=== PATIENT | female | born 1935 | race Caucasian/White ===

== ENCOUNTER → 2016-08-23 16:03 | Outpatient (CLI) | payer MEDICARE, OTHER ==
[2016-05-01 13:09] VITALS: BMI 19.5
[~2016-08-23 16:03] MED LIST: ADVAIR 250/501 DISK INH; COUMADIN3 MG PO; COUMADIN5 MG PO; DOXYCYCLINE HY100 M2 PO; GARLIC1 CAP PO; LEVAQUIN750 MG PO; LIPITOR40 MG PO; LOTENSIN20 MG; MEDROL DOSE PACK4 MG PO; MULTIPLE VITAMI1 TA1 PO; NORVASC5 MG PO; NYSTATIN ORAL SU5 ML PO; PRILOSEC20 MG PO; PROVENTIL HFA6.7 GM INH; SPIRIVA18 MCG INH; VITAMIN E400 UNI2 PO
== END | disposition home or self-care (01) ==
LOC: D.RAD 14:00
DX: J18.9 Pneumonia, unspecified organism (principal)

== ENCOUNTER → 2016-09-06 12:52 | Outpatient (CLI) | payer MEDICARE, OTHER ==
[2016-05-01 13:09] VITALS: BMI 19.5
== END | disposition home or self-care (01) ==
LOC: D.CT 12:52
DX: J18.9 Pneumonia, unspecified organism (principal)

== ENCOUNTER → 2016-09-27 13:22 | Outpatient (CLI) | payer MEDICARE, OTHER ==
[2016-05-01 13:09] VITALS: BMI 19.5
== END | disposition home or self-care (01) ==
LOC: D.CT 13:22
DX: I73.9 Peripheral vascular disease, unspecified (principal)

== ENCOUNTER → 2017-05-24 11:41 | Outpatient (CLI) | payer MEDICARE, OTHER ==
[2016-05-01 13:09] VITALS: BMI 19.5
== END | disposition home or self-care (01) ==
LOC: D.RAD 11:41
DX: J44.9 Chronic obstructive pulmonary disease, unspecified (principal)

== ENCOUNTER → 2017-09-30 12:56 | Outpatient (CLI) | payer MEDICARE, OTHER ==
[2016-05-01 13:09] VITALS: BMI 19.5
== END | disposition home or self-care (01) ==
LOC: D.RAD 12:56
DX: J18.9 Pneumonia, unspecified organism (principal)

== ENCOUNTER 2018-03-25 13:17 | Emergency (ER) | payer MEDICARE, OTHER ==
[~2018-03-25] VITALS: Ht 167.6 cm; Wt 44.1 kg
[2018-03-25 13:31] VITALS: Ht 167.6 cm; Wt 44.1 kg
[2018-03-25 13:58] LABS: BASOPHILS 0.9 % (0-2); EOSINOPHILS 3.6 % (0-7); HEMATOCRIT 28.8 % (36.0-48.0); HEMOGLOBIN 9.3 g/dL (12-16); IMMATURE GRANULOCYTES 0.2 % (0-5); LYMPHOCYTES 21.4 % (15-50); MCH 25.7 pg (26.0-34.0); MCHC 32.3 g/dL (31.0-37.0); MCV 79.6 fL (80.0-100.0); MEAN PLATELET VOLUME 10.6 fL (7.4-10.4); MONOCYTES 6.9 % (2-11); PLATELET COUNT 291 10x3/uL (130-400); RBC 3.62 10x6/uL (4.00-5.40); WBC 9.5 10x3/uL (4.8-10.8)
[2018-03-25 14:13] LABS: APTT 34.8 SECONDS (22.8-39.4); INR 2.17 (0.85-1.17); PROTIME 23.6 SECONDS (11.6-15.0)
[2018-03-25 14:16] LABS: ALBUMIN 3.4 g/dL (3.4-5.0); ALKALINE PHOSPHATASE 104 U/L (46-116); ALT (SGPT) 18 U/L (10-68); BILIRUBIN - TOTAL 0.33 mg/dL (0.2-1.3); CALC OSMOLALITY 272 mosm/kg (275-300); CALCIUM 8.6 mg/dL (8.5-10.1); CARBON DIOXIDE 33.2 mmol/L (21.0-32.0); CHLORIDE - SERUM 98 mmol/L (98-107); GLUCOSE 93 mg/dL (74-106); POTASSIUM - SERUM 4.6 mmol/L (3.5-5.1); PROTEIN - SERUM 6.9 g/dL (6.4-8.2); SODIUM 136 mmol/L (136-145); UREA NITROGEN 16 mg/dL (7-18); eGFR NON AFRICAN AMERICAN 56 mL/min (90-120)
[2018-03-25 14:27] LABS: CKMB 2.6 U/L (0.0-3.6); CREATINE KINASE 139 UL (21-215)
[2018-03-25 14:28] LABS: TROPONIN-I < 0.017 ng/mL (0.000-0.060)
[2018-03-25] MEDS ORDERED: VIBRAMYCIN50 MG/5 ML PO (15:44)
[2018-03-25 16:35] VITALS: BP 177/74
== END 2018-03-25 16:37 | disposition home or self-care (01) ==
LOC: D.ER 13:17
PROVIDERS: Emergency Medicine
DX: R06.00 Dyspnea, unspecified (principal); J44.9 Chronic obstructive pulmonary disease, unspecified; I10 Essential (primary) hypertension; I73.9 Peripheral vascular disease, unspecified; Z99.81 Dependence on supplemental oxygen; F17.200 Nicotine dependence, unspecified, uncomplicated

== ENCOUNTER 2019-02-01 17:36 | Inpatient (IN) | payer MEDICARE, OTHER ==
[~2019-02-01] VITALS: Ht 167.6 cm; Wt 40.8 kg
--- NOTE | ~2019-02-01 | EC ---
PATIENT:RL SIU DATE OF SERVICE: 02/01/19 SEX: F MEDICAL RECORD: [id number] DATE OF : 35 LOCATION:D.MS Paul221 AGE OF PATIENT: 83 ADMISSION DATE: 02/01/19 REFERRING PHYSICIAN: INTERPRETING PHYSICIAN: GABRIELE HERMAN MD ECHOCARDIOGRAM REPORT ECHO CHARGES 4 ECHO COMPLETE Date: 02/02/19 CLINICAL DIAGNOSIS: CHF/DYSPNEA/OK ECHOCARDIOGRAPHIC MEASUREMENTS (adult normal given) AC root (d.<3.7cm) 2.5 cm LV Septum d (<1.2 cm> 1.2 cm Valve Excursion 0.5 cm LV Septum (systole) 1.7 cm Left Atria (s.<4.0cm> 2.5 cm LVPW d(<1.2cm) 1.1 cm RV (d.<2.3cm) 2.0 cm LVPW (sytole) 1.7 cm LV diastole(<5.6CM) 5.4 cm MV E-F(>70mm/sec) cm LV systole 3.3 cm LVOT Diameter 1.5 cm MV exc.(>10mm) cm Est.ejection fraction (50-75%) % DOPPLER: LVIT cm/sec A 200 cm/sec E 163 cm/sec LA cm/sec RVSP 54.0 mmHg LVOT 116 cm/sec AOP1/2T m/s Asc. Ao 391 cm/sec RVOT 97.0 cm/sec RA cm/sec PA 253 cm/sec AV Gradient Peak 61.3 mmHg AV Mean 39.0 mmHg AV Area 0.5 cm MV Gradient Peak 15.4 mmHg MV Mean 4.7 mmHg MV Area cm COMMENTS: Coronary Care Unit Nurse: Kailyn WILSONOE Trust Vault Custodian: 1 Dr. Herman TAPE# PACS Pericardial Effusion N DATE OF SERVICE: 02/02/2019 PROCEDURE: Echocardiogram. FINDINGS: 1. Left ventricular chamber size is within normal limits. Left ventricular systolic function is normal. Overall ejection fraction estimated at 55%. 2. Left atrium, right atrium, right chamber size is within normal limits. 3. Valvular structures: Aortic valve demonstrates severe calcific aortic stenosis, valve area calculates to 0.5 cm-squared with gradient of 61 mm across ECHOCARDIOGRAM REPORT [id number] RL SIU the valve. The remaining valvular structures have normal structure and motion. 4. Doppler interrogation elsewise reveals moderate mitral regurgitation, moderate tricuspid regurgitation, no other valvular insufficiency or stenosis. Pulmonary systolic pressure is elevated at 54 mmHg. 5. No evidence of pericardial effusion or left ventricular thrombus. TRANSINT:[id number] Voice Confirmation ID: [id number] DOCUMENT ID: [id number] GABRIELE HERMAN MD CC: [id number] DICTATION DATE: 02/02/19 1108 ALUMINA PLANT SUPERVISOR: 02/02/19 1155 ADM IN [place] [address] [place] [address]
--- NOTE | ~2019-02-01 | OP ---
PATIENT NAME: RL ISU MEDICAL RECORD: [id number] :35 LOCATION:D.M2 D.2119 ADMISSION DATE:02/01/19 SURGEON: GABRIELE SILVER MD DATE OF OPERATION: 02/04/2019 PROCEDURE: Selective coronary angiography. INDICATION: Non-Q-wave myocardial infarction. DESCRIPTION OF PROCEDURE: After informed consent was obtained and after a detailed description of the risks, benefits as well as alternative therapies, the patient elected to proceed with angiogram and heart catheterization. The right radial area was prepped and draped in normal sterile fashion. Right radial artery was cannulated via modified Seldinger technique with placement of 5-Indonesian sheath. All catheters exchanged through this sheath. FINDINGS: Left ventriculogram was not performed due to inability to cross the aortic valve secondary to the aortic stenosis. SELECTIVE CORONARY ANGIOGRAPHY: Left main, left anterior descending, left circumflex, right coronary all have gzac-sz-kuptiygz irregularities, but no discrete flow-limiting stenosis. OVERALL IMPRESSION: Diffuse korf-rz-ornvtyvf coronary artery disease is present, but no flow-limiting stenosis. Her myocardial infarction was secondary to demand ischemia from the aortic stenosis. Center medical management on treatment of the aortic stenosis. TRANSINT:[id number] Voice Confirmation ID: [id number] DOCUMENT ID: [id number] GABRIELE SILVER MD CC: [id number] DICTATION DATE: 02/04/19 1252 AUTOMATION CONTROLS ENGINEER: 02/04/19 1336 ADM IN [facility] [address] [place] [address]
--- NOTE | ~2019-02-01 | HEMODYNAMI ---
PATIENT:RL SIU MEDICAL RECORD: [id number] : 35 [id number] ADMISSION DATE: 02/01/19 Generatedon:02/04/201912:57 Patient name: RL SIU Patient #: [id number] SSN: : 1935 Date of study: 02/04/2019 Page: Of Hemodynamic Procedure Report Patient Data Patient Demographics Procedure consent was obtained First Name: RL Gender: Female Last Name: SALBAODR : 1935 Middle Initial: LUCIO Age: 83 year(s) Patient #: [id number] Race: Unknown Additional ID: [id number] Contact details [address]: [address] [place] [address] State: [place] City: [place] Zip code: [address] Past Medical History Allergies Allergen Reaction Date Comments Reported Other allergy 02/04/2019 Contrast, PCN, ASA, Adhesives. Admission Admission Data Admission Date: 02/01/2019 Admission Time: 18:39 Admit Source: Other Room #: D.2119 Lab Results Lab Result Date: 02/04/2019 Lab Result Time: 4:37 Biochemistry Name Units Result Min Max BUN mg/dl 26 --(----)-* 7 18 Creatinine mg/dl 1 --(--*-)-- 0.6 1.3 CBC Name Units Result Min Max Hematocrit % 71.9 --(----)-* 42 54 Hemoglobin g/dl 10.8 *-(----)-- 13.5 17.5 Procedure Procedure Types Cath Procedure Diagnostic Procedure LHC LHC w/Coronaries Procedure Description Procedure Date Procedure Date: 02/04/2019 Procedure Start Time: 12:43 Procedure End Time: 12:52 Procedure Staff Name Function Shorty Cardenas RT Scrub Sharmaine Juarez RN Nurse Ronald Herman MD Performing Physician Madhu Dash RT Monitor Procedure Data Cath Procedure Fluoroscopy Diagnostic fluoroscopy Total fluoroscopy Time: 2 time: 2 min min Diagnostic fluoroscopy Total fluoroscopy dose: 487 dose: 487 mGy mGy Contrast Material Contrast Material Type Amount (ml) Isovue 300 55 Entry Location Entry Primary Successful Side Size Upsize Upsize Entry Closure Levy ccessful Closure Location (Fr) 1 (Fr) 2 (Fr) Remarks Device Remarks Radial Right 6 Fr Mechanical artery Short Compression Estimated blood loss: 5 ml Diagnostic catheters Device Type Used For End Catheter Placement DIAGNOSTIC Halstad 110cm 5 Procedure Fr catheter ([id number]) Procedure Complications No complications Procedure Medications Medication Administration Route Dosage Oxygen 8 l/min Lidocaine 2% added to field 20 Heparin Flush Bag added to field 2 bags (1000units/500ml NS) 0.9% NaCl I.V. Radial Cocktail I.A. 1 syringe (Verapamil 2mg/Nitro 400mcg/Heparin 1500units) Hemodynamics Rest HGB: 10.8 (g/dl) Heart Rate: 81 (bpm) Snapshots Pre Cath Intra NCS Post Cath Vital Signs Time Heart Resp SPO2 etCO2 NIBP (mmHg) Rhythm Pain Sedation Rate (ipm) (%) (mmHg) Status Level (bpm) 12:27:34 77 12 95 0 155/76(113) NSR 0 (11) 10(A) , No pain 12:31:29 80 15 96 0 181/76(116) NSR 0 (11) 10(A) , No pain 12:35:25 78 22 93 0 164/77(109) NSR 0 (11) 10(A) , No pain 12:39:20 78 20 94 0 162/96(127) NSR 0 (11) 10(A) , No pain 12:43:20 90 39 100 0 154/58(114) NSR 0 (11) 10(A) , No pain 12:47:03 81 31 93 0 128/57(90) NSR 0 (11) 10(A) , No pain 12:50:44 87 16 94 0 117/53(92) NSR 0 (11) 10(A) , No pain Medications Time Medication Route Dose Verified Delivered Reason Notes Effectiveness by by 12:18:06 Oxygen NC- 8 l/min Ronald Schmid used for Cont fr om high Virgil Juarez steel welder respiratory. flow Instructed to monitor closely due to COPD and resp. distress. 12:37:07 Lidocaine 2% added 20ml Ronald Cardenas for local to vial Virgil Herman MD anesthetic field 12:37:18 Heparin Flush added 2 bags Ronald Cardenas used for Bag to Virgil Herman MD procedure (1000units/500ml field NS) 12:37:24 0.9% NaCl I.V. KVO Ronald Schmid Per rate Virgil Juarez RN physician ml/hr 12:44:51 Radial Cocktail I.A. 1 Ronald Cardenas for (Verapamil syringe Virgil Herman MD vasodilation 2mg/Nitro 400mcg/Hepari Procedure Log Time Note 12:00:56 Shorty Cardenas RT(R) (CV) sent for patient. Start room use. 12:18:06 Oxygen 8 l/min NC- high flow was administered by Sharmaine Juarez RN; used for procedure; Cont from respiratory. Instructed to monitor closely due to COPD and resp. distress. 12:18:26 Informed consent obtained and on chart 12:18:31 Admit Source: Other 12:18:54 Diagnostic Cath status Urgent 12:19:05 Time tracking: Regular hours (M-F 7:00 - 5:00) 12:19:08 Plan of Care:Hemodynamics will remain stable., Cardiac rhythm will remain stable., Comfort level will be maintained., Respiratory function will remain adequate., Patient/ family verbilizes understanding of procedure., Procedure tolerated without complication., Recovers from procedure without complications.. 12:19:16 Patient received from Med/Surg to CCL 2 Alert and oriented. Tansferred to table in Supine position. 12:19:17 Warm blankets applied, and hollis hugger turned on for patient comfort. 12:19:18 ECG and BP/O2 sat monitors applied to patient. 12:19:18 Correct patient and procedure confirmed by team. 12:19:50 H&P Date Dictated: 02/02/2019 Within 30 days and on chart.. 12:19:53 Pre-op teaching completed and patient verbalized understanding. 12:19:53 Pre-procedure instructions explained to patient. 12:19:54 Family in patients room. 12:19:56 Patient NPO since Midnight. 12:25:09 Patient allergic to Other allergyContrast, PCN, ASA, Adhesives. 12:25:10 Is the patient allergic to Iodine/contrast media? Yes. 12:25:11 Was the patient premedicated? Yes 12:26:51 Is patient on blood thinner?Yes 12:26:53 ACC The patient was administered the following blood thiners within the last 24 hours: ACCPlavix 12:27:04 Vital chart was started 12:27:07 Baseline sample Acquired. 12:27:11 Rhythm: sinus rhythm 12:27:13 Full Disclosure recording started 12:35:38 Patient diabetic? No. 12:35:41 Previous problem with sedation/anesthesia? No ? 12:35:43 Snore? No 12:35:44 Sleep apnea? No 12:35:45 Deviated septum? No 12:35:46 Sticks out tongue? Yes 12:35:46 Opens mouth fully? Yes 12:35:54 Airway obstruction? Yes COPD 12:35:56 Dentures? Yes OUT 12:35:59 Pre procedure: right dorsailis pedis pulse 2+ Normal; easily identifiable; not easily obliterated 12:36:01 Modified Jero's test Ulnar < 7 seconds 12:36:03 Patient pain scale 0/10 ?. 12:36:13 IV patent on arrival in left hand with 0.9% NaCl at [facility]. 12:36:49 Lab Result : Hemoglobin 10.8 g/dl 12:36:49 Lab Result : Hematocrit 71.9 % 12:36:49 Lab Result : BUN 26 mg/dl 12:36:49 Lab Result : Creatinine 1 mg/dl 12:36:51 Lab results completed and on chart. 12:36:55 Right Radial & Right Groin area was prepped with chlora-prep and draped in sterile fashion 12:36:57 Sharps counted by scrub and verified by R.N. 12:36:57 Alarms reviewed by R. N. 12:37:00 Use device set Radial Dx or PCI 12:37:01 Medline Cath Pack ([id number]) opened to sterile field. 12:37:01 ACIST Syringe (19814) opened to sterile field. 12:37:02 ACIST Manifold (96289) opened to sterile field. 12:37:02 ACIST Hand Control (09992) opened to sterile field. 12:37:02 Bag Decanter (2002S) opened to sterile field. 12:37:03 MBrace Wrist Support ([id number]) opened to sterile field. 12:37:03 Tegaderm 4 x 4 (1626W) opened to sterile field. 12:37:05 SHEATH 6FR Slender (15-0568) opened to sterile field. 12:37:05 EMERALD Guide Wire (100-485) opened to sterile field. 12:37:07 Lidocaine 2% 20ml vial added to field was administered by Ronald Herman MD; for local anesthetic; 12:37:12 Physician paged 12:37:18 Heparin Flush Bag (1000units/500ml NS) 2 bags added to field was administered by Ronald Herman MD; used for procedure; 12:37:24 0.9% NaCl KVO rate ml/hr I.V. was administered by Sharmaine Juarez RN; Per physician; 12:40:41 Zero performed for pressure channel P1 12:40:45 Zero performed for pressure channel P1 12:40:51 Final Timeout: patient, procedure, and site verified with staff and physician. All members of the team are in agreement. 12:40:51 --------ALL STOP TIME OUT------ 12:40:51 Physician arrived 12:40:53 Right Radial & Right Groin site verified by team. 12:40:56 Fire Safety Assessment: A--An alcohol-based skin anteseptic being used preoperatively., C--Open oxygen or nitrous oxide is being used., D--An ESU, laser, or fiber-optic light is being used. 12:41:01 Physical assessment completed. ASA score P 3 - A patient with severe systemic disease as per Ronald Herman MD. 12:41:18 3a) 45-59 Moderately reduced kidney function. 12:41:21 Maximum allowable contrast does (3.7 X eGFR X 0.75)155 ml. 12:41:31 Sedation plan: None Medication:Lidocaine 12:41:39 Procedure started. 12:43:37 Local anesthetic to right radial artery with Lidocaine 2% by Ronald Herman MD.INITIAL ACCESS ONLY 12:43:44 A 6 Fr Short sheath was inserted into the Right Radial artery 12:43:57 A DIAGNOSTIC Halstad 110cm 5 Fr catheter (062596) was advanced over the wire and used for Procedure. 12:44:51 Radial Cocktail (Verapamil 2mg/Nitro 400mcg/Heparin 1500units) 1 syringe I.A. was administered by Ronald Herman MD; for vasodilation; 12:45:09 GLIDE WIRE ANGLE 260cm (TN0119) opened to sterile field. 12:45:19 GLIDE wire advanced. 12:45:57 Wire removed. 12:46:17 LCA angiography performed. 12:48:07 RCA angiography performed. 12:48:20 Catheter removed. 12:48:26 TR BAND Standard ([id number]) opened to sterile field. 12:48:34 Sheath removed intact; hemostasis achieved with Mechanical Compression to the Right Radial artery. 12:50:10 Procedure ended.(Physican Out) 12:50:54 Fluoroscopy time 02.00 minutes. 12:50:59 Fluoroscopy dose: 487 mGy 12:50:59 Flurop Dose total: 487 12:51:19 Contrast amount:Isovue 300 55ml. 12:51:21 Sharps counted by scrub and verified by R.N. 12:51:25 TR band inflated with 13cc of air. 12:51:27 Insertion/operative site no bleeding no hematoma. 12:51:34 Post right radial artery:stable, soft, clean and dry 12:51:35 Post Procedure Pulses reassessed and unchanged 12:51:38 Post-procedure physical assessment completed. ASA score P 3 - A patient with severe systemic disease as per Ronald Herman MD. 12:51:40 Post procedure rhythm: unchanged. 12:51:41 Estimated blood loss: 5 ml 12:51:42 Post procedure instruction explained to patient.Patient verbalizes understanding. 12:51:43 Patient needs reinforcement of post procedure teaching. 12:52:12 Procedure and supply charges have been captured, reviewed, submitted and are correct. 12:52:14 Procedure Complication : No complications 12:52:16 Vital chart was stopped 12:52:17 See physician's report for complete and final results. 12:52:18 Report given to PCU. 12:52:20 Patient transfered to PCU with Stretcher. 12:52:22 Full Disclosure recording stopped 12:52:22 Procedure ended. 12:52:26 End room use (Document Last) Device Usage Item Name Manufacture Quantity Catalog Hospital Part Current Minimal Lot# / Number Charge Number Stock Stock Serial# Code ACIST Acist 1 68683 387441 987683 [id number] 20 [id number] Engineering Medline Medline 1 [id number] 636474 14971 657358 5 Cath Pack ([id number]) Bag Microtek 1 2001S 935696 88051 729477 5 Decanter Medical Inc. () ACIST Hand Acist 1 78491 224642 811665 250916 5 Control Medical (67397) Systems Inc ACIST Acist 1 76438 936250 607771 614076 5 Manifold Medical (85103) Systems Inc Tegaderm 4 3M 1 1626W 363940 047419 230637 5 x 4 (1626W) MBrace Advanced 1 140-0250-00 378404 98794 638664 5 Wrist Vascular Support Dynamics ([id number]) EMERALD [place] 1 199-704 608739 035236 216566 5 Guide Wire [facility] (986-508) SHEATH 6FR Terumo 1 [id number] 830241 062071 347981 5 Slender (80-1060) DIAGNOSTIC Terumo 1 40-4843 659089 430135 678906 5 Halstad 110cm 5 Fr catheter (961404) GLIDE WIRE Terumo 1 [id number] 413985 558664 651443 5 ANGLE 260cm (VE6847) TR BAND Terumo 1 [id number] 356830 228561 102575 40 Standard (DUD17LYM) Signature Audit [place] Stage Time Signature Unsigned Intra-Procedure 02/04/2019 Madhu Dash RT(R) 12:53:16 PM RT(R) 02/04/2019 12:56:55 PM Intra-Procedure 02/04/2019 Madhu Dash 12:57:32 PM RT(R) Signatures Monitor : Madhu Dash RT Signature : Date : Time : [facility] [address] [place] [address]
[~2019-02-01 17:36] MED LIST changes: +LOTENSIN 10 MG10 MG PO; -LOTENSIN20 MG; +VIBRAMYCIN50 MG/5 ML PO
[2019-02-01 17:51] VITALS: BP 163/76
[2019-02-01 18:19] LABS: BASOPHILS 0.5 % (0-2); EOSINOPHILS 1.2 % (0-7); HEMOGLOBIN 8.5 g/dL (12-16); IMMATURE GRANULOCYTES 0.2 % (0-5); LYMPHOCYTES 10.5 % (15-50); MCH 20.6 pg (26.0-34.0); MCHC 30.4 g/dL (31.0-37.0); MEAN PLATELET VOLUME 11.5 fL (7.4-10.4); MONOCYTES 4.7 % (2-11); NEUTROPHILS 82.9 % (40-80); PLATELET COUNT 267 10x3/uL (130-400); RBC 4.12 10x6/uL (4.00-5.40); RDW 17.4 % (11.5-14.5)
[2019-02-01 18:24] LABS: APTT 42.1 SECONDS (22.8-39.4); INR 2.74 (0.85-1.17); PROTIME 28.3 SECONDS (11.6-15.0)
[2019-02-01 18:25] LABS: ALKALINE PHOSPHATASE 94 U/L (46-116); ALT (SGPT) 22 U/L (10-68); BILIRUBIN - TOTAL 0.39 mg/dL (0.2-1.3); CALC OSMOLALITY 282 mosm/kg (275-300); CALCIUM 8.3 mg/dL (8.5-10.1); CARBON DIOXIDE 28.1 mmol/L (21.0-32.0); CHLORIDE - SERUM 104 mmol/L (98-107); CKMB 2.7 U/L (0.0-3.6); CREATINE KINASE 78 UL (21-215); CREATININE - SERUM 0.2 mg/dL (0.6-1.3); POTASSIUM - SERUM 4.3 mmol/L (3.5-5.1); PRO BNP 15555 pg/mL (0-450); PROTEIN - SERUM 6.5 g/dL (6.4-8.2); SODIUM 139 mmol/L (136-145); UREA NITROGEN 15 mg/dL (7-18); eGFR NON AFRICAN AMERICAN > 90 mL/min (90-120)
[2019-02-01 18:28] LABS: GLUCOSE 171 mg/dL (74-106)
[2019-02-01 18:51] LABS: TROPONIN-I 0.554 ng/mL (0.000-0.060)
--- NOTE | 2019-02-01 19:07 | NUR ---
PT LAYING IN BED. RESIPRATIONS ARE EVEN AND UNLABORED. NO DISTRESS NTOED VSS. PT IS BEING ADMINISTERED O2 VIA BIPAP. WILL CONTINUE TO MONITOR.
--- NOTE | 2019-02-01 19:46 | NUR ---
DR TORRES AT PATIENT BEDSIDE AT THIS TIME
[2019-02-01 20:04] LABS: % SATURATION 3 % (15-55); IRON 12 ug/dl (35-150); TOTAL IRON BIND CAPACITY 394 ug/dl (260-445); UNSAT IRON BIND CAPACITY 382 ug/dl (150-375)
--- NOTE | 2019-02-01 20:37 | NUR ---
RECEIVED PT TO FLOOR FROM ER VIA STRETCHER. PT TAKEN OFF OF BIPAP AND PUT ON 7L HI-SERGEI NC TO EAT. REVIEWED HOME MEDS AND HISTORY. ASSESSMENT COMPLETE PER FLOW-SHEET. WILL CONTINUE TO MONITOR.
[2019-02-01] MEDS ORDERED: POT CHLORIDE TAB 10M PO (21:11)
[2019-02-01] MEDS ORDERED: FUROSEMIDE20 MG PO (21:12)
[2019-02-01 21:22] VITALS: BP 131/45
[2019-02-02] VITALS (12 sets, daily range): BP systolic 102–132; BP diastolic 40–65; Ht 167.6 cm; Wt 40.8 kg
[2019-02-02 00:15] LABS: CKMB 6.8 U/L (0.0-3.6); CREATINE KINASE 265 UL (21-215)
[2019-02-02 00:16] LABS: TROPONIN-I 0.598 ng/mL (0.000-0.060)
[2019-02-02 05:10] LABS: BASOPHILS 0.1 % (0-2); EOSINOPHILS 0 % (0-7); HEMATOCRIT 25.5 % (36.0-48.0); HEMOGLOBIN 7.7 g/dL (12-16); LYMPHOCYTES 8.1 % (15-50); MCH 20.2 pg (26.0-34.0); MCHC 30.2 g/dL (31.0-37.0); MCV 66.9 fL (80.0-100.0); MEAN PLATELET VOLUME 10.7 fL (7.4-10.4); MONOCYTES 0.4 % (2-11); NEUTROPHILS 91.4 % (40-80); PLATELET COUNT 295 10x3/uL (130-400); RBC 3.81 10x6/uL (4.00-5.40); RDW 17.5 % (11.5-14.5)
[2019-02-02 05:20] LABS: INR 2.65 (0.85-1.17); PROTIME 27.5 SECONDS (11.6-15.0)
[2019-02-02 05:38] LABS: WBC 7.6 10x3/uL (4.8-10.8)
[2019-02-02 05:56] LABS: ALBUMIN 2.7 g/dL (3.4-5.0); ALKALINE PHOSPHATASE 79 U/L (46-116); ALT (SGPT) 21 U/L (10-68); BILIRUBIN - TOTAL 0.29 mg/dL (0.2-1.3); CALC OSMOLALITY 285 mosm/kg (275-300); CALCIUM 8.5 mg/dL (8.5-10.1); CHLORIDE - SERUM 102 mmol/L (98-107); CKMB 2.1 U/L (0.0-3.6); CREATINE KINASE 51 UL (21-215); GLUCOSE 201 mg/dL (74-106); POTASSIUM - SERUM 4.2 mmol/L (3.5-5.1); PROTEIN - SERUM 6.4 g/dL (6.4-8.2); SODIUM 139 mmol/L (136-145); UREA NITROGEN 17 mg/dL (7-18)
[2019-02-02 06:10] LABS: CREATININE - SERUM 1.1 mg/dL (0.6-1.3); TROPONIN-I 0.602 ng/mL (0.000-0.060); eGFR NON AFRICAN AMERICAN 50 mL/min (90-120)
[2019-02-02 09:34] LABS: APPEARANCE CLEAR (CLEAR); BACTERIA FEW /hpf (NONE SEEN); BILIRUBIN NEGATIVE (NEGATIVE); COLOR STRAW (YELLOW); EPITHELIAL CELLS RARE /hpf (0-5); GLUCOSE NEGATIVE (NEGATIVE); KETONE NEGATIVE (NEGATIVE); NITRITE NEGATIVE (NEGATIVE); PROTEIN NEGATIVE (NEGATIVE); RED CELLS - URINE RARE /hpf (0-5); SPECIFIC GRAVITY 1.005 (1.005-1.020); UROBILINOGEN NORMAL (NORMAL); WHITE CELLS - URINE OCC /hpf (0-5)
--- NOTE | 2019-02-02 09:50 | CN ---
PATIENT NAME:RL SIU MEDICAL RECORD: [id number] : 35 LOCATION:D.MS Paul2218 ADMIT DATE: 02/01/19 ACCOUNT: [id number] CONSULTING PHYSICIAN: GABRIELE SILVER MD REFERRING PHYSICIAN: VIVIANE TORRES DO DATE OF CONSULTATION: 02/02/2019 DIAGNOSES: 1. Non-Q-wave myocardial infarction. 2. Coronary artery disease. 3. Chronic obstructive pulmonary disease. 4. Smoking history. 5. Hyperlipidemia. 6. Hypertension. 7. Coumadin anticoagulation. 8. Gastroesophageal reflux disease. HISTORY OF PRESENT ILLNESS: Mrs. Siu presents with increasing shortness of breath and chest pain, has a positive troponin for a non-Q-wave myocardial infarction. She does not have a history of coronary artery disease. She has a history of aortic stenosis. She also has a history of congestive heart failure. Her chest x-ray was compatible with pulmonary edema. She has received IV Lasix. She has received diuresis. Her breathing is better. She continues to be treated aggressively for her COPD. PHYSICAL EXAMINATION: GENERAL APPEARANCE: Well-nourished, well-developed, appears stated age. Level of distress, comfortable. PSYCHIATRIC: Mental status, alert, normal affect. Orientation, oriented to time, place and person. EYES: Lids and conjunctiva, noninjected. No discharge, no pallor. ENT: Lips, teeth, gums, normal dentition. Oropharynx, no cyanosis, no pallor. NECK: Carotid arteries, bilateral normal upstroke, no bruits, no thrills. JUGULAR VEINS: No jugular venous pressure or distention. CERVICAL LYMPH NODES: Nontender, nonenlarged. THYROID: Not enlarged. Nontender. No nodules. LUNGS: Respiratory effort, unlabored. CHEST: Normal curvature. No thoracic deformity. No chest wall tenderness. Percussion, resonant. Auscultation, clear. No wheezes, no rales, no rhonchi. CARDIOVASCULAR: Precordial exam, nondisplaced. No heaves or pericardial thrills. Rate and rhythm, regular. Heart sounds, normal S1, normal S2. No S3, no gallop, no rub. Systolic murmur, not heard. Diastolic murmur, not heard. EXTREMITIES: No cyanosis, no edema. Peripheral pulses, full and equal in all extremities, except as noted. No bruits appreciated. ABDOMEN: Soft, nondistended. Normal aorta. No bruit. Nontender. No masses. Liver, nontender, no hepatomegaly. Spleen, nontender, no splenomegaly. MUSCULOSKELETAL: No joint tenderness. No joint swelling. No erythema. NEUROLOGICAL: Normal gait, normal strength, normal tone. SKIN: Warm and dry. OVERALL IMPRESSION: Non-Q-wave myocardial infarction. At this time, we will get an echocardiogram today, start her on Plavix. She has already been started on Lopressor and her heart rate is better. At this time, we would hold her Lotensin and center treatment of the hypertension on beta blockade to lower the heart rate as well. We will continue her statin. With continued shortness of CONSULT REPORT [id number] RL SIU breath and chest pain, would consider coronary angiography depending upon how she does clinically with medical management and the results of the echocardiogram. TRANSINT:[id number] Voice Confirmation ID: [id number] DOCUMENT ID: [id number] GABRIELE SILVER MD at 0950 CC: [id number] DICTATION DATE: 02/02/19813 EPIC INTERFACE ANALYST: 02/02/19 08 ADM IN [facility] [address] [place] [id number]
[2019-02-02 12:47] LABS: CKMB 1.8 U/L (0.0-3.6); CREATINE KINASE 66 UL (21-215)
[2019-02-02 12:50] LABS: TROPONIN-I 0.445 ng/mL (0.000-0.060)
[2019-02-02 14:04] LABS: % SATURATION 2 % (15-55); IRON 9 ug/dl (35-150); TOTAL IRON BIND CAPACITY 359 ug/dl (260-445); UNSAT IRON BIND CAPACITY 350 ug/dl (150-375)
[2019-02-02 14:18] LABS: FERRITIN 14 ng/mL (3-244); LDH 362 U/L (81-234)
--- NOTE | 2019-02-02 18:55 | NUR ---
I have reviewed this patient and I concur with the Shift Assessment completed by the Licensed Practical Nurse today this shift.
--- NOTE | 2019-02-02 20:00 | NUR ---
ASSESSMENT PER FLOWSHEET. O2 ON 6 LITERS HIGH FLOW. HOB UP 80 DEGREES. SON AT BEDSIDE. TELM. SHOWS SR WITH HR 90. SCD'S ON KEVIN MAT TO BED SR UP X2 CALL LIGHT WITHIN REACH. CHURCH TO BEDSIDE DRAINAGE.
--- NOTE | 2019-02-02 20:48 | NUR ---
I have reviewed this patient and I concur with the Shift Assessment completed by the Licensed Practical Nurse today this shift.
--- NOTE | 2019-02-02 21:30 | NUR ---
MEDS GIVEN PER MAR.
--- NOTE | 2019-02-02 22:00 | NUR ---
REQUEST BIPAP MACHINE BE ON. RT HERE TO PUT BIPAP ON.
--- NOTE | 2019-02-02 22:45 | NUR ---
PATIENT TAKES OFF BIPAP. TURNS SELF IN BED.
--- NOTE | 2019-02-03 | NUR ---
EYES CLOSED RESIRATIONS WITH EASE AND UNLABORED.
[2019-02-03 01:17] VITALS: BP 116/40
[2019-02-03 05:20] VITALS: BP 123/42
[2019-02-03 06:26] LABS: BASOPHILS 0 % (0-2); EOSINOPHILS 0 % (0-7); HEMATOCRIT 30.3 % (36.0-48.0); IMMATURE GRANULOCYTES 0.2 % (0-5); LYMPHOCYTES 6.1 % (15-50); MCH 22.7 pg (26.0-34.0); MCHC 32.3 g/dL (31.0-37.0); MEAN PLATELET VOLUME 10.8 fL (7.4-10.4); MONOCYTES 2.6 % (2-11); NEUTROPHILS 91.1 % (40-80); PLATELET COUNT 267 10x3/uL (130-400); RBC 4.31 10x6/uL (4.00-5.40); RDW 19.9 % (11.5-14.5)
[2019-02-03 06:29] LABS: HEMOGLOBIN 9.8 g/dL (12-16); MCV 70.3 fL (80.0-100.0); WBC 12.1 10x3/uL (4.8-10.8)
[2019-02-03 06:48] LABS: ANION GAP 9.3 mmol/L (8-16); CALCIUM 8.5 mg/dL (8.5-10.1); CARBON DIOXIDE 30.6 mmol/L (21.0-32.0); CREATININE - SERUM 1.2 mg/dL (0.6-1.3); POTASSIUM - SERUM 3.9 mmol/L (3.5-5.1)
[2019-02-03 07:02] LABS: INR 2.31 (0.85-1.17); PROTIME 24.7 SECONDS (11.6-15.0)
[2019-02-03 08:44] VITALS: BP 133/59
[2019-02-03 12:11] LABS: FOLATE (FOLIC ACID) - SERUM >20.0 ng/mL (>3.0)
[2019-02-03 12:50] VITALS: BP 134/63
[2019-02-03 16:41] VITALS: BP 158/67
--- NOTE | 2019-02-03 20:00 | NUR ---
ASSESSMENT PER FLOWSHEET. IV PATENT RT FOREARM SALINE LOCKED. PT C/O BEING SOB AND TOO HOT. FAN PLACED IN ROOM AIR CONDITIONER LOWERED TO 55 DEGREES. PT REQUESTING HER BIPAP MACHINE NOTIFIED RT TECH.
--- NOTE | 2019-02-03 20:15 | NUR ---
RT TECH HERE PLACED BIPAP ON PATIENT.
[2019-02-03 20:24] VITALS: BP 127/79
--- NOTE | 2019-02-03 21:30 | NUR ---
MEDS GIVEN PER MAR.
--- NOTE | 2019-02-03 23:00 | NUR ---
PATIENT REMOVED BIPAP MACHINE. FEELING BETTER NOW.
[2019-02-04 00:36] VITALS: BP 161/60
[2019-02-04 04:45] VITALS: BP 140/60
[2019-02-04 05:19] LABS: ANION GAP 9.2 mmol/L (8-16); CALCIUM 8.7 mg/dL (8.5-10.1); CARBON DIOXIDE 31.3 mmol/L (21.0-32.0)
[2019-02-04 05:27] VITALS: BP 133/62
[2019-02-04 05:32] LABS: POTASSIUM - SERUM 4.5 mmol/L (3.5-5.1)
[2019-02-04 05:48] LABS: HEMOGLOBIN 10.5 g/dL (12-16); MCH 22.9 pg (26.0-34.0); MCHC 31.8 g/dL (31.0-37.0); MCV 71.9 fL (80.0-100.0); MEAN PLATELET VOLUME 11.4 fL (7.4-10.4); PLATELET COUNT 258 10x3/uL (130-400); RBC 4.59 10x6/uL (4.00-5.40); RDW 21.1 % (11.5-14.5); WBC 10.8 10x3/uL (4.8-10.8)
[2019-02-04 05:58] LABS: INR 1.4 (0.85-1.17); PROTIME 16.6 SECONDS (11.6-15.0)
[2019-02-04 07:45] LABS: LYMPHOCYTES 17 % (15-50); MONOCYTES 4 % (2-11); NEUTROPHILS 78 % (40-80); PLATELET ESTIMATE NORMAL
[2019-02-04 07:46] LABS: ANISOCYTOSIS OCC; HYPOCHROMASIA OCC
[2019-02-04 08:50] VITALS: BP 140/58
--- NOTE | 2019-02-04 09:57 | MORECARE ---
CASE MANAGEMENT DISCHARGE SUMMARY PATIENT: RL ISU UNIT: [id number] ADM DATE: 02/01/19 AGE: 83 : 35 SEX: F ROOM/BED: D.2218 AUTHOR: ELIZADOC PHYSICIAN: REFERRING PHYSICIAN: VIVIANE TORRES DO DATE OF SERVICE: 02/04/19 Discharge Plan Patient Name: RL SIU Facility: [facility]:[place] : 1935 Planned Disposition: Anticipated Discharge Date: Discharge Date: Expected LOS: Initial Reviewer: [email or web address] Initial Review Date: 02/04/2019 Generated: 02/04/19 10:57 am Comments DCP- Discharge Planning Updated by [email or web address]: Merna Maribel on 02/04/19 8:[address] Patient Name: RL SIU Admission Status: ER Accout number: [id number] Admission Date: 02-01-2019 : 1935 Admission Diagnosis:HEART FAILURE, UNSPECIFIED Attending: VIVIANE TORRES Current LOS: 3 Anticipated DC Date: Planned Disposition: Primary Insurance: MEDICARE A & B Discharge Planning Comments: CM MET WITH PATIENT ABOUT DC PLANNING/NEEDS. STATES LIVES WITH HER SON AND IS INDEPENDANT AT HOME. PT AT BEDSIDE NOW. I DISCUSSED HH, SNF, AND [facility] WITH HER. SHE IS NOT INTERESTED RIGHT NOW BUT SHE LOOKS LIKE SHE COULD BENEFIT FROM IT. I NOTICED SHE WAS VERY WEAK AND SOB. CM TO FOLLOW AND ASSIST NEEDED. Fish Processor: Merna López DCPIA - Discharge Planning Initial Assessment Updated by [email or web address]: Merna López on 02/04/19 9:52 am * Is the patient Alert and Oriented? Yes * PCP IN [place] * Pharmacy [facility] * Preadmission Environment Home with Family * ADLs Independent * Equipment Cane Nebulizer Oxygen * Other Equipment NOT SURE IT MAY BE A TRILOGY. * List name and contact numbers for known caregivers / representatives who currently or will assist patient after discharge: EKATERINA ANDRES, * Community resources currently utilized None * Additional services required to return to the preadmission environment? Yes * Can the patient safely return to the preadmission environment? Yes * Has this patient been hospitalized within the prior 30 days at any hospital? No Patient Name: RL SIU Page 11762 at 0957 All edits/amendments must be made on the electronic document DICTATION DATE: 02/04/19955 TIMBER SIZER: DIANELYS 02/04/19955 RPT#: [id number] DC DATE: STATUS: ADM IN [facility] [address] [place] [address] END OF REPORT
--- NOTE | 2019-02-04 11:30 | NUR ---
CONSENTS TO [facility]
--- NOTE | 2019-02-04 11:40 | NUR ---
IV SITED TO LEFT FOREARM X2 STICKS USING ASEPTIC TECH,20G. IV DCD FRON RIGHT AC WITH CATH TIP INTACT.PT STATES IT WAS TO TENDER.PREMEDS ORDERED
--- NOTE | 2019-02-04 12:14 | NUR ---
TO BARREL CHARRER HELPER VIA BED
[2019-02-04 13:18] VITALS: BP 128/65
--- NOTE | 2019-02-04 13:21 | NUR ---
RECIEVED FROM ELECTRICAL ELECTRONICS ENGINEERS. VS WNL. RIGHT WRIST STABLE WITH TR BAND INTACT. WILL MONITOR.
--- NOTE | 2019-02-04 15:34 | NUR ---
TR BAND DCD WITHOUT BLEEDING OR HEMATOMA NOTED. WILL MONITOR.
[2019-02-05 00:30] VITALS: BP 132/62
--- NOTE | 2019-02-05 00:44 | NUR ---
I have reviewed this patient and I concur with the Shift Assessment completed by the Licensed Practical Nurse today this shift.
[2019-02-05 04:00] VITALS: BP 134/60
--- NOTE | 2019-02-05 07:06 | NUR ---
REPORT RECEIVED. WILL CONTINUE WITH POC. PT CURRENTLY LYING SEMI FOWLERS. CALL LIGHT W/I REACH. PT IS AAO AND UP WITH ASSIST. RR EVEN AND UNLABORED ON 8L HIGH FLOW NC. NS INFUSING @KVO VIA L.WRIST PIV. PT HAS FREQUENT PRODUCTIVE COUGH WITH WHITE/YELLOW SPUTUM. PT DENIES ANY NEEDS AT THIS TIME. FALL PRECAUTIONS IN PLACE. NO S/S OF DISTRESS NOTED. WILL CTM.
[2019-02-05 07:21] LABS: BASOPHILS 0 % (0-2); EOSINOPHILS 0.3 % (0-7); HEMATOCRIT 33.5 % (36.0-48.0); HEMOGLOBIN 10.4 g/dL (12-16); IMMATURE GRANULOCYTES 0.2 % (0-5); LYMPHOCYTES 23.2 % (15-50); MCH 22.5 pg (26.0-34.0); MCV 72.4 fL (80.0-100.0); MEAN PLATELET VOLUME 11.2 fL (7.4-10.4); MONOCYTES 7.1 % (2-11); NEUTROPHILS 69.2 % (40-80); PLATELET COUNT 259 10x3/uL (130-400); RBC 4.63 10x6/uL (4.00-5.40); RDW 21.8 % (11.5-14.5); WBC 12.1 10x3/uL (4.8-10.8)
[2019-02-05 07:25] LABS: INR 1.22 (0.85-1.17); PROTIME 14.8 SECONDS (11.6-15.0)
[2019-02-05 07:35] LABS: CALCIUM 8.4 mg/dL (8.5-10.1); CARBON DIOXIDE 28.7 mmol/L (21.0-32.0); CREATININE - SERUM 1.1 mg/dL (0.6-1.3)
[2019-02-05 07:36] LABS: POTASSIUM - SERUM 3.7 mmol/L (3.5-5.1)
[2019-02-05 08:27] VITALS: BP 116/82
[2019-02-05 11:51] VITALS: BP 121/83
--- NOTE | 2019-02-05 14:49 | MORECARE ---
CASE MANAGEMENT DISCHARGE SUMMARY PATIENT: RL SIU UNIT: [id number] ADM DATE: 02/01/19 AGE: 83 : 35 SEX: F ROOM/BED: D.2778 AUTHOR: MARIA ISABEL KAY PHYSICIAN: REFERRING PHYSICIAN: VIVIANE TORRES DO DATE OF SERVICE: 02/05/19 Discharge Plan Patient Name: RL SIU Facility: [facility]:[place] : 1935 Planned Disposition: Inpatient Rehab Anticipated Discharge Date: Discharge Date: Expected LOS: Initial Reviewer: [id number] Initial Review Date: 02/04/2019 Generated: 02/05/19 3:49 pm Comments DCP- Discharge Planning Updated by [email or web address]: Merna López on 02/04/19 8:[address] Patient Name: RL SIU Admission Status: ER Accout number: [id number] Admission Date: 02-01-2019 : 1935 Admission Diagnosis:HEART FAILURE, UNSPECIFIED Attending: VIVIANE TORRES Current LOS: 3 Anticipated DC Date: Planned Disposition: Primary Insurance: MEDICARE A & B Discharge Planning Comments: CM MET WITH PATIENT ABOUT DC PLANNING/NEEDS. STATES LIVES WITH HER SON AND IS INDEPENDANT AT HOME. PT AT BEDSIDE NOW. I DISCUSSED HH, SNF, AND IPRH WITH HER. SHE IS NOT INTERESTED RIGHT NOW BUT SHE LOOKS LIKE SHE COULD BENEFIT FROM IT. I NOTICED SHE WAS VERY WEAK AND SOB. CM TO FOLLOW AND ASSIST NEEDED. [employer] Supervisor: Merna López DCPIA - Discharge Planning Initial Assessment Updated by [email or web address]: Merna López on 02/04/19 9:52 am * Is the patient Alert and Oriented? Yes * PCP IN [place] * Pharmacy [facility] * Preadmission Environment Home with Family * ADLs Independent * Equipment Cane Nebulizer Oxygen * Other Equipment NOT SURE IT MAY BE A TRILOGY. * List name and contact numbers for known caregivers / representatives who currently or will assist patient after discharge: EKATERINA ANDRES, * Community resources currently utilized None * Additional services required to return to the preadmission environment? Yes * Can the patient safely return to the preadmission environment? Yes * Has this patient been hospitalized within the prior 30 days at any hospital? No Last DP export: 02/04/19 8:57 am Patient Name: RL SIU Page 56588 at 1449 All edits/amendments must be made on the electronic document DICTATION DATE: 02/05/191448 ENGINEERING DRAWINGS CHECKER: DIANELYS 02/05/191448 RPT#: [id number] DC DATE: STATUS: ADM IN [facility] [address] [place] [address] END OF REPORT
--- NOTE | 2019-02-05 14:51 | NUR ---
PT STATES,"IF MY SON TRIES TO SEND ME TO A ASSISTED I WILL TAKE OFF MY OXYGEN AND SUFFOCATE MYSELF. THEY DONT FEED ME AND NEGLECT ME. I WONT DO IT." INFORMED LORA WITH CASE MANAGEMENT WHO HAD LONG DISCUSSION WITH THE GRANDAUGHTERS ABOUT GETTING APS INVOLVED. WILL CTM.
--- NOTE | 2019-02-05 15:11 | MORECARE ---
CASE MANAGEMENT DISCHARGE SUMMARY PATIENT: RL SIU UNIT: [id number] ADM DATE: 02/01/19 AGE: 83 : 35 SEX: F ROOM/BED: D.2944 AUTHOR: ELIZA,DOC PHYSICIAN: REFERRING PHYSICIAN: VIVIANE TORRES DO DATE OF SERVICE: 02/05/19 Discharge Plan Patient Name: RL SIU Facility: [facility]:[place] : 1935 Planned Disposition: Inpatient Rehab Anticipated Discharge Date: Discharge Date: Expected LOS: Initial Reviewer: [id number] Initial Review Date: 02/04/2019 Generated: 02/05/19 4:11 pm Comments DCP- Discharge Planning Updated by [id number]: Clint Curry on 02/05/19 2:[address] Patient Name: RL SIU Encounter No: [id number] : 1935 Primary Insurance: MEDICARE A & B Anticipated DC Date: Planned Disposition: Inpatient Rehab External Planned Provider: [facility] DCP follow-up note: CM RECEIVED REQUEST FROM FAMILY MEMBER TO SPEAK TO THEM. CM SPOKE TO PT'S GRANDDAUGHTER, CRISTO SIU, , OUTSIDE PT'S ROOM SHE DID NOT WANT TO TALK IN FRONT OF PT. CRISTO REPORTS SHE DOES NOT THINK PT SHOULD RETURN TO HER LIVING SITUATION WITH SABINE FATHER, PT'S SON. PT LIVES WITH DMITRY SIU, PT'S SON. PT HAS TOLD CRISTO THAT PT IS AFRAID OF HER SON, HAS TO HIDE FOOD IN THE ROOM TO HAVE FOOD TO EAT AND IS AFRAID OF HER SON. CRISTO REPORTS CALLING ADULT PROTECTIVE SERVICES MULTIPLE TIMES AND NOTHING IS DONE ABOUT IT. CRISTO REPORTS THAT DMITRY CAME UP TO THE HOSPITAL AND TOOK ALL OF PT'S PERSONAL BELONGINGS OUT OF PT'S ROOM. CM REVIEWED CHART AND CALLED ADULT PROTECTIVE SERVICES [phone], PROVIDED INFORMATION GIVEN TO CM BY PT'S GRANDDAUGHTER. REPORT TAKEN, CASE #[id number]. CM PROVIDED REFERENCE NUMBER TO GRANDDAUGHTER. PT'S GRANDDAUGHTER REPORTS PLAN CONTINUES TO BE FOR INPATIENT REHAB. CM SPOKE TO DR. YING WHO INFORMED CM THAT PT WILL NEED REHAB SERVICES. CM SPOKE TO PT AND FAMILY IN ROOM; PT REPORTS SHE WILL CONSIDER REHAB. PT'S GRANDDAUGHTER STATES THEY DO WANT REHAB AT [place]. PT REPORTS THAT SHE DOES NOT WANT TO GO TO A PENITENTIARY FACILITY. CM RECEIVED INPATIENT REHAB PRESCREENING ORDER. CM WAITING INPATIENT REHAB PRESCREENING BY [facility] INPATIENT REHAB. Clint Curry, CASE MANAGEMENT DCP- Discharge Planning Updated by [id number]: Merna López on 02/04/19 8:[address] Patient Name: RL SIU Admission Status: ER Accout number: [id number] Admission Date: 02-01-2019 : 1935 Admission Diagnosis:HEART FAILURE, UNSPECIFIED Attending: VIVIANE TORRES Current LOS: 3 Anticipated DC Date: Planned Disposition: Primary Insurance: MEDICARE A & B Discharge Planning Comments: CM MET WITH PATIENT ABOUT DC PLANNING/NEEDS. STATES LIVES WITH HER SON AND IS INDEPENDANT AT HOME. PT AT BEDSIDE NOW. I DISCUSSED HH, SNF, AND IPRH WITH HER. SHE IS NOT INTERESTED RIGHT NOW BUT SHE LOOKS LIKE SHE COULD BENEFIT FROM IT. I NOTICED SHE WAS VERY WEAK AND SOB. CM TO FOLLOW AND ASSIST NEEDED. Continuing Education Dean: Merna Maribel DCPIA - Discharge Planning Initial Assessment Updated by [email or web address]: Merna López on 02/04/19 9:52 am * Is the patient Alert and Oriented? Yes * PCP DR HARESH RAMIREZ * Pharmacy [facility] * Preadmission Environment Home with Family * ADLs Independent * Equipment Cane Nebulizer Oxygen * Other Equipment NOT SURE IT MAY BE A TRILOGY. * List name and contact numbers for known caregivers / representatives who currently or will assist patient after discharge: DMITRY, SON, * Community resources currently utilized None * Additional services required to return to the preadmission environment? Yes * Can the patient safely return to the preadmission environment? Yes * Has this patient been hospitalized within the prior 30 days at any hospital? No Last DP export: 02/05/19 1:49 pm Patient Name: RL SIU Page 32092 at 1511 All edits/amendments must be made on the electronic document DICTATION DATE: 02/05/19 1510 DIE MAKER STAMPING: DIANELYS 02/05/190 RPT#: [id number] DC DATE: STATUS: ADM IN [facility] [address] [place] [address] END OF REPORT
[2019-02-05 15:55] VITALS: BP 151/61
--- NOTE | 2019-02-05 19:05 | NUR ---
AROUSES EASILY AT THIS TIME BED IA LOW AND LOCKED KEVIN ALARM IS IN PLACE CALL LIGHT IS IN REACH. O2 IN PLACE AT 8 L HF RESP APPEAR UNLABORED AT THIS TIME SKIN IS WARM AND DRY LUNGS WITH A FEW FINE CRACKLES BOWEL SOUNDS TIMES 4
[2019-02-05 20:00] VITALS: BP 121/64
[2019-02-06] VITALS: BP 144/77
--- NOTE | 2019-02-06 01:43 | NUR ---
I have reviewed this patient and I concur with the Shift Assessment completed by the Licensed Practical Nurse today this shift.
[2019-02-06 04:00] VITALS: BP 140/59
[2019-02-06 07:06] LABS: ANION GAP 8.1 mmol/L (8-16); CALCIUM 7.9 mg/dL (8.5-10.1); CARBON DIOXIDE 31.3 mmol/L (21.0-32.0); CREATININE - SERUM 0.9 mg/dL (0.6-1.3); POTASSIUM - SERUM 3.4 mmol/L (3.5-5.1)
[2019-02-06 07:16] LABS: INR 1.21 (0.85-1.17); PROTIME 14.8 SECONDS (11.6-15.0)
[2019-02-06 07:24] LABS: BASOPHILS 0.1 % (0-2); EOSINOPHILS 3.4 % (0-7); HEMATOCRIT 34.2 % (36.0-48.0); HEMOGLOBIN 10.5 g/dL (12-16); IMMATURE GRANULOCYTES 0.2 % (0-5); LYMPHOCYTES 24.2 % (15-50); MCH 22.3 pg (26.0-34.0); MCHC 30.7 g/dL (31.0-37.0); MCV 72.8 fL (80.0-100.0); MONOCYTES 6.8 % (2-11); NEUTROPHILS 65.3 % (40-80); PLATELET COUNT 260 10x3/uL (130-400); RDW 22.6 % (11.5-14.5); WBC 10.9 10x3/uL (4.8-10.8)
--- NOTE | 2019-02-06 07:53 | NUR ---
REPORT RECEIVED. WILL CONTINUE WITH POC. PT CURRENTLY LYING SEMI FOWLERS. CALL LIGHT W/I REACH. PT IS AAO AND UP WITH ASSIST. RR EVEN AND UNLABORED ON 8L HIGH FLOW NC. L.WRIST PIV IS SALINE LOCKED. PT DENIES ANY NEEDS AT THIS TIME. WILL CTM.
[2019-02-06 08:38] VITALS: BP 128/64
--- NOTE | 2019-02-06 09:52 | NUR ---
Nutrition follow-up: Diert: low sodium PO intake ~50% of meals Labs reviewed Wt: 89# Ensure TID Will encourage increased po intake RDN following
[2019-02-06 11:30] VITALS: BP 124/75
--- NOTE | 2019-02-06 11:48 | NUR ---
Rehab Note- Acute Inpatient REhab prescreen order received. The patient medical chart reviewed- appears to be an approiate acute inpatient rehab candidate when medically stable- curretnly on 11L/High Flow NC, will need to be weaned down prior to an acute inpatient rehab stay. Will follow at this time. Thank you for this referral! Shannon Cole RN CLinical Liaison, [facility] Rehab
[2019-02-06 14:48] VITALS: BP 131/68
--- NOTE | 2019-02-06 15:24 | NUR ---
PT CURRENTLY RESTING ON LEFT SIDE. CALL LIGHT W/I REACH. RR EVEN AND UNLABORED ON 8L HIGH FLOW NC. L.WRIST PIV IS SALINE LOCKED. NO S/S OF DISTRESS NOTED. WILL CTM.
--- NOTE | 2019-02-06 19:41 | NUR ---
RESUMING PATIENT CARE. PATIENT IS ALERT AND ORIENTED, RESTING COMFORTABLY IN BED. RESPIRATIONS ARE EVEN AND UNLABORED. NO S/S OF DISTRESS. NO C/O PAIN. CALL LIGHT WITHIN REACH. WILL CPOC.
[2019-02-06 20:00] VITALS: BP 124/63
--- NOTE | 2019-02-06 23:46 | NUR ---
PATIENT RESTING COMFORTABLY IN BED. RESPIRATIONS ARE EVEN AND UNLABORED. NO S/S OF DISTRESS. NO C/O PAIN. CALL LIGHT WITHIN REACH. WILL CPOC.
[2019-02-07] VITALS: BP 152/68
[2019-02-07 04:00] VITALS: BP 143/62
[2019-02-07 06:06] LABS: BASOPHILS 0.1 % (0-2); EOSINOPHILS 4.2 % (0-7); HEMATOCRIT 36.6 % (36.0-48.0); HEMOGLOBIN 11.4 g/dL (12-16); IMMATURE GRANULOCYTES 0.3 % (0-5); LYMPHOCYTES 20.3 % (15-50); MCH 22.5 pg (26.0-34.0); MCHC 31.1 g/dL (31.0-37.0); MCV 72.3 fL (80.0-100.0); MONOCYTES 5.6 % (2-11); NEUTROPHILS 69.5 % (40-80); PLATELET COUNT 261 10x3/uL (130-400); RBC 5.06 10x6/uL (4.00-5.40); RDW 23.3 % (11.5-14.5); WBC 13.2 10x3/uL (4.8-10.8)
[2019-02-07 06:36] LABS: ANION GAP 9.7 mmol/L (8-16); CALCIUM 8.2 mg/dL (8.5-10.1); CREATININE - SERUM 0.9 mg/dL (0.6-1.3); MAGNESIUM - SERUM 1.9 mg/dL (1.8-2.4); PHOSPHOROUS 3.9 mg/dL (2.5-4.9); POTASSIUM - SERUM 3.7 mmol/L (3.5-5.1)
[2019-02-07 09:32] VITALS: BP 135/54
[2019-02-07 11:00] VITALS: BP 99/54
--- NOTE | 2019-02-07 12:18 | NUR ---
RESP UL ON 02 6L HIGHFLOW. TELEMETRY SB 58. CALL LIGHT IN REACH. WILL CONT. PLAN OF CARE.
[2019-02-07 15:00] VITALS: BP 112/86
--- NOTE | 2019-02-07 20:21 | NUR ---
INITIAL ROUNDS COMPLETED AT 1910 HRS. PT DENIED ANY DISCOMFORT. RT TX IN PROGRESS. ASSESSMENT COMPLETED AT 1930 HRS. SR PER CM HR 78. O2 6L HIGH FLOW. SOB WITH EXERTION. LUNGS DIMINISHED IN BASES BILAT. IBRAHIM. R WRIST CLEAN, DRY AND INTACT. ACTIVE BOWEL SOUNDS NOTED. BUTTOCKS SLIGHTLY RED. PT REFUSES SCD'S AT THIS TIME. IV TO L WRIST SL. ASSISTED PT TO BR. PT SLIGHTLY UNSTEADY ON FEET. PT HAD MODERATE AMOUNT OF FORMED BROWN STOOL. ASSISTED BACK TO BED. PT SOB WITH EXERTIN. CHURCH DRAINING YELOW URINE. SR UP X2, CALL LIGHT WITHIN REACH.
[2019-02-07 20:30] VITALS: BP 140/53
--- NOTE | 2019-02-07 21:36 | NUR ---
PM MEDS GIVEN. PT DENIES ANY DISCOMFORT. CALL LIGHT WITHIN REACH.
--- NOTE | 2019-02-07 23:46 | NUR ---
PT RESTING WITH EYES CLOSED. RESP EVEN AND REGULAR. SR UP X2, CALL LIGHT WITHIN REACH.
--- NOTE | 2019-02-08 01:48 | NUR ---
PT RESTING WITH EYES CLOSED. RESP EVEN AND REGULAR. SR UP X2, CALL LIGHT WITHIN REACH.
--- NOTE | 2019-02-08 04:06 | NUR ---
PT RESTING WITH EYES CLOSED. RESP EVEN AND REGULAR. SR UP X2, CALL LIGHT WITHIN REACH.
[2019-02-08 04:30] VITALS: BP 138/49
[2019-02-08 05:15] LABS: BASOPHILS 0.2 % (0-2); EOSINOPHILS 3.9 % (0-7); HEMATOCRIT 33.9 % (36.0-48.0); HEMOGLOBIN 10.8 g/dL (12-16); IMMATURE GRANULOCYTES 0.3 % (0-5); LYMPHOCYTES 19.4 % (15-50); MCH 23.1 pg (26.0-34.0); MCHC 31.9 g/dL (31.0-37.0); MCV 72.6 fL (80.0-100.0); MONOCYTES 5.3 % (2-11); NEUTROPHILS 70.9 % (40-80); PLATELET COUNT 226 10x3/uL (130-400); RBC 4.67 10x6/uL (4.00-5.40); RDW 23.8 % (11.5-14.5); WBC 11.5 10x3/uL (4.8-10.8)
[2019-02-08 05:19] LABS: ANION GAP 7.8 mmol/L (8-16); CALCIUM 8.1 mg/dL (8.5-10.1); CARBON DIOXIDE 31.8 mmol/L (21.0-32.0); CREATININE - SERUM 0.8 mg/dL (0.6-1.3); POTASSIUM - SERUM 3.6 mmol/L (3.5-5.1)
--- NOTE | 2019-02-08 06:59 | NUR ---
VSS THROUGHOUT NIGHT. SR PER CM. PT RESTED WELL DURING SHIFT. NEEDS MET; WILL CONTINUE TO MONITOR.
--- NOTE | 2019-02-08 07:00 | NUR ---
RECEIVED REPORT. SHE IS ALERT AND ORIENT. ABLE TO VOICE NEEDS, DENIES ANY CURRENT ONES. HIGHLOW O2 ON AT 6/L. RESP EVEN WITHOUT LABOR WHILE LAYING IN BED. SL IN LEFT WRIST. CL IN REACH
[2019-02-08 07:41] VITALS: BP 132/35
--- NOTE | 2019-02-08 10:10 | NUR ---
UP AMBULATING WITH ROLLING WALKER, PORTABLE O2 AND THERAPY EVELINA WELL
--- NOTE | 2019-02-08 10:45 | NUR ---
DR JOSEPH ROUNDING HIGH FLOW O2 DOWN TO 4L TO SEE IF CAN SAT AT LEAST 90% OR ABOVE, SHE HAS OXYGEN AT HOME. SHE AGREES WITH THIS ALSO.
[2019-02-08 11:38] VITALS: BP 146/47
--- NOTE | 2019-02-08 14:07 | NUR ---
REVIEW OF CAREPLAN COMPLETED AND SAFETY PRECAUTIONS IN PLACE. NO C/O AT THIS TIEM. O2 SAT IS 91% ON 4L HIGHFLOW
[2019-02-08 16:12] VITALS: BP 136/49
[2019-02-08 20:00] VITALS: BP 135/52
--- NOTE | 2019-02-08 23:00 | NUR ---
INITAIL ROUNDS COMPLETED AT 1915 HRS. RT TX IN PROGRESS. ASSESSMENT COMPLETED AT 1999 HRS. VSS. SR PER CM HR 71. O2 4L HIGH FLOW. ALERT AND ORIENTED TO PERSON, PLACE AND TIME. IBRAHIM. LUNGS DIMINISHED IN BASES BILAT. IV TO LDFA WITH IV AB INFUSING. BRUISES NOTED TO BILAT ARMS. DRESSING TO R WRIST CLEAN, DRY AND INTACT. COCCYX SLIGHTLY RED. CHURCH DRAINING YELLOW URINE. PT VERY SOB WITH EXERTION. PM MEDS GIVEN. PT CURRENTLY RESTING WITH EYES CLOSED. RESP EVEN AND REGULAR. SR UP X2, CALL LIGHT WITHIN REACH.
[2019-02-09] VITALS: BP 119/62
--- NOTE | 2019-02-09 00:36 | NUR ---
PT RESTING WITH EYES CLOSED. RESP EVEN AND REGULAR. SR UP X2,CALL LIGHT WITHIN REACH.
--- NOTE | 2019-02-09 02:06 | NUR ---
PT RESTING WITH EYES CLOSED. RESP EVEN AND REGULAR. SR UP X2, CALL LIGHT WITHIN REACH.
[2019-02-09 04:30] VITALS: BP 140/50
--- NOTE | 2019-02-09 04:36 | NUR ---
PT AWAKE; DENIES ANY DISCOMFORT. CALL LIGHT WITHIN REACH.
[2019-02-09 05:27] LABS: BASOPHILS 0.2 % (0-2); HEMATOCRIT 33.1 % (36.0-48.0); HEMOGLOBIN 10.1 g/dL (12-16); IMMATURE GRANULOCYTES 0.2 % (0-5); LYMPHOCYTES 19.7 % (15-50); MCH 22.6 pg (26.0-34.0); MCHC 30.5 g/dL (31.0-37.0); MCV 74.2 fL (80.0-100.0); MONOCYTES 4.2 % (2-11); NEUTROPHILS 72.7 % (40-80); PLATELET COUNT 236 10x3/uL (130-400); RBC 4.46 10x6/uL (4.00-5.40); RDW 24.6 % (11.5-14.5); WBC 11.3 10x3/uL (4.8-10.8)
[2019-02-09 05:32] LABS: ANION GAP 6.9 mmol/L (8-16); CALCIUM 8.1 mg/dL (8.5-10.1); CARBON DIOXIDE 31.8 mmol/L (21.0-32.0); CREATININE - SERUM 0.9 mg/dL (0.6-1.3); POTASSIUM - SERUM 3.7 mmol/L (3.5-5.1)
--- NOTE | 2019-02-09 06:28 | NUR ---
VSS THROUGHOUT NIGHT. SR PER CM. PT DENIED ANY DISCOMFORT. AM BATH DONE, BED LINENS CHANGED. CHURCH CARE DONE. NEEDS MET; WILL CONTINUE TO MONITOR.
--- NOTE | 2019-02-09 07:05 | NUR ---
REPORT RECEIVED. SITTING IN BED WITH O2 ON. RESP EVEN WITHOUT LABOR AT THIS TIME. SHE GETS SHORT OF BREATH WITH ANY EXERTION. ALERT ABLE TO VOICE NEEDS. DENIES ANY AT THIS TIME. SALINE LOCK INTACT.
--- NOTE | 2019-02-09 08:42 | MORECARE ---
CASE MANAGEMENT DISCHARGE SUMMARY PATIENT: RL SIU UNIT: [id number] ADM DATE: 02/01/19 AGE: 83 : 35 SEX: F ROOM/BED: D.6065 AUTHOR: ELIZADOC PHYSICIAN: REFERRING PHYSICIAN: VIVIANE TORRES DO DATE OF SERVICE: 02/09/19 Discharge Plan Patient Name: RL SUI Facility: [facility]:[place] : 1935 Planned Disposition: Inpatient Rehab Anticipated Discharge Date: Discharge Date: Expected LOS: Initial Reviewer: [id number] Initial Review Date: 02/04/2019 Generated: 02/09/19 9:42 am DCP- Discharge Planning Updated by [email or web address]: Clint Curry on 02/05/19 2:[address] Patient Name: RL SIU Encounter No: [id number] : 1935 Primary Insurance: MEDICARE A & B Anticipated DC Date: Planned Disposition: Inpatient Rehab External Planned Provider: [facility] DCP follow-up note: CM RECEIVED REQUEST FROM FAMILY MEMBER TO SPEAK TO THEM. CM SPOKE TO PT'S GRANDDAUGHTER, CRISTO SIU, , OUTSIDE PT'S ROOM SHE DID NOT WANT TO TALK IN FRONT OF PT. CRISTO REPORTS SHE DOES NOT THINK PT SHOULD RETURN TO HER LIVING SITUATION WITH SABINE FATHER, PT'S SON. PT LIVES WITH DMITRY SIU, PT'S SON. PT HAS TOLD CRISTO THAT PT IS AFRAID OF HER SON, HAS TO HIDE FOOD IN THE ROOM TO HAVE FOOD TO EAT AND IS AFRAID OF HER SON. CRISTO REPORTS CALLING ADULT PROTECTIVE SERVICES MULTIPLE TIMES AND NOTHING IS DONE ABOUT IT. CRISTO REPORTS THAT DMITRY CAME UP TO THE HOSPITAL AND TOOK ALL OF PT'S PERSONAL BELONGINGS OUT OF PT'S ROOM. CM REVIEWED CHART AND CALLED ADULT PROTECTIVE SERVICES [phone], PROVIDED INFORMATION GIVEN TO CM BY PT'S GRANDDAUGHTER. REPORT TAKEN, CASE #[id number]. CM PROVIDED REFERENCE NUMBER TO GRANDDAUGHTER. PT'S GRANDDAUGHTER REPORTS PLAN CONTINUES TO BE FOR INPATIENT REHAB. CM SPOKE TO DR. YING WHO INFORMED CM THAT PT WILL NEED REHAB SERVICES. CM SPOKE TO PT AND FAMILY IN ROOM; PT REPORTS SHE WILL CONSIDER REHAB. PT'S GRANDDAUGHTER STATES THEY DO WANT REHAB AT [place]. PT REPORTS THAT SHE DOES NOT WANT TO GO TO A [facility] FACILITY. CM RECEIVED INPATIENT REHAB PRESCREENING ORDER. CM WAITING INPATIENT REHAB PRESCREENING BY [facility] INPATIENT REH[facility]. Clint Curry, CASE MANAGEMENT DCP- Discharge Planning Updated by [id number]: Merna López on 02/04/19 8:[address] Patient Name: RL SIU Admission Status: ER Accout number: [id number] Admission Date: 02-01-2019 : 1935 Admission Diagnosis:HEART FAILURE, UNSPECIFIED Attending: VIVIANE TORRES Current LOS: 3 Anticipated DC Date: Planned Disposition: Primary Insurance: MEDICARE A & B Discharge Planning Comments: CM MET WITH PATIENT ABOUT DC PLANNING/NEEDS. STATES LIVES WITH HER SON AND IS INDEPENDANT AT HOME. PT AT BEDSIDE NOW. I DISCUSSED HH, SNF, AND IPRH WITH HER. SHE IS NOT INTERESTED RIGHT NOW BUT SHE LOOKS LIKE SHE COULD BENEFIT FROM IT. I NOTICED SHE WAS VERY WEAK AND SOB. CM TO FOLLOW AND ASSIST NEEDED. Soil Sampler: Merna López DCPIA - Discharge Planning Initial Assessment Updated by [email or web address]: Merna López on 02/04/19 9:52 am * Is the patient Alert and Oriented? Yes * PCP DR HARESH RAMIREZ * Pharmacy [facility] * Preadmission Environment Home with Family * ADLs Independent * Equipment Cane Nebulizer Oxygen * Other Equipment NOT SURE IT MAY BE A TRILOGY. * List name and contact numbers for known caregivers / representatives who currently or will assist patient after discharge: DMITRY, SON, * Community resources currently utilized None * Additional services required to return to the preadmission environment? Yes * Can the patient safely return to the preadmission environment? Yes * Has this patient been hospitalized within the prior 30 days at any hospital? No Last DP export: 02/05/19 2:11 pm Patient Name: RL SIU Page 71298 at 0842 All edits/amendments must be made on the electronic document DICTATION DATE: 07/08/19 0842 MOUNTER AUTOMATIC: DIANELYS 02/09/1942 RPT#: [id number] DC DATE: STATUS: ADM IN [facility] [address] [place] [address] END OF REPORT
[2019-02-09 09:44] VITALS: BP 109/55
--- NOTE | 2019-02-09 10:45 | NUR ---
SHE HAS BEEN WALKED BY PT. HOYT WELL SHE IS NOW SITTING UP IN CHAIR IN HER ROOM. O2 ON DENIES ANY NEEDS. SHORTNESS OF BREATH WITH EXER.
[2019-02-09 12:37] VITALS: BP 142/40
--- NOTE | 2019-02-09 12:47 | NUR ---
OT NOTE: PERFORMED WELL TODAY. AMB TO BATHROOM WITH MIN ASSIST X 2; TOILET TRANSFER WITH MIN ASSIST; HYGIENE WITH SET UP; AMBULATION WITH WALKER, GAIT BELT, 02,CATHETER, AND MIN ASSIST. TRANSFERRED TO CHAIR WITH MIN ASSIST; UE STRENGTHENING EXS WHILE UP IN CHAIR. DELORES MA, OTR/L
--- NOTE | 2019-02-09 14:57 | NUR ---
SITTING IN BED WATCHING TV ALERT DENIES ANY NEEDS NO CHANGES NOTED
--- NOTE | 2019-02-09 15:43 | MORECARE ---
CASE MANAGEMENT DISCHARGE SUMMARY PATIENT: RL SIU UNIT: [id number] ADM DATE: 02/01/19 AGE: 83 : 35 SEX: F ROOM/BED: D.7518 AUTHOR: ELIZADOC PHYSICIAN: REFERRING PHYSICIAN: VIVIANE TORRES DO DATE OF SERVICE: 02/09/19 Discharge Plan Patient Name: RL SIU Facility: [facility]:[place] : 1935 Planned Disposition: Inpatient Rehab Anticipated Discharge Date: 02/09/19 Discharge Date: Expected LOS: 8 Initial Reviewer: [email or web address] Initial Review Date: 02/04/2019 Generated: 02/09/19 4:43 pm DCP- Discharge Planning Updated by [email or web address]: Clint Curry on 02/05/19 2:[address] Patient Name: RL SIU Encounter No: [id number] : 1935 Primary Insurance: MEDICARE A & B Anticipated DC Date: Planned Disposition: Inpatient Rehab External Planned Provider: [facility] DCP follow-up note: CM RECEIVED REQUEST FROM FAMILY MEMBER TO SPEAK TO THEM. CM SPOKE TO PT'S GRANDDAUGHTER, CRISTO SIU, , OUTSIDE PT'S ROOM SHE DID NOT WANT TO TALK IN FRONT OF PT. CRISTO REPORTS SHE DOES NOT THINK PT SHOULD RETURN TO HER LIVING SITUATION WITH SABINE FATHER, PT'S SON. PT LIVES WITH DMITRY SIU, PT'S SON. PT HAS TOLD CRISTO THAT PT IS AFRAID OF HER SON, HAS TO HIDE FOOD IN THE ROOM TO HAVE FOOD TO EAT AND IS AFRAID OF HER SON. CRISTO REPORTS CALLING ADULT PROTECTIVE SERVICES MULTIPLE TIMES AND NOTHING IS DONE ABOUT IT. CRITSO REPORTS THAT DMITRY CAME UP TO THE HOSPITAL AND TOOK ALL OF PT'S PERSONAL BELONGINGS OUT OF PT'S ROOM. CM REVIEWED CHART AND CALLED ADULT PROTECTIVE SERVICES [phone], PROVIDED INFORMATION GIVEN TO CM BY PT'S GRANDDAUGHTER. REPORT TAKEN, CASE #[id number]. CM PROVIDED REFERENCE NUMBER TO GRANDDAUGHTER. PT'S GRANDDAUGHTER REPORTS PLAN CONTINUES TO BE FOR INPATIENT REHAB. CM SPOKE TO DR. YING WHO INFORMED CM THAT PT WILL NEED REHAB SERVICES. CM SPOKE TO PT AND FAMILY IN ROOM; PT REPORTS SHE WILL CONSIDER REHAB. PT'S GRANDDAUGHTER STATES THEY DO WANT REHAB AT [place]. PT REPORTS THAT SHE DOES NOT WANT TO GO TO A ASSISTED FACILITY. CM RECEIVED INPATIENT REHAB PRESCREENING ORDER. CM WAITING INPATIENT REHAB PRESCREENING BY [facility] INPATIENT REH[facility]. Clint Curry, CASE MANAGEMENT DCP- Discharge Planning Updated by [id number]: Merna López on 02/04/19 8:[address] Patient Name: RL SIU Admission Status: ER Accout number: [id number] Admission Date: 02-01-2019 : 1935 Admission Diagnosis:HEART FAILURE, UNSPECIFIED Attending: VIVIANE TORRES Current LOS: 3 Anticipated DC Date: Planned Disposition: Primary Insurance: MEDICARE A & B Discharge Planning Comments: CM MET WITH PATIENT ABOUT DC PLANNING/NEEDS. STATES LIVES WITH HER SON AND IS INDEPENDANT AT HOME. PT AT BEDSIDE NOW. I DISCUSSED HH, SNF, AND IPRH WITH HER. SHE IS NOT INTERESTED RIGHT NOW BUT SHE LOOKS LIKE SHE COULD BENEFIT FROM IT. I NOTICED SHE WAS VERY WEAK AND SOB. CM TO FOLLOW AND ASSIST NEEDED. Cold Type Artist: Merna Maribel DCPIA - Discharge Planning Initial Assessment Updated by [email or web address]: Merna óLpez on 02/04/19 9:52 am * Is the patient Alert and Oriented? Yes * PCP DR HARESH RAMRIEZ * Pharmacy [facility] * Preadmission Environment Home with Family * ADLs Independent * Equipment Cane Nebulizer Oxygen * Other Equipment NOT SURE IT MAY BE A TRILOGY. * List name and contact numbers for known caregivers / representatives who currently or will assist patient after discharge: EKATERINA ANDRES, * Community resources currently utilized None * Additional services required to return to the preadmission environment? Yes * Can the patient safely return to the preadmission environment? Yes * Has this patient been hospitalized within the prior 30 days at any hospital? No Coverage Notice Reviewer: [id number] - Clint Curry Notice Issued Date-Time: 02/09/2019 15:40 Notice Type: IM Discharge Notice Notice Delivered To: Patient Relationship to Patient: [employer] Operator Name: Delivery Method: HAND - Hand Delivered Samra Days: Prior Verbal Notification: Recipient Understood Notice: Yes Recipient Signature: Yes Med Rec Note Co-signed by Attending: Coverage Notice Comment: Last DP export: 02/09/19 7:42 am Patient Name: RL SIU Page 14558 at 1543 All edits/amendments must be made on the electronic document DICTATION DATE: 02/09/191542 INSECT CONTROL AIDE: DIANELYS 02/09/19 154 RPT#: [id number] DC DATE: STATUS: ADM IN [facility] [address] [place] [address] END OF REPORT
--- NOTE | 2019-02-09 15:54 | MORECARE ---
CASE MANAGEMENT DISCHARGE SUMMARY PATIENT: RL SIU UNIT: [id number] ADM DATE: 02/01/19 AGE: 83 : 35 SEX: F ROOM/BED: D.6167 AUTHOR: ELIZA,DOC PHYSICIAN: REFERRING PHYSICIAN: VIVIANE TORRES DO DATE OF SERVICE: 02/09/19 Discharge Plan Patient Name: RL SIU [facility] [facility] 1935 Planned Disposition: Inpatient Rehab Anticipated Discharge Date: 02/09/19 Discharge Date: Expected LOS: 8 Initial Reviewer: [id number] Initial Review Date: 02/04/2019 Generated: 02/09/19 4:54 pm Comments DCP- Discharge Planning Updated by [email or web address]: Clint Curry on 02/09/19 2:[address] Patient Name: RL SIU Encounter No: [id number] : 1935 Primary Insurance: MEDICARE A & B Anticipated DC Date: 02-09-2019 Planned Disposition: Inpatient Rehab External Planned Provider: [facility] INPATIENT REHAB DCP follow-up note: CM SPOKE TO AMEENA OF ADULT PROTECTIVE SERVICES OUT OF [facility], SHE WILL MEET WITH PT TODAY. THERE IS NO HOLD AT THIS TIME BY ADULT PROTECTIVE SERVICES. CM SPOKE TO MEL OF INPATIENT REHAB, THEY PLAN TO ACCEPT PT TODAY FOR REHAB IF STABLE FOR DISCHARGE. CM SPOKE TO DR. DELACRUZ AND PATO CARRASQUILLO, THEY PLAN TO DISCHARGE PT TO REHAB TODAY. PT NOTIFIED, IN AGREEMENT WITH DISCHARGE TO INPATIENT REHAB TODAY. IMPORTANT MESSAGE FROM MEDICARE PROVIDED AND EXPLAINED. PT ASKED WHO CALLED ADULT PROTECTIVE SERVICES, CM ADVISED THAT CM CALLED DUE TO BEING TOLD PT IS AFRAID OF HER SON. PT STATES SHE IS NOT AFRAID OF HER SON AND HE DOES NOT KEEP FOOD FROM HER AT HOME. PT REPORTS SHE GETS PLENTY TO EAT. PT REPORTS PLAN TO RETURN HOME WITH "DMITRY" UPON DISCHARGE FROM REHAB. [facility] INPATIENT REHAB TO CONTACT MED 2 NURSE WITH ROOM NUMBER WHEN READY TO ACCEPT PT AND NURSE REPORT. Clint Curry, CASE MANAGEMENT DCP- Discharge Planning Updated by [id number]: Clint Curry on 02/05/19 2:[address] Patient Name: RL SIU Encounter No: [id number] : 1935 Primary Insurance: MEDICARE A & B Anticipated DC Date: Planned Disposition: Inpatient Rehab External Planned Provider: [facility] NIPATIENT REHAB DCP follow-up note: CM RECEIVED REQUEST FROM FAMILY MEMBER TO SPEAK TO THEM. CM SPOKE TO PT'S GRANDDAUGHTER, CRISTO SIU, , OUTSIDE PT'S ROOM SHE DID NOT WANT TO TALK IN FRONT OF PT. CRISTO REPORTS SHE DOES NOT THINK PT SHOULD RETURN TO HER LIVING SITUATION WITH SABINE FATHER, PT'S SON. PT LIVES WITH DMITRY SIU, PT'S SON. PT HAS TOLD CRISTO THAT PT IS AFRAID OF HER SON, HAS TO HIDE FOOD IN THE ROOM TO HAVE FOOD TO EAT AND IS AFRAID OF HER SON. CRISTO REPORTS CALLING ADULT PROTECTIVE SERVICES MULTIPLE TIMES AND NOTHING IS DONE ABOUT IT. CRISTO REPORTS THAT DMITRY CAME UP TO THE HOSPITAL AND TOOK ALL OF PT'S PERSONAL BELONGINGS OUT OF PT'S ROOM. CM REVIEWED CHART AND CALLED ADULT PROTECTIVE SERVICES [phone], PROVIDED INFORMATION GIVEN TO CM BY PT'S GRANDDAUGHTER. REPORT TAKEN, CASE #[id number]. CM PROVIDED REFERENCE NUMBER TO GRANDDAUGHTER. PT'S GRANDDAUGHTER REPORTS PLAN CONTINUES TO BE FOR INPATIENT REHAB. CM SPOKE TO DR. YING WHO INFORMED CM THAT PT WILL NEED REHAB SERVICES. CM SPOKE TO PT AND FAMILY IN ROOM; PT REPORTS SHE WILL CONSIDER REHAB. PT'S GRANDDAUGHTER STATES THEY DO WANT REHAB AT [place]. PT REPORTS THAT SHE DOES NOT WANT TO GO TO A [facility] FACILITY. CM RECEIVED INPATIENT REHAB PRESCREENING ORDER. CM WAITING INPATIENT REHAB PRESCREENING BY [facility] INPATIENT REH[facility]. Clint Curry, CASE MANAGEMENT DCP- Discharge Planning Updated by [id number]: Merna López on 02/04/19 8:[address] Patient Name: RL SIU Admission Status: ER Accout number: [id number] Admission Date: 02-01-2019 : 1935 Admission Diagnosis:HEART FAILURE, UNSPECIFIED Attending: VIVIANE TORRES Current LOS: 3 Anticipated DC Date: Planned Disposition: Primary Insurance: MEDICARE A & B Discharge Planning Comments: CM MET WITH PATIENT ABOUT DC PLANNING/NEEDS. STATES LIVES WITH HER SON AND IS INDEPENDANT AT HOME. PT AT BEDSIDE NOW. I DISCUSSED HH, SNF, AND IPR[facility] WITH HER. SHE IS NOT INTERESTED RIGHT NOW BUT SHE LOOKS LIKE SHE COULD BENEFIT FROM IT. I NOTICED SHE WAS VERY WEAK AND SOB. CM TO FOLLOW AND ASSIST NEEDED. Surgical Resident: Merna López DCPIA - Discharge Planning Initial Assessment Updated by [id number]: Merna López on 02/04/19 9:52 am * Is the patient Alert and Oriented? Yes * PCP IN [place] * [facility] * Preadmission Environment Home with Family * ADLs Independent * Equipment Cane Nebulizer Oxygen * Other Equipment NOT SURE IT MAY BE A TRILOGY. * List name and contact numbers for known caregivers / representatives who currently or will assist patient after discharge: EKATERINA ANDRES, * Community resources currently utilized None * Additional services required to return to the preadmission environment? Yes * Can the patient safely return to the preadmission environment? Yes * Has this patient been hospitalized within the prior 30 days at any hospital? No Coverage Notice Reviewer: [id number] Italo Curry Notice Issued Date-Time: 02/09/2019 15:40 Notice Type: IM Discharge Notice Notice Delivered To: Patient Relationship to Patient: Woodworking Craftsman Name: Delivery Method: HAND - Hand Delivered Samra Days: Prior Verbal Notification: Recipient Understood Notice: Yes Recipient Signature: Yes Med Rec Note Co-signed by Attending: Coverage Notice Comment: Last DP export: 02/09/19 2:43 pm Patient Name: RL SIU Page [phone] at 1554 All edits/amendments must be made on the electronic document DICTATION DATE: 02/09/19 1553 EDI PROGRAMMER: DIANELYS 02/09/19 1553 RPT#: [id number] DC DATE: STATUS: ADM IN [facility] [address] [place] [address] END OF REPORT
--- NOTE | 2019-02-09 17:21 | NUR ---
OT NOTE: PT COMPLETED BED MOBILITY TASKS WITH MIN A. PT COMPLETED UE AROM EXS. THANK YOU, MARYAN AYALA
[2019-02-09] MEDS ORDERED: PLAVIX75 MG PO (17:24)
[2019-02-09] MEDS ORDERED: METOPROLOL TART50 MG PO (17:25)
--- NOTE | 2019-02-09 18:12 | NUR ---
IV IS INFILTRATED AT THIS TIME. ICE PACK PROVIDED. SALINE LOCK D/C WITH CATH INTACT MINIMAL BLEEDING DRESSING APPLIED. SHE REFUSES TO HAVE IV RESITED. PAGEYadi CHAMBERS ANP AT THIS TIME TO NOTIFY HER.
[2019-02-09 18:52] VITALS: BP 115/68
--- NOTE | 2019-02-09 19:15 | NUR ---
REPORT RECIEVED AND ROUNDING COMPLETE. PATIENT ON HIGH FLOW 02 VIA NASAL CANNULA WITH O2 AT 4L. PATIENT SITTING UP IN BED WONDERING ABOUT WHEN SHE IS GOING TO REHAB. PATIENT STATES NO NEEDS AT THIS TIME. CALL LIGHT WITHIN REACH BED IN LOWEST POSITION.
--- NOTE | 2019-02-09 20:18 | NUR ---
TALKED WITH DR. JOSEPH. HE OK'D ME TO DISCHARGE PATIENT TO REHAB.
--- NOTE | 2019-02-09 21:14 | NUR ---
TIFFANYIEWED DISCHARGE PAPERWORK WITH PATIENT. PATIENT STATED SHE UNDERSTOOD AND SIGNED PAPERWORK. PATIENT BEING TAKEN DOWN TO REHAB VIA WHEELCHAIR PUSHED BY MANAGER ER. NO OTHER NEEDS AT THIS TIME.
--- NOTE | 2019-02-10 08:15 | MORECARE ---
CASE MANAGEMENT DISCHARGE SUMMARY PATIENT: RL SIU UNIT: [id number] ADM DATE: 02/01/19 AGE: 83 : 35 SEX: F ROOM/BED: D.3804 AUTHOR: MARIA ISABEL KAY PHYSICIAN: REFERRING PHYSICIAN: VIVIANE TORRES DO DATE OF SERVICE: 02/10/19 Discharge Plan Patient Name: RL SIU [facility] [facility] 1935 Planned Disposition: Inpatient Rehab Anticipated Discharge Date: 02/09/19 Discharge Date: 02/09/2019 Expected LOS: 8 Initial Reviewer: [id number] Initial Review Date: 02/04/2019 Generated: 02/10/19 9:15 am Comments DCP- Discharge Planning Updated by [id number]: Clint Curry on 02/09/19 2:[address] Patient Name: RL SIU Encounter No: [id number] : 1935 Primary Insurance: MEDICARE A & B Anticipated DC Date: 02-09-2019 Planned Disposition: Inpatient Rehab External Planned Provider: [facility] INPATIENT REHAB DCP follow-up note: CM SPOKE TO AMEENA OF ADULT PROTECTIVE SERVICES OUT OF [facility], SHE WILL MEET WITH PT TODAY. THERE IS NO HOLD AT THIS TIME BY ADULT PROTECTIVE SERVICES. CM SPOKE TO MEL OF INPATIENT REHAB, THEY PLAN TO ACCEPT PT TODAY FOR REHAB IF STABLE FOR DISCHARGE. CM SPOKE TO DR. DELACRUZ AND PATO CARRASQUILLO, THEY PLAN TO DISCHARGE PT TO REHAB TODAY. PT NOTIFIED, IN AGREEMENT WITH DISCHARGE TO INPATIENT REHAB TODAY. IMPORTANT MESSAGE FROM MEDICARE PROVIDED AND EXPLAINED. PT ASKED WHO CALLED ADULT PROTECTIVE SERVICES, CM ADVISED THAT CM CALLED DUE TO BEING TOLD PT IS AFRAID OF HER SON. PT STATES SHE IS NOT AFRAID OF HER SON AND HE DOES NOT KEEP FOOD FROM HER AT HOME. PT REPORTS SHE GETS PLENTY TO EAT. PT REPORTS PLAN TO RETURN HOME WITH "DMITRY" UPON DISCHARGE FROM REHAB. [facility] INPATIENT REHAB TO CONTACT MED 2 NURSE WITH ROOM NUMBER WHEN READY TO ACCEPT PT AND NURSE REPORT. Clint Curry, CASE MANAGEMENT DCP- Discharge Planning Updated by [id number]: Clint Curry on 02/05/19 2:[address] Patient Name: RL SIU Encounter No: [id number] : 1935 Primary Insurance: MEDICARE A & B Anticipated DC Date: Planned Disposition: Inpatient Rehab External [facility] DCP follow-up note: CM RECEIVED REQUEST FROM FAMILY MEMBER TO SPEAK TO THEM. CM SPOKE TO PT'S GRANDDAUGHTER, CRISTO SIU, , OUTSIDE PT'S ROOM SHE DID NOT WANT TO TALK IN FRONT OF PT. CRISOT REPORTS SHE DOES NOT THINK PT SHOULD RETURN TO HER LIVING SITUATION WITH SABINE FATHER, PT'S SON. PT LIVES WITH DMITRY SIU, PT'S SON. PT HAS TOLD CRISTO THAT PT IS AFRAID OF HER SON, HAS TO HIDE FOOD IN THE ROOM TO HAVE FOOD TO EAT AND IS AFRAID OF HER SON. CRISTO REPORTS CALLING ADULT PROTECTIVE SERVICES MULTIPLE TIMES AND NOTHING IS DONE ABOUT IT. CRISTO REPORTS THAT DMITRY CAME UP TO THE HOSPITAL AND TOOK ALL OF PT'S PERSONAL BELONGINGS OUT OF PT'S ROOM. CM REVIEWED CHART AND CALLED ADULT PROTECTIVE SERVICES [phone], PROVIDED INFORMATION GIVEN TO CM BY PT'S GRANDDAUGHTER. REPORT TAKEN, CASE #[id number]. CM PROVIDED REFERENCE NUMBER TO GRANDDAUGHTER. PT'S GRANDDAUGHTER REPORTS PLAN CONTINUES TO BE FOR INPATIENT REHAB. CM SPOKE TO DR. YING WHO INFORMED CM THAT PT WILL NEED REHAB SERVICES. CM SPOKE TO PT AND FAMILY IN ROOM; PT REPORTS SHE WILL CONSIDER REHAB. PT'S GRANDDAUGHTER STATES THEY DO WANT REHAB AT [facility]. PT REPORTS THAT SHE DOES NOT WANT TO GO TO A PRISON FACILITY. CM RECEIVED INPATIENT REHAB PRESCREENING ORDER. CM WAITING INPATIENT REHAB PRESCREENING BY [facility] INPATIENT REHAB. Clint Curry, CASE MANAGEMENT DCP- Discharge Planning Updated by [id number]: eMrna López on 02/04/19 8:[address] Patient Name: RL SIU Admission Status: ER Accout number: [id number] Admission Date: 02-01-2019 : 1935 Admission Diagnosis:HEART FAILURE, UNSPECIFIED Attending: VIVIANE TORRES Current LOS: 3 Anticipated DC Date: Planned Disposition: Primary Insurance: MEDICARE A & B Discharge Planning Comments: CM MET WITH PATIENT ABOUT DC PLANNING/NEEDS. STATES LIVES WITH HER SON AND IS INDEPENDANT AT HOME. PT AT BEDSIDE NOW. I DISCUSSED HH, SNF, AND IPRH WITH HER. SHE IS NOT INTERESTED RIGHT NOW BUT SHE LOOKS LIKE SHE COULD BENEFIT FROM IT. I NOTICED SHE WAS VERY WEAK AND SOB. CM TO FOLLOW AND ASSIST NEEDED. Manufacturing Baker: Merna López DCPIA - Discharge Planning Initial Assessment Updated by [id number]: Merna López on 02/04/19 9:52 am * Is the patient Alert and Oriented? Yes * PCP IN [place] * Pharmacy [facility] * Preadmission Environment Home with Family * ADLs Independent * Equipment Cane Nebulizer Oxygen * Other Equipment NOT SURE IT MAY BE A TRILOGY. * List name and contact numbers for known caregivers / representatives who currently or will assist patient after discharge: EKATERINA ANDRES, * Community resources currently utilized None * Additional services required to return to the preadmission environment? Yes * Can the patient safely return to the preadmission environment? Yes * Has this patient been hospitalized within the prior 30 days at any hospital? 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
== END 2019-02-09 21:19 | DRG 280 ==
LOC: D.ER 17:36 → D.MS 18:39 → D.M2 02-04 12:34
PROVIDERS: Family Medicine; Internal Medicine Interventional Cardiology; Internal Medicine Nephrology; ADMIT Family Medicine; ATTEND Family Medicine
PROC: 5A09357 Assistance with Respiratory Ventilation, Less than 24 Consecutive Hours, Continuous Positive Airway Pressure (ICD-10-PCS; 2019-02-03)
PROC: 4A023N7 Measurement of Cardiac Sampling and Pressure, Left Heart, Percutaneous Approach (ICD-10-PCS; 2019-02-04)
PROC: B2111ZZ Fluoroscopy of Multiple Coronary Arteries using Low Osmolar Contrast (ICD-10-PCS; principal; 2019-02-04 12:00)
DX: I08.3 Combined rheumatic disorders of mitral, aortic and tricuspid valves (principal); J96.21 Acute and chronic respiratory failure with hypoxia; I21.A1 Myocardial infarction type 2; I50.31 Acute diastolic (congestive) heart failure; D68.9 Coagulation defect, unspecified; F17.213 Nicotine dependence, cigarettes, with withdrawal; J98.11 Atelectasis; I25.10 Atherosclerotic heart disease of native coronary artery without angina pectoris; E78.5 Hyperlipidemia, unspecified; I11.0 Hypertensive heart disease with heart failure; K21.9 Gastro-esophageal reflux disease without esophagitis; I70.203 Unspecified atherosclerosis of native arteries of extremities, bilateral legs; D64.9 Anemia, unspecified; J43.9 Emphysema, unspecified

== ENCOUNTER 2019-02-09 21:56 | Inpatient (IN) | payer MEDICARE, OTHER ==
[~2019-02-09] VITALS: Ht 167.6 cm; Wt 40.8 kg
[~2019-02-09 21:56] MED LIST changes: +FUROSEMIDE20 MG PO; +METOPROLOL TART50 MG PO; +PLAVIX75 MG PO; +POT CHLORIDE TAB 10M PO
[2019-02-09 22:20] VITALS: BMI 14.5
--- NOTE | 2019-02-09 22:40 | NUR ---
ADMITTED TO [facility] FOR PHYSICAL REHAB AND SERVICES OF DR MCGARRY. AWAKE AND ALERT. ON O2/4.5L PER NASAL CANNULA. NOTED SHORTNESS OF BREATH WITH MINIMAL EXERTION. DENIES PAIN. NO ACUTE DISTRESS NOTED. CALL LIGHT IN REACH
[2019-02-10 02:16] LABS: APPEARANCE CLEAR (CLEAR); BILIRUBIN NEGATIVE (NEGATIVE); COLOR YELLOW (YELLOW); GLUCOSE NEGATIVE (NEGATIVE); KETONE NEGATIVE (NEGATIVE); NITRITE NEGATIVE (NEGATIVE); PROTEIN TRACE mg/dL (NEGATIVE); UROBILINOGEN NORMAL (NORMAL)
--- NOTE | 2019-02-10 02:19 | NUR ---
RESTING IN BED WITH NO DISTRESS NOTED. URINE SPECIMEN COLLECTED AND SENT TO LAB FOR ANALYSIS. CALL APOLONIA NESBITT.
[2019-02-10 02:23] LABS: BACTERIA FEW /hpf (NONE SEEN); EPITHELIAL CELLS 0-5 /hpf (0-5); WHITE CELLS - URINE 0-5 /hpf (0-5)
--- NOTE | 2019-02-10 05:00 | NUR ---
QUIET HOURS. RESTING IN BED WITH NO ACUTE DISTRESS NOTED. O2/4.5L ON PER NASAL CANNULA. NO ACUTE CHANGES THIS SHIFT.
--- NOTE | 2019-02-10 07:35 | NUR ---
RESTING WITH EYES CLOSED. NO DISTRESS NOTED. RESP EVEN AND UNLABORED. CL IN REACH.
[2019-02-10 07:41] LABS: HEMATOCRIT 31.5 % (36.0-48.0); HEMOGLOBIN 9.7 g/dL (12-16); MCH 23.1 pg (26.0-34.0); MCHC 30.8 g/dL (31.0-37.0); PLATELET COUNT 194 10x3/uL (130-400); RDW 25.2 % (11.5-14.5); WBC 9.1 10x3/uL (4.8-10.8)
[2019-02-10 07:45] LABS: ANION GAP 9.5 mmol/L (8-16); CALCIUM 8.2 mg/dL (8.5-10.1); CARBON DIOXIDE 30.6 mmol/L (21.0-32.0); CREATININE - SERUM 0.9 mg/dL (0.6-1.3); POTASSIUM - SERUM 4.1 mmol/L (3.5-5.1)
[2019-02-10 08:00] VITALS: BP 126/41
[2019-02-10 08:21] LABS: EOSINOPHILS 6 % (0-7); LYMPHOCYTES 17 % (15-50); MONOCYTES 4 % (2-11); NEUTROPHILS 73 % (40-80); PLATELET ESTIMATE NORMAL; POIKILOCYTOSIS 1+
[2019-02-10 09:07] VITALS: Ht 167.6 cm; Wt 40.8 kg
--- NOTE | 2019-02-10 13:04 | NUR ---
NO CHANGE IN ASSESSMENT. NO C/O PAIN. SITTING IN CHAIR. CL IN REACH.
--- NOTE | 2019-02-10 16:24 | NUR ---
NO CHANGE IN ASSESSMENT. RESTING WITH EYES CLOSED. NO DISTRESS NOTED.
--- NOTE | 2019-02-10 19:27 | NUR ---
AWAKE AND ALERT. RESTING IN BED. O2/4.5L ON PER NASAL CANNULA. NOTED SHORTNESS OF BREATH WITH EXERTION. NO C/O PAIN OR DISCOMFORTS. NO ACUTE DISTRESS NOTED. CALL LIGHT IN REACH.
[2019-02-10 20:02] VITALS: BP 137/40
--- NOTE | 2019-02-11 03:40 | NUR ---
RESTING QUIETLTY IN BED WITH OXYGEN AT 4.5ML . NO ACUTE DISTRESS NOTED.
--- NOTE | 2019-02-11 04:53 | NUR ---
QUIET HOURS. RESTING IN BED. NO ACUTE CHANGES IN CONDITION THIS SHIFT. NO DISTRESS NOTED.
--- NOTE | 2019-02-11 06:09 | NUR ---
CHURCH CATHETER DC'D AND INSTRUCTIONS GIVEN TO PATIENT TO NOTIFY NURSE OF FIRST VOID OR IF SHE DOES NOT VOID IN 4 HOURS. VOICES UNDERSTANDING.
[2019-02-11 08:02] VITALS: BP 145/53
--- NOTE | 2019-02-11 08:02 | NUR ---
ALERT AND ORIENTED. NO C/O PAIN. CL IN REACH. RESP EVEN AND UNLABORED. CL IN REACH.
[2019-02-11 09:46] LABS: BASOPHILS 0.2 % (0-2); EOSINOPHILS 3.2 % (0-7); HEMATOCRIT 32.7 % (36.0-48.0); HEMOGLOBIN 9.9 g/dL (12-16); IMMATURE GRANULOCYTES 0.3 % (0-5); LYMPHOCYTES 22.7 % (15-50); MCH 22.9 pg (26.0-34.0); MCHC 30.3 g/dL (31.0-37.0); MCV 75.7 fL (80.0-100.0); MONOCYTES 5.3 % (2-11); NEUTROPHILS 68.3 % (40-80); PLATELET COUNT 229 10x3/uL (130-400); RBC 4.32 10x6/uL (4.00-5.40); RDW 25.9 % (11.5-14.5); WBC 9.2 10x3/uL (4.8-10.8)
[2019-02-11 09:59] LABS: ANION GAP 11.8 mmol/L (8-16); CALCIUM 8.1 mg/dL (8.5-10.1); CARBON DIOXIDE 27.7 mmol/L (21.0-32.0); CREATININE - SERUM 0.9 mg/dL (0.6-1.3); POTASSIUM - SERUM 3.5 mmol/L (3.5-5.1)
--- NOTE | 2019-02-11 12:09 | RHP ---
PATIENT: RL SIU MEDICAL RECORD: [id number] ACCOUNT: [id number] LOCATION:[id number] : [birth year] ADMISSION DATE: 02/09/19 REHABILITATION HISTORY AND PHYSICAL EXAMINATION POST ADMISSION PHYSICIAN EXAMINATION DATE OF ADMISSION: 02/09/2019 ADMITTING DIAGNOSES: Pulmonary with acute exacerbation of chronic obstructive pulmonary disease. 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 She was placed on BiPAP upon admission. She was admitted with acute exacerbation of chronic obstructive pulmonary disease. During her acute stay, she was seen by Dr. Rucker who recommended a heart catheterization after stabilization. Cardiology was consulted. The heart cath was done on 02/04/2019 with an overall impression of diffuse trkj-xk-mvndvpjx coronary artery disease, but no flow limiting stenosis. Her myocardial infarction that she suffered was secondary to demand ischemia. It was decided to do medical management of her aortic stenosis. CT of her chest showed a qvqax-wv-bjknfnew right and small left pleural effusions. Pulmonary was consulted. She has been placed on BiPAP, DuoNeb, steroids, Pulmicort, continued antibiotics. Discussed smoking cessation with this patient. She has been requested use BiPAP at night continuously while in the hospital, will need outpatient referral for a TAVR evaluation per CTS. She is currently on 4 liters of high-flow nasal cannula and BiPAP at night. She is very weak. She fatigues easily. She is ambulating with mod-to-max assist using a rolling walker and requiring rest break. These are all barriers to her discharge home at this time. She continues to need respiratory management, continue to need for 24-hour nursing dietitian. Adult protective services have been consulted at her granddaughter's request stating that she is apparently afraid of her caregiver. Prior to this admission, she was living with her son, was independent with ADLs, moderately independent with ambulation using a cane. She will require intensive therapy with PT, OT in order to regain her prior level of functioning. COMORBIDITIES: In this patient include non-Q-wave myocardial infarction, chronic hypoxic respiratory failure, CHF, emphysema, aulgm-iw-cykxlzta right and small left pleural effusions, coronary artery disease, COPD, hyperlipidemia, chronic anticoagulation, moderate aortic stenosis, peripheral arterial disease, chronic Coumadin need, anemia, hyperlipidemia, dyspnea and bronchitic cough. PAST MEDICAL HISTORY: Significant for hyperlipidemia, peripheral arterial disease, ulcers, arthritis, COPD. PAST SURGICAL HISTORY: Includes tonsillectomy and adenoidectomy. She has had a left hip. She has had stent placement. She has had A&P repair in the past, bypass and arterial intervention. ALLERGIES: IODINATED CONTRAST, ADHESIVES, ASPIRIN AND PENICILLIN. CURRENT MEDICATIONS: Include potassium 10 mEq daily, Plavix 75 mg daily, Lipitor 40 mg daily, Advair one inhalation b.i.d., Protonix 40 mg daily, HISTORY AND PHYSICAL [id number] RL SIU metoprolol 25 mg b.i.d., furosemide 10 mg every 48 hours and Ventolin updrafts. HABITS: Does have a history of continued tobacco use. FAMILY HISTORY: Noncontributory. SOCIAL HISTORY: The patient hopes to return back home and get back to her prior level of functioning. REVIEW OF SYSTEMS: GENERAL: Does complain of weakness and fatigue. HEENT: Denies cold, cough, or congestion. CARDIOVASCULAR: Does complain of chest pain at times. LUNGS: Does complain of shortness of breath with any activity. PHYSICAL EXAMINATION: VITAL SIGNS: Stable. She is noted to be quite cachectic. Her pulse is 60, respirations are 19, blood pressure is 126/41. GENERAL: A very thin female in no acute distress upon exam. HEENT: Normocephalic and atraumatic. Mucosa moist. NECK: Supple. No lymphadenopathy. LUNGS: Decreased breath sounds bilaterally. CARDIOVASCULAR: Noted to be a regular rate and rhythm with a holosystolic murmur. ABDOMEN: Soft, benign, nontender, nondistended. Positive bowel sounds times 4. EXTREMITIES: No clubbing, cyanosis or edema. NEUROLOGIC: She does have noted weakness. LABORATORY DATA: White count is 9.1, H&H of 9.7 and 31.5. Her MCV is 75. Her platelet count is 194. Her sodium is 142, potassium 4.1, BUN and creatinine of 13 and 0.9, blood sugar is noted to be 84. Admit UA did show trace leukocyte esterase and a few bacteria. ASSESSMENT: This is an 83-year-old female patient admitted to rehab with a working diagnosis of debility secondary to chronic obstructive pulmonary disease and non-Q-wave myocardial infarction. The patient has potential to make improvement. We instituted the following multidisciplinary therapies including, but not limited to physical, occupational, respiratory, speech, nutritional services, prosthetics and orthotics. Given her complex medical condition and risks for more complications, rehabilitation services cannot be provided at a low level of care such as [facility] facility. PLAN: 1. Admit to [facility] for inpatient therapy to include the following disciplines; A. Physical therapy to improve gait, all transfer skills and bed mobility to a modified independent level. B. Occupational therapy to a modified independent level C. Case management to assist with discharge planning and placement options. D. Nutrition to assist with nutritional needs. E. Rehabilitation nursing to assist in monitoring the patient's underlying medical conditions and to assist with any type of bowel and bladder management. 2. The patient's current medical care and medication will be continued. 3. The patient will be placed on standard fall precautions. 4. The patient's estimated length of stay is approximately 7-10 days. HISTORY AND PHYSICAL [id number] RL SIU 5. We will see her again in the a.m. TRANSINT:[id number] Voice Confirmation ID: [id number] DOCUMENT ID: [id number] TIGIST notes whether there has been none or any medical/functional change since admission: - No change since prescreen. TIGIST attests patient continues to be appropriate for IRF: - Continues to be appropriate. LAYTON MCGARRY MD at 1209 CC: [id number] DICTATION DATE: 02/10/19 1027 DIRECTOR OF SPECIAL EDUCATION: 02/10/19 1103 ADM IN [facility] [address] [place] [address]
--- NOTE | 2019-02-11 12:50 | NUR ---
RESTING WO DISTRESS. HAS NOT VOIDED SINCE RANJIT ALANIS'Yadi. STATES SHE USUALLY VOIDS THREE TIMES A DAY AT HOME. DOES NOT VOID OFTEN SHE STATED. WILL BLADDER SCAN LATER TODAY IF SHE DOES NOT VOID.
--- NOTE | 2019-02-11 15:28 | NUR ---
UNABLE TO VOID AFTER CHURCH WAS REMOVED THIS AM. BLADDER SCANNED AND HAS 906CC URINE IN BLADDER AND DOES NOT FEEL URGE TO VOID. PLACED CHURCH USING STERILE PROCEDURE. FAST URINE RETURN WITH 900CC RETURNED.
--- NOTE | 2019-02-11 17:16 | NUR ---
NO CHANGE IN ASSESSMENT. RESTING WO DISTRESS. CL IN REACH.
--- NOTE | 2019-02-11 19:20 | NUR ---
PT RESTING QUIETLY. CL IN REACH. NO DISTRESS NOTED. WCTM
--- NOTE | 2019-02-11 21:45 | NUR ---
ASSISTED PT WITH DENTURE CARE. CHURCH INTACT. ASSESSMENT COMPLETED. LUNGS DIMINISHED. O2 ON 4.5L. BED IN LOW SIDE RAILS X2. RESP EVEN AND UNLABORED. PT DOES HAVE OCCASIONAL COUGH. CL IN REACH. URINE WNL. WCTM. DENIES NEEDS OR PAIN.
[2019-02-11 21:59] VITALS: BP 128/43
--- NOTE | 2019-02-12 04:29 | NUR ---
I have reviewed this patient and I concur with the Shift Assessment completed by the Licensed Practical Nurse today this shift.
--- NOTE | 2019-02-12 05:05 | NUR ---
RESTING QUIETLY. CL IN REACH. NO DISTRESS NOTED. WCTM
[2019-02-12 08:00] VITALS: BP 123/44
--- NOTE | 2019-02-12 08:36 | NUR ---
PT RESTING IN BED WITH EYES OPEN CALL LIGHT IN REACH WILL MONITER
--- NOTE | 2019-02-12 14:22 | NUR ---
Nutrition Follow Up: Chart reviewed Diet: Regular; Ensure TID PO Intake: 86% meal avg No BM since admit Wt loss 1# noted Labs reviewed Meds noted including Lasix Rec continue current diet, supplement regimen. RD following.
--- NOTE | 2019-02-12 18:12 | NUR ---
PT RESTING IN BED WITH EYES OPEN CALL LIGHT IN REACH WILL MONITER
--- NOTE | 2019-02-12 19:43 | NUR ---
AWAKE AND ALERT AND SITTING ON SIDE OF BED TALKING WITH ROOMMATE. O2/4.5L ON PER NASAL CANNULA. NO C/O DISCOMFORTS. NO DISTRESS NOTED.
[2019-02-12 19:44] VITALS: BP 139/45
--- NOTE | 2019-02-13 03:22 | NUR ---
RESTING IN BED WITH EYES CLOSED AND RESPIRATIONS UNLABORED. O2/4.5L ON PER NASAL CANNULA.
--- NOTE | 2019-02-13 04:58 | NUR ---
QUIET HOURS. RESTING IN BED WITH NO DISTRESS NOTED. NO ACUTE CHANGES IN CONDITION THIS SHIFT. CALL APOLONIA NESBITT.
[2019-02-13 06:41] LABS: ANION GAP 8.2 mmol/L (8-16); CALCIUM 8.5 mg/dL (8.5-10.1); CARBON DIOXIDE 31.8 mmol/L (21.0-32.0); CREATININE - SERUM 0.9 mg/dL (0.6-1.3)
--- NOTE | 2019-02-13 07:00 | NUR ---
RECEIVED REPORT. LYING IN BED ON RIGHT SIDE EYES CLOSED RESTING. CONTINUES ON 4L VIA NC. RR EVEN AND UNLABORED. CALL LIGHT WITHIN REACH, FALL PRECAUTIONS IN PLACE. WILL CONTINUE TO MONITOR
[2019-02-13 07:48] LABS: BASOPHILS 0.1 % (0-2); EOSINOPHILS 3.3 % (0-7); HEMATOCRIT 32.2 % (36.0-48.0); IMMATURE GRANULOCYTES 0.1 % (0-5); LYMPHOCYTES 22.8 % (15-50); MCH 23.6 pg (26.0-34.0); MCHC 31.1 g/dL (31.0-37.0); MCV 75.9 fL (80.0-100.0); MONOCYTES 6.4 % (2-11); NEUTROPHILS 67.3 % (40-80); PLATELET COUNT 202 10x3/uL (130-400); RBC 4.24 10x6/uL (4.00-5.40); RDW 27.2 % (11.5-14.5); WBC 8.2 10x3/uL (4.8-10.8)
[2019-02-13 08:00] VITALS: BP 131/34
[2019-02-13 10:54] VITALS: BP 131/34
--- NOTE | 2019-02-13 11:45 | NUR ---
LYING IN BED ON RIGHT SIDE EYES CLOSED RESTING. NO SIGNS OF DISTRESS NOTED.
--- NOTE | 2019-02-13 13:48 | NUR ---
SITTING UP IN BED LOOKING AT TV. DENIES ANY NEEDS OR PAIN. NO SIGNS OF DISTRESS NOTED. WILL CONTINUE TO MONITOR
--- NOTE | 2019-02-13 17:03 | NUR ---
SITTING UP ON SIDE OF BED EATING DINNER.
[2019-02-13 19:40] VITALS: BP 137/45
--- NOTE | 2019-02-13 19:51 | NUR ---
AWAKE AND ALERT. RESTING IN BED. O2/4L ON PER NASAL CANNULA. SHORTNESS OF BREATH NOTED WITH MINIMAL EXERTION. NO C/O PAIN. CALL LIGHT IN REACH.
--- NOTE | 2019-02-14 05:03 | NUR ---
QUIET HOURS. RESTING IN BED WITH NO DISTRESS NOTED. NO ACUTE CHANGES IN CONDITION THIS SHIFT. CALL LIGHT IN REACH.
--- NOTE | 2019-02-14 07:00 | NUR ---
RECEIVED REPORT. LYING ON RIGHT SIDE EYES CLOSED RESTING. NO SIGNS OF DISTRESS NOTED. CONTINUES ON 4L HIGH FLOW. CALL LIGHT WITHIN REACH, FALL PRECAUTIONS IN PLACE. WILL CONTINUE TO MONITOR
[2019-02-14 08:00] VITALS: BP 126/44
--- NOTE | 2019-02-14 09:30 | NUR ---
SPOKE WITH MARVA IN PHARMACY TO INQUIRE ABOUT RECEIVING LACTAID FOR PT. MARVA STATED THAT THEY HAVE RECEIVED MEDICATION AND WILL HAVE IT BROUGHT DOWN.
--- NOTE | 2019-02-14 12:32 | NUR ---
SITTING UP IN W/C EATING LUNCH. NO FAMILY AT BEDSIDE NOTED. NO SIGNS OF DISTRESS, CONTINUES ON 4L VIA HIGH FLOW. WILL CONTINUE TO MONITOR
--- NOTE | 2019-02-14 12:53 | NUR ---
LACTAID HAS NOT BEEN BROUGHT DOWN FROM PHARMACY. NOTED UNAVAILABLE FROM PHARMACY
--- NOTE | 2019-02-14 15:37 | NUR ---
LYING IN BED SUPINE EYES CLOSED RESTING. NO SIGNS OF DISTRESS NOTED. BED ALARM ON.
--- NOTE | 2019-02-14 17:35 | NUR ---
SITTING UP IN BED EATING DINNER. FAMILY AT BEDSIDE. NO SIGNS OF DISTRESS NOTED. CHURCH 600ML EMPTIED.
--- NOTE | 2019-02-14 19:22 | NUR ---
GREETED PATIENT AND INTRODUCED MYSELF. PATIENT IS LAYING IN BED WATCHING TV. O2 AT 4L IN USE WITH HIGH FLOW. RESPIRATIONS EVEN. NO S/S OF DISTRESS. SR UP X 2. BED IN LOWEST POSITION. CALL LIGHT IN REACH.
[2019-02-14 20:13] VITALS: BP 142/43
[2019-02-14 20:24] VITALS: BP 142/43
--- NOTE | 2019-02-15 03:32 | NUR ---
PATIENT RESTING QUIETLY WITH EYES CLOSED. O2 AT 4L IN USE. RESPIRATIONS EVEN. NO S/S OF DISTRESS. CALL LIGHT IN REACH.
[2019-02-15 07:00] VITALS: BP 125/35
--- NOTE | 2019-02-15 07:00 | NUR ---
RECEIVED REPORT. LYING IN BED ON LEFT SIDE EYES CLOSED RESTING. EASILY AROUSED WITH VERBAL STIMULI. VS STABLE. DENIES ANY NEEDS OR PAIN. SHIFT ASSESSMENT COMPLETED. CONTINUES ON 4L VIA HIGH FLOW NC. CALL LIGHT WITHIN REACH, FALL PRECAUTIONS IN PLACE. WILL CONTINUE TO MONITOR
--- NOTE | 2019-02-15 12:48 | NUR ---
SITTING UP IN BED EATING LUNCH. NO SIGNS OF DISTRESS NOTED. FAMILY AT BEDSIDE
--- NOTE | 2019-02-15 17:39 | NUR ---
SITTING UP ON SIDE OF BED EATING DINNER. FAMILY AT BEDSIDE NOTED. DENIES ANY NEEDS OR PAIN. CONTINUES ON 4L VIA HIGH FLOW NC. CALL LIGHT WITHIN REACH, FALL PRECAUTIONS IN PLACE. WILL CONTINUE TO MONITOR
--- NOTE | 2019-02-15 19:30 | NUR ---
PATIENT SITTING UP IN BED WATCHING TV. ALERT AND ORIENTED X3. O2 ON PER NASAL CANNULA AT 4L. NO COMPLAINTS OF PAIN OR DISCOMFORT AT THIS TIME. WILL CONTINUE TO MONITOR. CALL LIGHT WITHIN REACH.
[2019-02-15 22:50] VITALS: BP 137/43
--- NOTE | 2019-02-16 01:57 | NUR ---
PATIENT SLEEPING AT THIS TIME. WILL CONTINUE TO MONITOR.
[2019-02-16 06:30] LABS: BASOPHILS 0.7 % (0-2); EOSINOPHILS 3.2 % (0-7); HEMATOCRIT 34.1 % (36.0-48.0); HEMOGLOBIN 10.6 g/dL (12-16); LYMPHOCYTES 22.9 % (15-50); MCH 23.6 pg (26.0-34.0); MCHC 31.1 g/dL (31.0-37.0); MCV 75.8 fL (80.0-100.0); MONOCYTES 5.6 % (2-11); NEUTROPHILS 67.6 % (40-80); PLATELET COUNT 198 10x3/uL (130-400); RDW 27.9 % (11.5-14.5); WBC 7.5 10x3/uL (4.8-10.8)
[2019-02-16 06:46] LABS: ANION GAP 10.1 mmol/L (8-16); CALCIUM 8.4 mg/dL (8.5-10.1); CREATININE - SERUM 0.9 mg/dL (0.6-1.3); POTASSIUM - SERUM 4.1 mmol/L (3.5-5.1)
[2019-02-16 08:00] VITALS: BP 140/45
--- NOTE | 2019-02-16 08:00 | NUR ---
PT RESTING IN BED WITH EYES OPEN CALL LIGHT IN REACH WILL MONITER
--- NOTE | 2019-02-16 13:43 | NUR ---
PT RESTING IN BED WITH EYES OPEN CALL LIGHT IN REACH NO PROBLEMS WILL MONITER
--- NOTE | 2019-02-16 13:58 | NUR ---
PATIENT ADMITTED TO REHAB FROM ACUTE FLOOR. DISCHARGE PLANS ARE FOR PATIENT TO RETURN HOME WITH HER SON. DME AT HOME IS A CANE. O2 AND A NEBULIZER. HER PCP IS DR. JIMENEZ. WILL CONTINUE TO FOLLOW WITH PATIENT
--- NOTE | 2019-02-16 18:07 | NUR ---
PT RESTING IN BED WITH EYES OPEN CALL LIGHT IN REACH NO PROBLEMS WILL MONITER
--- NOTE | 2019-02-16 19:36 | NUR ---
AWAKE AND ALERT. SITTING IN BED WATCHIGN TV. O2/4L ON PER NASAL CANNULA. NO RESPIRATORY DISTRESS NOTED. CALL LIGHT IN REACH.
--- NOTE | 2019-02-17 04:58 | NUR ---
QUIET HOURS. NO ACUTE CHANGES IN CONDITION THIS SHIFT. RESTING IN BED WITH O2/4L ON PER NASAL CANNULA. NO DISTRESS NOTED. CALL LIGHT IN REACH.
[2019-02-17 07:05] VITALS: BP 138/43
--- NOTE | 2019-02-17 07:05 | NUR ---
RECEIVED REPORT. LYING IN BED ON RIGHT SIDE EYES CLOSED RESTING. EASILY AROUSED WITH VERBAL STIMULI. DENIES ANY NEEDS OR PAIN. CONTINUES ON 4L VIA HIGH FLOW NC. VS STABLE SHIFT ASSESSMENT COMPLETE. CALL LIGHT WITHIN REACH, FALL PRCAUTIONS IN PLACE. WILL CONTINUE TO MONITOR
--- NOTE | 2019-02-17 11:52 | NUR ---
WALKING IN [place] WITH PHYSICAL THERAPY. NO SIGNS OF DISTRESS NOTED.
--- NOTE | 2019-02-17 12:45 | NUR ---
NUTRITION F//U CHART REVIEWED. PT IN THERAPY. TOLERATING LOW NA+ DIET WITH 100% INTAKE RECENT MEALS. WILL CONTINUE TO PROVIDE DIET, MONITOR PO INTAKE. RD FOLLOWING
--- NOTE | 2019-02-17 14:25 | NUR ---
SITTING UP IN W/C READING BOOK. DENIES ANY NEEDS OR PAIN. CONTINUES ON 4L VIA HIGH FLOW NC. NO SIGNS OF DISTRESS NOTED. WILL CONTINUE TO MONITOR
--- NOTE | 2019-02-17 17:34 | NUR ---
SITTING UP IN BED EATING DINNER. NO SIGNS OF DISTRESS NOTED. WILL CONTINUE TO MONITOR
[2019-02-17 19:39] VITALS: BP 162/44
--- NOTE | 2019-02-17 20:11 | NUR ---
AWAKE AND ALERT. RESTING IN BED WITH O2/4L ON PER NASAL CANNULA. NO ACUTE DISTRESS NOTED. CALL LIGHT IN REACH.
--- NOTE | 2019-02-18 02:22 | NUR ---
RESTING IN BED WITH NO DISTRESS NOTED. O2/4L ON PER NASAL CANNULA. CHURCH CATHETER PATENT AND DRAINING RBENDAN URINE. CALL LIGHT IN REACH.
--- NOTE | 2019-02-18 04:56 | NUR ---
QUIET HOURS. NO ACUTE CHANGES IN CONDITION THIS SHIFT. RESTING IN BED WITH NO DISTRESS NOTED. CALL LIGHT IN REACH.
[2019-02-18 07:20] LABS: BASOPHILS 0.7 % (0-2); EOSINOPHILS 3.2 % (0-7); HEMATOCRIT 32.4 % (36.0-48.0); HEMOGLOBIN 9.9 g/dL (12-16); LYMPHOCYTES 22.6 % (15-50); MCH 23.5 pg (26.0-34.0); MCHC 30.6 g/dL (31.0-37.0); MCV 76.8 fL (80.0-100.0); NEUTROPHILS 67.5 % (40-80); PLATELET COUNT 186 10x3/uL (130-400); RBC 4.22 10x6/uL (4.00-5.40); RDW 28.1 % (11.5-14.5); WBC 7.2 10x3/uL (4.8-10.8)
[2019-02-18 07:36] LABS: ANION GAP 11.2 mmol/L (8-16); CALCIUM 8.6 mg/dL (8.5-10.1); CARBON DIOXIDE 28.8 mmol/L (21.0-32.0); CREATININE - SERUM 0.8 mg/dL (0.6-1.3)
--- NOTE | 2019-02-18 07:59 | NUR ---
ALERT AND ORIENTED. EATING BREAKFAST. NO C/O PAIN. CL IN REACH. RESP EVEN AND UNLABORED.
[2019-02-18 08:00] VITALS: BP 136/64
--- NOTE | 2019-02-18 13:37 | NUR ---
SHOWER PER OT TODAY.
--- NOTE | 2019-02-18 13:52 | NUR ---
PARTICIPATING IN THERAPY. NO C/O PAIN.
--- NOTE | 2019-02-18 14:31 | NUR ---
CARE TEAM MEETING: PATIENT PROGRESSING WELL IN THERAPY AND HER TENATIVE DISCHARGE DATE IS 02/20/19. SHE WILL RETURN HOME WITH HER SON . AMEENA WITH APS WAS INFORMED OF DISCHARGE DATE AND SHE WILL DO A HOME VISIT WHEN DISCHARGED. WILL CONTINUE TO FOLLOW WITH PATIENT
--- NOTE | 2019-02-18 18:12 | NUR ---
NO CHANGE IN ASSESSMENT. ALERT AND ORIENTED. NO DISTRESS NOTED.
--- NOTE | 2019-02-18 19:36 | NUR ---
AWAKE AND ALERT. RESTING IN BED WITH NO DISTRESS NOTED. SOME SHORTNESS OF BREATH WITH EXERTION. O2/4L ONPER NASAL CANNULA. CALL LIGHT IN REACH.
[2019-02-18 20:40] VITALS: BP 135/40
--- NOTE | 2019-02-19 05:20 | NUR ---
QUIET HOURS. RESTING IN BED WITH NO ACUTE DISTRESS NOTED. O2/4L ON PER NASAL CANNULA. CHURCH PATENT WITH 300ML OUTPUT WITH HEMATURIA NOTED. MESSAGE LEFT ON ROUNDING SHEET FOR DR MCGARRY.
[2019-02-19 08:00] VITALS: BP 135/45
--- NOTE | 2019-02-19 08:15 | NUR ---
PT RESTING IN BED WITH EYES OPEN CALL LIGHT IN REACH WILL MONITER
--- NOTE | 2019-02-19 18:31 | NUR ---
PT RESTING IN BED WITH EYES OPEN CALL LIGHT IN REACH NO PROBLEMS WILL MONITER
--- NOTE | 2019-02-19 19:41 | NUR ---
PATIENT RECEIVED SITTING UP IN WHEELCHAIR. VITAL SIGNS & ASSESSMENT DONE. NO C/O PAIN OR DISTRESS. CALL LIGHT WITHIN REACH. WILL CONTINUE TO MONITOR.
[2019-02-19 19:57] VITALS: BP 157/48
--- NOTE | 2019-02-20 02:21 | NUR ---
PATIENT EYES CLOSED. RESPIRATIONS 18 & EVEN. BED LOW. ALARM ON. CALL LIGHT WITHIN REACH. WILL CONTINUE TO MONITOR.
--- NOTE | 2019-02-20 06:15 | NUR ---
I have reviewed this patient and I concur with the Shift Assessment completed by the Licensed Practical Nurse today this shift.
[2019-02-20 07:05] LABS: BASOPHILS 0.9 % (0-2); EOSINOPHILS 3.8 % (0-7); HEMATOCRIT 33.5 % (36.0-48.0); HEMOGLOBIN 10.3 g/dL (12-16); IMMATURE GRANULOCYTES 0.2 % (0-5); LYMPHOCYTES 30.5 % (15-50); MCH 23.7 pg (26.0-34.0); MCHC 30.7 g/dL (31.0-37.0); MCV 77.2 fL (80.0-100.0); MONOCYTES 6.5 % (2-11); NEUTROPHILS 58.1 % (40-80); RBC 4.34 10x6/uL (4.00-5.40); RDW 28.1 % (11.5-14.5); WBC 5.6 10x3/uL (4.8-10.8)
[2019-02-20 07:09] LABS: ANION GAP 9.1 mmol/L (8-16); CALCIUM 8.4 mg/dL (8.5-10.1); CARBON DIOXIDE 31.1 mmol/L (21.0-32.0); POTASSIUM - SERUM 4.2 mmol/L (3.5-5.1)
[2019-02-20 07:20] LABS: PLATELET COUNT 146 10x3/uL (130-400)
--- NOTE | 2019-02-20 08:15 | NUR ---
PT RESTING IN BED EATING BREAKFAST TOLERATING WELL CALL LIGHT IN REACH WILL MONITER
[2019-02-20 08:31] VITALS: BP 157/54
--- NOTE | 2019-02-20 13:00 | NUR ---
PT DISCHARGED TO HOME VIA WHEELCHAIR DISCHARGE SUMMARY AND MEDS REVIEWED WITH PT NO QUESTIONS OR CONCERNS WENT HOME WITH PORTABLE O2
--- NOTE | 2019-02-20 14:09 | NUR ---
CASE MANAGEMENT NOTE Follow up appointment scheduled with Dr. Juarez Christianson on 02/25/19 @ [address] Garcia on 03/11/19. Home health referral sent to and accepted by [facility] to see this patient tomorrow. All communicated with patient and son. No other discharge needs at this time. Qing Schulte CLAIM PROFESSIONAL, [employer] [employer]
== END 2019-02-20 14:31 | disposition home health service (06) | DRG 947 ==
LOC: D.REHAB 21:56
PROVIDERS: ADMIT Emergency Medicine; ATTEND Emergency Medicine
DX: R53.81 Other malaise (principal); I21.4 Non-ST elevation (NSTEMI) myocardial infarction; J44.1 Chronic obstructive pulmonary disease with (acute) exacerbation; J96.11 Chronic respiratory failure with hypoxia; J90 Pleural effusion, not elsewhere classified; J43.9 Emphysema, unspecified; E78.5 Hyperlipidemia, unspecified; I25.10 Atherosclerotic heart disease of native coronary artery without angina pectoris; D64.9 Anemia, unspecified; I50.9 Heart failure, unspecified; I35.0 Nonrheumatic aortic (valve) stenosis; I10 Essential (primary) hypertension; K21.9 Gastro-esophageal reflux disease without esophagitis; I07.1 Rheumatic tricuspid insufficiency

== ENCOUNTER → 2019-03-06 12:42 | Outpatient (CLI) | payer MEDICARE, OTHER ==
[2019-02-10 09:07] VITALS: BMI 14.5
== END | disposition home or self-care (01) ==
LOC: D.US 12:42
PROVIDERS: ATTEND Internal Medicine Cardiovascular Disease
DX: I65.23 Occlusion and stenosis of bilateral carotid arteries (principal)

== ENCOUNTER 2019-06-27 14:13 | Inpatient (IN) | payer MEDICARE, OTHER ==
[~2019-06-27] VITALS: Ht 167.6 cm; Wt 43.2 kg
[2019-06-27 14:47] LABS: BASOPHILS 0.6 % (0-2); EOSINOPHILS 4.2 % (0-7); HEMATOCRIT 44.1 % (36.0-48.0); HEMOGLOBIN 14.2 g/dL (12-16); IMMATURE GRANULOCYTES 0.1 % (0-5); LYMPHOCYTES 19.6 % (15-50); MCH 28.7 pg (26.0-34.0); MCHC 32.2 g/dL (31.0-37.0); MCV 89.3 fL (80.0-100.0); MEAN PLATELET VOLUME 11.3 fL (7.4-10.4); MONOCYTES 5.2 % (2-11); NEUTROPHILS 70.3 % (40-80); PLATELET COUNT 127 10x3/uL (130-400); RBC 4.94 10x6/uL (4.00-5.40); RDW 14.5 % (11.5-14.5); WBC 6.7 10x3/uL (4.8-10.8)
[2019-06-27 14:53] LABS: CALC OSMOLALITY 285 mosm/kg (275-300); CARBON DIOXIDE 30.2 mmol/L (21.0-32.0); CHLORIDE - SERUM 106 mmol/L (98-107); GLUCOSE 101 mg/dL (74-106); POTASSIUM - SERUM 4.4 mmol/L (3.5-5.1); SODIUM 143 mmol/L (136-145); UREA NITROGEN 16 mg/dL (7-18); eGFR NON AFRICAN AMERICAN 56 mL/min (90-120)
[2019-06-27 15:07] LABS: APPEARANCE CLEAR (CLEAR); BILIRUBIN NEGATIVE (NEGATIVE); COLOR STRAW (YELLOW); GLUCOSE NEGATIVE (NEGATIVE); KETONE NEGATIVE (NEGATIVE); NITRITE NEGATIVE (NEGATIVE); PROTEIN 1+ mg/dL (NEGATIVE); SPECIFIC GRAVITY 1.005 (1.005-1.020); UROBILINOGEN NORMAL (NORMAL)
--- NOTE | 2019-06-27 15:07 | NUR ---
PATIENT REFUSED ABG
[2019-06-27 15:09] LABS: BACTERIA FEW /hpf (NEGATIVE); EPITHELIAL CELLS 0-5 /hpf (0-5); RED CELLS - URINE 0-5 /hpf (0-5)
[2019-06-27 15:10] LABS: ALBUMIN 3.7 g/dL (3.4-5.0); ALKALINE PHOSPHATASE 118 U/L (46-116); ALT (SGPT) 32 U/L (10-68); BILIRUBIN - TOTAL 0.42 mg/dL (0.2-1.3); CKMB 3.8 U/L (0.0-3.6); CREATINE KINASE 104 UL (21-215); PRO BNP 6079 pg/mL (0-450); PROTEIN - SERUM 6.9 g/dL (6.4-8.2)
[2019-06-27 15:11] LABS: TROPONIN-I < 0.017 ng/mL (0.000-0.060)
[2019-06-27 15:14] LABS: APTT 23.3 SECONDS (22.8-39.4); INR 0.95 (0.85-1.17); PROTIME 12.2 SECONDS (11.6-15.0)
--- NOTE | 2019-06-27 16:54 | NUR ---
RECEIVED REPORT FROM TABITHA IN ED. PATIENT TO UNIT SOON.
--- NOTE | 2019-06-27 17:05 | NUR ---
PATIENT ARRIVED TO UNIT VIA GERNEY AT THIS TIME.
--- NOTE | 2019-06-27 17:12 | MORECARE ---
CASE MANAGEMENT DISCHARGE SUMMARY PATIENT: RL SIU UNIT: [id number] ADM DATE: 06/27/19 AGE: 84 : 35 SEX: F ROOM/BED: D.2100 AUTHOR: ELIZA,DOC PHYSICIAN: REFERRING PHYSICIAN: JUAN GONZALEZ MD DATE OF SERVICE: 06/27/19 Discharge Plan Patient Name: RL SIU Facility: [facility]:[place] : 1935 Planned Disposition: Home Anticipated Discharge Date: 06/29/19 Discharge Date: Expected LOS: 2 Initial Reviewer: [email or web address] Initial Review Date: 06/27/2019 Generated: 06/27/19 6:11 pm DCP- Discharge Planning Updated by [email or web address]: Selene Stockton on 06/27/19 4:[address] DC PLAN: Return home with her son. ANTICIPATED DC NEEDS: Denied dc needs at time of assessment. CM met with patient to complete initial dc planning assessment. CM educated patient on the CM role and verbal consent given by patient to complete assessment. CM verified patient's address, phone number, and emergency contact phone numbers. Patient lives at home with her son. She reports she is able to care for herself at home. At discharge patient plans to return and feels this is a safe discharge. CM discussed availability of home health, rehab services, and medical equipment. Patient denied known discharge needs at this time. Patient reports her home environment is safe and her son takes care of her. She denied any issues of concern at her home. She denied having any problems obtaining or paying for her medications at home. Transportation provider at discharge will be her son. CM will continue to follow and will assist as needed with dc plans/needs. Selene Stockton RN, [facility] DCPIA - Discharge Planning Initial Assessment Updated by [email or web address]: Selene Stockton on 06/27/19 5:08 pm * Is the patient Alert and Oriented? Yes * How many steps to enter\exit or inside your home? none * PCP Dr. Christianson in [place]? * Pharmacy [facility] * Preadmission Environment Home with Family * ADLs Independent * Equipment Cane Nebulizer Oxygen * Other [facility] * List name and contact numbers for known caregivers / representatives who currently or will assist patient after discharge: Juan Siu - jaci - [phone] * Verbal permission to speak to the caregivers and representatives has been obtained from the patient. Yes * Community resources currently utilized None * Additional services required to return to the preadmission environment? No * Can the patient safely return to the preadmission environment? Yes * Has this patient been hospitalized within the prior 30 days at any hospital? No Patient Name: RL SIU Page [id number] at 1712 All edits/amendments must be made on the electronic document DICTATION DATE: 06/27/191710 STUD BEEF CATTLE FARMER: DIANELYS 06/27/191710 RPT#: [id number] [place] DATE: STATUS: ADM IN [facility] [address] [place] [address] END OF REPORT
--- NOTE | 2019-06-27 17:25 | NUR ---
PATIENT SITTING UP IN BED, BIPAP OFF AT THIS TIME FOR PATIENT TO CONSUME PM MEAL. PATIENT ON NASAL CANULA AT THIS TIME. PATIENT GIVEN A TIME LIMIT OF 5-10 MINUTES MAX TO EAT DINNER DUE TO RESP STATUS. PATIENT RESP INCREASING TO 41-44 WHILE ON BIPAP AND MUST REMIND PATIENT TO SLOW HER BREATHING DOWN.
[2019-06-27 17:35] VITALS: BP 117/57; BMI 15.6
--- NOTE | 2019-06-27 19:20 | NUR ---
RECEIVED PT. BIPAP ON AND RECEIVING UPDRAFT AT THIS TIME. A&O X3. RR IN THE 3Os, REMINDED PT TO SLOW HER BRESTHING DOWN. NO FURTHER NEEDS EXPRESSED. CALL LIGHT IN REACH. WILL CPOC.
[2019-06-27 20:08] VITALS: BP 136/53
--- NOTE | 2019-06-27 21:10 | NUR ---
PT RESTING IN HIGH-FOWLERS. BIPAP ON RR 24. NO S/S OF DISTRESS NOTED AT THIS TIME.
[2019-06-27 23:39] VITALS: BP 102/50
--- NOTE | 2019-06-28 02:14 | NUR ---
RECEIVED PT. PT UP IN BED BIPAP ON AT 100% RR 33. NO S/S OF IMMEDIATE DISTRESS NOTED. NEPHEW AT BEDSIDE. PT DENIES NEEDS AT THIS TIME. CALL LIGHT IN REACH. WILL CTM.
[2019-06-28 04:52] VITALS: BP 130/73
[2019-06-28 04:52] LABS: BASOPHILS 0 % (0-2); EOSINOPHILS 0 % (0-7); HEMATOCRIT 41.7 % (36.0-48.0); HEMOGLOBIN 13.1 g/dL (12-16); IMMATURE GRANULOCYTES 0.2 % (0-5); LYMPHOCYTES 8.8 % (15-50); MCH 28.5 pg (26.0-34.0); MCHC 31.4 g/dL (31.0-37.0); MCV 90.8 fL (80.0-100.0); MEAN PLATELET VOLUME 11.2 fL (7.4-10.4); MONOCYTES 1.2 % (2-11); NEUTROPHILS 89.8 % (40-80); PLATELET COUNT 141 10x3/uL (130-400); RBC 4.59 10x6/uL (4.00-5.40); RDW 14.4 % (11.5-14.5); WBC 5.9 10x3/uL (4.8-10.8)
[2019-06-28 05:19] LABS: ANION GAP 9.8 mmol/L (8-16); CALCIUM 8.9 mg/dL (8.5-10.1); CARBON DIOXIDE 29.8 mmol/L (21.0-32.0); MAGNESIUM - SERUM 2.1 mg/dL (1.8-2.4); POTASSIUM - SERUM 4.6 mmol/L (3.5-5.1)
--- NOTE | 2019-06-28 07:00 | NUR ---
RECEIVED REPORT. ASSUMED CARE OF PATIENT. CALL LIGHT WITHIN REACH. NO DISTRESS.
[2019-06-28 07:58] VITALS: BP 183/73
--- NOTE | 2019-06-28 08:47 | NUR ---
BIPAP OFF AT THIS TIME FOR PATIENT TO CONSUME AM MEAL. PATIENT UPSET THAT SHE IS ON AHA DIET. CALL LIGHT WITHIN REACH.
--- NOTE | 2019-06-28 09:55 | NUR ---
GOWN AND BED PAD CHANGED AFTER TAKING PATIENT OFF OF BEDPAN. PATIENT IS NOW BACK ON BIPAP. NO DISTRESS. CALL LIGHT WITHIN REACH.
[2019-06-28 11:59] VITALS: BP 143/78
--- NOTE | 2019-06-28 14:01 | NUR ---
SCDs APPLIED TO BILATERAL LOWER EXTREMITIES.
--- NOTE | 2019-06-28 16:20 | NUR ---
BIPAP REMOVED. SITTING UP IN BED. VISITOR AT BEDSIDE. CALL LIGHT WITHIN REACH. GIVING PATIENT 15 MINUTE BREAK.
[2019-06-28 20:25] VITALS: BP 135/49
[2019-06-29 00:45] VITALS: BP 141/57
[2019-06-29 04:21] LABS: BASOPHILS 0.1 % (0-2); EOSINOPHILS 0 % (0-7); HEMATOCRIT 39.9 % (36.0-48.0); HEMOGLOBIN 12.6 g/dL (12-16); IMMATURE GRANULOCYTES 0.2 % (0-5); LYMPHOCYTES 8.7 % (15-50); MCH 28.8 pg (26.0-34.0); MCHC 31.6 g/dL (31.0-37.0); MCV 91.1 fL (80.0-100.0); MEAN PLATELET VOLUME 11.4 fL (7.4-10.4); MONOCYTES 4.4 % (2-11); NEUTROPHILS 86.6 % (40-80); PLATELET COUNT 145 10x3/uL (130-400); RBC 4.38 10x6/uL (4.00-5.40); RDW 14.5 % (11.5-14.5)
[2019-06-29 04:28] LABS: ANION GAP 11.2 mmol/L (8-16); CALCIUM 8.7 mg/dL (8.5-10.1); CARBON DIOXIDE 28.5 mmol/L (21.0-32.0); CREATININE - SERUM 1.2 mg/dL (0.6-1.3); MAGNESIUM - SERUM 2.2 mg/dL (1.8-2.4); POTASSIUM - SERUM 4.7 mmol/L (3.5-5.1)
[2019-06-29 04:30] VITALS: BP 157/65
--- NOTE | 2019-06-29 06:50 | NUR ---
REPORT RECEIVED. SHE IS ALERT WITH BIPAP ON RATE OF 12 WITH O2 OF 40%. LEFT UPPER ARM WITH SALINE LOCK INTACT. RESP ARE WITH SLIGHT LABOR WHEN TRYING TO SPEAK BUT VOICE IS CLEAR. SHE IS FRAIL IN BODY CONDITION. BED IN LOWEST POSITION AND LOCKED CAREPLAN REVIEW DONE WITH SAFETY PRECAUTIONS IN PLACE. CL IN REACH
[2019-06-29 09:00] VITALS: BP 164/56
[2019-06-29 12:55] VITALS: Ht 167.6 cm; Wt 43.2 kg
[2019-06-29 14:38] VITALS: BP 123/58
--- NOTE | 2019-06-29 15:10 | NUR ---
OT NOTE: PT COMPLETED EOB SITTING WITH SBA. PT COMPLETED SUPINE TO SIT WITH CGA. PT STATED SHE FEELS DIZZY WHEN UPRIGHT. NURSING AWARE. PT COMPLETED BUE AROM AXS. PT COMPLETED FACE WASH AT EOB WITH SET UP. KENYON WILKINSON COTA
[2019-06-29 17:51] VITALS: BP 139/47
--- NOTE | 2019-06-29 19:30 | NUR ---
REPORT RECIEVED AND ROUNDING COMPLETE. PATIENT LAYING IN BED, HOB 30%. PATIENT HAS A HIGH FLOW NC WITH O2 AT 7L. PATIENT HAS A LEFT UPPER ARM PIV THAT IS SALINE LOCKED AT THIS TIME. PATIENT'S PIV NO SHOWING S/SX OF INFILTRATION OF INFECTION. PATIENT STATES NO NEEDS AT THIS TIME. PATIENT SHOWING NO S/SX OF DISTRESS. CALL LIGHT WITHN REACH AND BED IN LOWEST LOCKED POSITION.
[2019-06-29 20:45] VITALS: BP 145/65
[2019-06-30 00:46] VITALS: BP 135/74
--- NOTE | 2019-06-30 02:57 | NUR ---
I have reviewed this patient and I concur with the Shift Assessment completed by the Licensed Practical Nurse today this shift.
[2019-06-30 04:23] VITALS: BP 126/49
[2019-06-30 06:05] LABS: BASOPHILS 0.1 % (0-2); EOSINOPHILS 0 % (0-7); HEMATOCRIT 39.9 % (36.0-48.0); HEMOGLOBIN 12.8 g/dL (12-16); IMMATURE GRANULOCYTES 0.2 % (0-5); MCH 28.8 pg (26.0-34.0); MCHC 32.1 g/dL (31.0-37.0); MCV 89.7 fL (80.0-100.0); MEAN PLATELET VOLUME 11.4 fL (7.4-10.4); MONOCYTES 4.3 % (2-11); NEUTROPHILS 83.4 % (40-80); PLATELET COUNT 157 10x3/uL (130-400); RBC 4.45 10x6/uL (4.00-5.40); RDW 14.4 % (11.5-14.5); WBC 12.3 10x3/uL (4.8-10.8)
[2019-06-30 06:25] LABS: ANION GAP 9.5 mmol/L (8-16); CALCIUM 8.9 mg/dL (8.5-10.1); CARBON DIOXIDE 29.6 mmol/L (21.0-32.0); CREATININE - SERUM 1.4 mg/dL (0.6-1.3); MAGNESIUM - SERUM 2.3 mg/dL (1.8-2.4); POTASSIUM - SERUM 4.1 mmol/L (3.5-5.1)
--- NOTE | 2019-06-30 06:50 | NUR ---
REPORT RECEIVED. SHE IS SITTING UP IN BED SUPINE REQUEST WATER AND COFFEE AND IT WAS PROVIDED. O2 ON AT 7 L/M PER HIGHFLOW N/C. SHE IS SOB WITH EXERCTION BUT SLOWLY IMPROVING. SALINE LOCK IN LEFT UPPER ARM INTACT. BED IN LOWEST POSITION AND LOCKED. CAREPLAN REVIEW DONE WITH SAFETY PRECAUTIONS IN PLACE.
[2019-06-30 07:46] VITALS: BP 134/50
[2019-06-30 11:23] VITALS: BP 123/81
--- NOTE | 2019-06-30 14:42 | NUR ---
OT NOTE: PT REPORTED FEELING MUCH BETTER TODAY. PT ABLE TO AMB TO BATHROOM AND PERFORM ALL TOILETING WITHOUT ASSIST; SIMPLE GROOMING AND SINK HYGIENE WITH SPV. IN ROOM AMB WITH SPV. DELORES MA OTR/L
[2019-06-30 15:26] VITALS: BP 124/58
--- NOTE | 2019-06-30 16:01 | NUR ---
OT NOTE: PT COMPLETED FACE WASH WITH SET UP. PT COMPLETED HAIR GROOMING WITH SETUP. PT STATED SHE IS FEELING BETTER. PT COMPLETED TOILETING WITH CGA. PT COMPLETED BED MOB TASKS WITH CGA. PT COMPLETED ADL MOB WITH DARRELL Chamorro THANK YOU, MARYAN AYALA
[2019-06-30 20:00] VITALS: BP 100/58
[2019-07-01] VITALS: BP 150/68
[2019-07-01 04:00] VITALS: BP 146/52
[2019-07-01 05:04] LABS: BASOPHILS 0 % (0-2); EOSINOPHILS 0 % (0-7); HEMATOCRIT 42.6 % (36.0-48.0); HEMOGLOBIN 13.7 g/dL (12-16); IMMATURE GRANULOCYTES 0.2 % (0-5); LYMPHOCYTES 7.7 % (15-50); MCH 28.8 pg (26.0-34.0); MCHC 32.2 g/dL (31.0-37.0); MCV 89.7 fL (80.0-100.0); MEAN PLATELET VOLUME 11.3 fL (7.4-10.4); MONOCYTES 1.6 % (2-11); NEUTROPHILS 90.5 % (40-80); PLATELET COUNT 158 10x3/uL (130-400); RBC 4.75 10x6/uL (4.00-5.40); RDW 14.4 % (11.5-14.5)
[2019-07-01 05:08] LABS: WBC 8.3 10x3/uL (4.8-10.8)
[2019-07-01 05:15] LABS: CALCIUM 8.8 mg/dL (8.5-10.1); CARBON DIOXIDE 29.6 mmol/L (21.0-32.0); CREATININE - SERUM 1.1 mg/dL (0.6-1.3); MAGNESIUM - SERUM 2.1 mg/dL (1.8-2.4); POTASSIUM - SERUM 4.6 mmol/L (3.5-5.1)
--- NOTE | 2019-07-01 06:55 | NUR ---
REPORT RECEIVED. SHE IS LYING SUPINE IN BED. AWAKE ALERT. SHORTNESS OF BREATH IS IMPOVING IF SHE TALKS ALOT SHE DOES GET SHORT OF BREATH CONTINES ON O2 AT 6 L/M HIGHFLOW. STATES SHE RESTED SOME LAST NIGHT. CL IN REACH BED IN LOWEST POSITION AND LOCKED. CAREPLAN REVIEW DONE WITH SAFETY PRECAUTIONS NOTED
[2019-07-01 10:16] VITALS: BP 151/67
--- NOTE | 2019-07-01 12:49 | NUR ---
OT NOTE: AMB TO BATHROOM WITH CGA; TOILETING, HYGIENE, AND CLOTHING MGMT WITH CGA. IN ROOM AMB TO SINK WITH CGA. ABLE TO STAND AT SINK TO PERFORM GROOMING AND HYGIENE TASKS. AMB INTO HALLWAY WITH CGA X APPROX 125-150 FT WITH 1 REST BREAK AND 02 AT 6L. PT ABLE TO PERFORM ALL TRANSFERS WITH CGA; WANTED TO SIT UP ON EOB FOR SEVERAL MIN PRIOR TO LIEING DOWN. PT THEN ABLE TO GET BACK INTO BED INDEP. PT DOING VERY WELL, HOWEVER, FATIGUES QUICKLY. DELORES MA, OTR/L
--- NOTE | 2019-07-01 13:39 | NUR ---
Nutrition Follow-up: Eating well. Requests that Boost not be sent on every tray; states they make her stool hard. Diet: Cardiac, Boost TID PO intake: 75-100% Wt: 95# (99.2# on 06/29) Last BM: 06/30 Labs noted: Glu 160 Meds noted: Lasix, Solumedrol -Continue current diet as tolerated. -Boost PRN. -RD following.
--- NOTE | 2019-07-01 15:35 | NUR ---
OT NOTE: PT COMPLETED ADL MOB TASKS WITH CGA. PT COMPLETED SUPINE TO SIT WITH SBA. PT COMPLETED FACE WASH WITH SET UP. PT COMPLETED UE AROM AXS. THANK YOU, MARYAN AYALA
[2019-07-01 15:50] VITALS: BP 139/52
--- NOTE | 2019-07-01 19:15 | NUR ---
PT SITTING UP IN BED WATCHING TV. CL IN REACH. A/O X4. DENIES NEEDS AT THIS TIME. BED IN LOW SIDE RAILS X2. RESP EVEN AND UNLABORED. ON 2L AT 6L VIA HF NC. WILL CONTINUE TO MONITOR.
[2019-07-01 20:18] VITALS: BP 133/49
[2019-07-02] VITALS: BP 133/60
--- NOTE | 2019-07-02 02:16 | NUR ---
I have reviewed this patient and I concur with the Shift Assessment completed by the Licensed Practical Nurse today this shift.
[2019-07-02 05:17] LABS: BASOPHILS 0 % (0-2); EOSINOPHILS 0 % (0-7); HEMATOCRIT 45.2 % (36.0-48.0); HEMOGLOBIN 14.7 g/dL (12-16); IMMATURE GRANULOCYTES 0.2 % (0-5); LYMPHOCYTES 7.1 % (15-50); MCH 29.2 pg (26.0-34.0); MCHC 32.5 g/dL (31.0-37.0); MCV 89.7 fL (80.0-100.0); MEAN PLATELET VOLUME 11.4 fL (7.4-10.4); MONOCYTES 2.6 % (2-11); NEUTROPHILS 90.1 % (40-80); PLATELET COUNT 163 10x3/uL (130-400); RBC 5.04 10x6/uL (4.00-5.40); RDW 14.4 % (11.5-14.5)
[2019-07-02 05:28] LABS: ANION GAP 11.3 mmol/L (8-16); CALCIUM 8.7 mg/dL (8.5-10.1); CREATININE - SERUM 1.2 mg/dL (0.6-1.3); MAGNESIUM - SERUM 1.9 mg/dL (1.8-2.4); POTASSIUM - SERUM 4.3 mmol/L (3.5-5.1)
[2019-07-02 05:30] LABS: WBC 13.3 10x3/uL (4.8-10.8)
--- NOTE | 2019-07-02 07:35 | NUR ---
PATIENT IS RESTING QUIETLY ON HER RIGHT SIDE AT THIS TIME. DENIES ANY NEEDS AT THIS TIME.
[2019-07-02 08:00] VITALS: BP 84/62
--- NOTE | 2019-07-02 12:02 | NUR ---
OT NOTE: PT DOING WELL; IN ROOM AMB WITH CGA; TOILETING AND SINK HYGIENE WITH CGA/SBA. ABLE TO STEPHAN SOCKS WITH SET UP; FUNCTIONAL TRANSFERS WITH CGA; AMB INTO HALLWAY WITH CGA. FUNCTIONAL ENDURANCE IMPROVING DAILY. DELORES MA, OTR/L
[2019-07-02 12:17] VITALS: BP 131/56
--- NOTE | 2019-07-02 15:26 | NUR ---
PATIENT REPORTS THAT SHE DOES NOT LIKE THE PHLIBOTOMIST WHO TERRA HER BLOOD SAMPLES LAST NIGHT. SHE IS REQUESTING KIMBERLY. I TALKED TO KIMBERLY, AND WILL PASS ALONG TO THE ONCOMING SHIFT.
[2019-07-02 16:32] VITALS: BP 141/65
--- NOTE | 2019-07-02 19:15 | NUR ---
RECEIVED REPORT, WILL ASSUME CARE OF PT, PT IS HAVING BREATHING TREATMENT, DENIES ANY NEEDS, BED IS LOW, SRX2, CALL LIGHT IN REACH, WILL CONTINUE PLAN OF CARE
--- NOTE | 2019-07-02 19:56 | NUR ---
OT NOTE: PT COMPLETED ADL MOB AND BED MOB TASKS WITH SBA/CGA. PT COMPLETED TOILETING TASKS WITH SBA. THANK YOU,MARYAN AYALA
[2019-07-02 20:00] VITALS: BP 120/52
[2019-07-03] VITALS: BP 115/59
--- NOTE | 2019-07-03 02:42 | NUR ---
I have reviewed this patient and I concur with the Shift Assessment completed by the Licensed Practical Nurse today this shift.
[2019-07-03 04:00] VITALS: BP 119/52
[2019-07-03 07:16] LABS: BASOPHILS 0.1 % (0-2); EOSINOPHILS 0 % (0-7); HEMATOCRIT 46.1 % (36.0-48.0); HEMOGLOBIN 14.8 g/dL (12-16); IMMATURE GRANULOCYTES 0.2 % (0-5); LYMPHOCYTES 12.7 % (15-50); MCH 28.7 pg (26.0-34.0); MCHC 32.1 g/dL (31.0-37.0); MCV 89.3 fL (80.0-100.0); MEAN PLATELET VOLUME 11.2 fL (7.4-10.4); MONOCYTES 5.7 % (2-11); NEUTROPHILS 81.3 % (40-80); PLATELET COUNT 164 10x3/uL (130-400); RBC 5.16 10x6/uL (4.00-5.40); RDW 14.5 % (11.5-14.5); WBC 10.8 10x3/uL (4.8-10.8)
--- NOTE | 2019-07-03 07:30 | NUR ---
A/A/OX4. ANSWERS ALL QUESTIONS CORRECTLY. DENIES ANY PAIN OR DISCOMFORT AND NO REQUESTS VOICED. 02 ON PER N/C AT 4 L/M WITH NO DISTRESS NOTED. ASSESSMENT COMPLETED AND WILL CONTINUE POC.
[2019-07-03 07:33] LABS: ALBUMIN 3.2 g/dL (3.4-5.0); ANION GAP 11.4 mmol/L (8-16); BILIRUBIN - TOTAL 0.36 mg/dL (0.2-1.3); CALCIUM 9.1 mg/dL (8.5-10.1); CARBON DIOXIDE 29.7 mmol/L (21.0-32.0); CREATININE - SERUM 1.1 mg/dL (0.6-1.3); POTASSIUM - SERUM 4.1 mmol/L (3.5-5.1); PROTEIN - SERUM 6.3 g/dL (6.4-8.2)
[2019-07-03 08:55] VITALS: BP 132/53
--- NOTE | 2019-07-03 13:09 | MORECARE ---
CASE MANAGEMENT DISCHARGE SUMMARY PATIENT: RL SIU UNIT: [id number] ADM DATE: 06/27/19 AGE: 84 : 35 SEX: F ROOM/BED: D.8980 AUTHOR: ELIZA,DOC PHYSICIAN: REFERRING PHYSICIAN: JUAN GONZALEZ MD DATE OF SERVICE: 07/03/19 Discharge Plan Patient Name: RL SIU Facility: [facility]:[place] : 1935 Planned Disposition: Home Anticipated Discharge Date: 06/29/19 Discharge Date: Expected LOS: 2 Initial Reviewer: [email or web address] Initial Review Date: 06/27/2019 Generated: 07/03/19 2:08 pm Comments DCP- Discharge Planning Updated by [email or web address]: Clint Curry on 07/03/19 12:[address] Patient Name: RL SIU Encounter No: [id number] : 1935 Primary Insurance: MEDICARE A & B Anticipated DC Date: 06-29-2019 Planned Disposition: Home DCP follow-up note: CM SPOKE TO DUSTIN MATTHEW, SHE HAS TALKED TO PT WHO WILL GO TO INPATIENT REHAB IF HER SON SAYS SHE NEEDS TO, HE IS ON HIS WAY TO HOSPITAL NOW. DUSTIN MATTHEW HAS TALKED TO RADHA OF INPATIENT REHAB WHO INFORMED CM THAT THEY WILL ACCEPT PT TODAY IF PT IS WILLING FOR REHAB. CM PROVIDED AND DISCUSSED IMPORTANT MESSAGE FROM MEDICARE. WAITING ON PT'S DECISION FOR INPATIENT REHAB OR HOME. IF PT AGREES WITH INPATIENT REHAB AFTER SPEAKING WITH SON, NOTIFY INPATIENT REHAB AT [facility] THEY PLAN TO ACCEPT TODAY IF PT IS WILLING. Clint Curry, CASE MANAGEMENT DCP- Discharge Planning Updated by [email or web address]: Selene Stockton on 06/27/19 4:[address] DC PLAN: Return home with her son. ANTICIPATED DC NEEDS: Denied dc needs at time of assessment. CM met with patient to complete initial dc planning assessment. CM educated patient on the CM role and verbal consent given by patient to complete assessment. CM verified patient's address, phone number, and emergency contact phone numbers. Patient lives at home with her son. She reports she is able to care for herself at home. At discharge patient plans to return and feels this is a safe discharge. CM discussed availability of home health, rehab services, and medical equipment. Patient denied known discharge needs at this time. Patient reports her home environment is safe and her son takes care of her. She denied any issues of concern at her home. She denied having any problems obtaining or paying for her medications at home. Transportation provider at discharge will be her son. CM will continue to follow and will assist as needed with dc plans/needs. Selene Stockton RN, [facility] DCPIA - Discharge Planning Initial Assessment Updated by [id number]: Selene Stockton on 06/27/19 5:08 pm * Is the patient Alert and Oriented? Yes * How many steps to enter\exit or inside your home? none * PCP Dr. Christianson in [place]? * Pharmacy [facility] * Preadmission Environment Home with Family * ADLs Independent * Equipment Cane Nebulizer Oxygen * Other Equipment has portable also - Elvia is dme provider. * List name and contact numbers for known caregivers / representatives who currently or will assist patient after discharge: Juan Siu - son - [phone] * Verbal permission to speak to the caregivers and representatives has been obtained from the patient. Yes * Community resources currently utilized None * Additional services required to return to the preadmission environment? No * Can the patient safely return to the preadmission environment? Yes * Has this patient been hospitalized within the prior 30 days at any hospital? No Coverage Notice Reviewer: [email or web address] - Clint Curry Notice Issued Date-Time: 07/03/2019 12:55 Notice Type: IM Discharge Notice Notice Delivered To: Patient Relationship to Patient: Call Center Professional Name: Delivery Method: HAND - Hand Delivered Samra Days: Prior Verbal Notification: Recipient Understood Notice: Yes Recipient Signature: Yes Med Rec Note Co-signed by Attending: Coverage Notice Comment: Last DP export: 06/27/19 4:12 Patient Name: RL SIU Page [phone] at 1309 All edits/amendments must be made on the electronic document DICTATION DATE: 07/03/191307 GEOPHYSICAL COMPUTER: DIANELYS 07/03/19 1308 RPT#: [id number] DC DATE: STATUS: ADM IN [facility] [address] [place] [address] END OF REPORT
[2019-07-03] MEDS ORDERED: PREDNISONE10 MG PO (13:12)
[2019-07-03] MEDS ORDERED: LEVOFLOXACIN500 MG PO (13:13)
--- NOTE | 2019-07-03 13:32 | NUR ---
[place] QUIT LINE INFO GIVEN TO PATIENT UPON ADMIT SHE STATED SHE WANTED TO QUIT. PATIENT NOW REFUSED INFO.
[2019-07-03 13:48] VITALS: BP 137/69
--- NOTE | 2019-07-03 15:23 | NUR ---
DISCHARGE INSTRUCTIONS REVIEWED WITH PT AND VERBALIZES UNDERSTANDING WITH NO QUESTIONS. SL REMOVED FROM UPPER LEFT ARM WITHOUT DIFFICULTY, CATH TIP INTACT. LEFT FLOOR VIA W/C WITH ALL PERSONAL BELONGINGS AND LEFT FACILITY VIA PRIVATE VEHICLE WITH HER SON.
--- NOTE | 2019-07-03 17:13 | NUR ---
I have reviewed this patient and I concur with the Shift Assessment completed by the Licensed Practical Nurse today this shift.
--- NOTE | 2019-07-04 15:03 | MORECARE ---
CASE MANAGEMENT DISCHARGE SUMMARY PATIENT: RL SIU UNIT: [id number] ADM DATE: 06/27/19 AGE: 84 : 35 SEX: F ROOM/BED: D.8260 AUTHOR: MARIA ISABEL KAY PHYSICIAN: REFERRING PHYSICIAN: JUAN GONZALEZ MD DATE OF SERVICE: 07/04/19 Discharge Plan Patient Name: RL SIU Facility: [facility]:[place] : 1935 Planned Disposition: Home Anticipated Discharge Date: 06/29/19 Discharge Date: 07/03/2019 Expected LOS: 2 Initial Reviewer: [email or web address] Initial Review Date: 06/27/2019 Generated: 07/04/19 4:03 pm Comments DCP- Discharge Planning Updated by [email or web address]: Clint Curry on 07/03/19 12:[address] Patient Name: RL SIU Encounter No: [id number] : 1935 Primary Insurance: MEDICARE A & B Anticipated DC Date: 06-29-2019 Planned Disposition: Home DCP follow-up note: CM SPOKE TO DUSTIN MATTHEW, SHE HAS TALKED TO PT WHO WILL GO TO INPATIENT REHAB IF HER SON SAYS SHE NEEDS TO, HE IS ON HIS WAY TO HOSPITAL NOW. DUSTIN MATTHEW HAS TALKED TO RADHA OF INPATIENT REHAB WHO INFORMED CM THAT THEY WILL ACCEPT PT TODAY IF PT IS WILLING FOR REHAB. CM PROVIDED AND DISCUSSED IMPORTANT MESSAGE FROM MEDICARE. WAITING ON PT'S DECISION FOR INPATIENT REHAB OR HOME. IF PT AGREES WITH INPATIENT REHAB AFTER SPEAKING WITH SON, NOTIFY INPATIENT REHAB AT [facility] THEY PLAN TO ACCEPT TODAY IF PT IS WILLING. Clint Curry, CASE MANAGEMENT DCP- Discharge Planning Updated by [id number]: Selene Stockton on 06/27/19 4:[address] DC PLAN: Return home with her son. ANTICIPATED DC NEEDS: Denied dc needs at time of assessment. CM met with patient to complete initial dc planning assessment. CM educated patient on the CM role and verbal consent given by patient to complete assessment. CM verified patient's address, phone number, and emergency contact phone numbers. Patient lives at home with her son. She reports she is able to care for herself at home. At discharge patient plans to return and feels this is a safe discharge. CM discussed availability of home health, rehab services, and medical equipment. Patient denied known discharge needs at this time. Patient reports her home environment is safe and her son takes care of her. She denied any issues of concern at her home. She denied having any problems obtaining or paying for her medications at home. Transportation provider at discharge will be her son. CM will continue to follow and will assist as needed with dc plans/needs. Selene Stockton RN, [facility] DCPIA - Discharge Planning Initial Assessment Updated by [email or web address]: Selene Stockton on 06/27/19 5:08 pm * Is the patient Alert and Oriented? Yes * How many steps to enter\exit or inside your home? none * PCP Dr. Christianson in [place]? * Pharmacy [facility] * Preadmission Environment Home with Family * ADLs Independent * Equipment Cane Nebulizer Oxygen * Other Equipment has portable also - Elvia is dme provider. * List name and contact numbers for known caregivers / representatives who currently or will assist patient after discharge: Juan Siu - son - [phone] * Verbal permission to speak to the caregivers and representatives has been obtained from the patient. Yes * Community resources currently utilized None * Additional services required to return to the preadmission environment? No * Can the patient safely return to the preadmission environment? Yes * Has this patient been hospitalized within the prior 30 days at any hospital? No Coverage Notice Reviewer: [id number] Italo Curry Notice Issued Date-Time: 07/03/2019 12:55 Notice Type: IM Discharge Notice Notice Delivered To: Patient Relationship to Patient: Pastry Sous Chef Name: Delivery Method: HAND - Hand Delivered Samra Days: Prior Verbal Notification: Recipient Understood Notice: Yes Recipient Signature: Yes Med Rec Note Co-signed by Attending: Coverage Notice Comment: Last DP export: 07/03/19 12:09 Patient Name: RL SIU Page 56015 at 1503 All edits/amendments must be made on the electronic document DICTATION DATE: 07/04/19 1503 PERSONAL DRIVER: DIAENLYS 07/04/19 1503 RPT#: [id number] DC DATE:07/03/19 STATUS: DIS IN [facility] [address] [place] [address] END OF REPORT
== END 2019-07-03 16:11 | disposition home or self-care (01) | DRG 189 ==
LOC: D.ER 14:13 → D.M2 16:21
PROVIDERS: Emergency Medicine; Family Medicine; Family Medicine Adult Medicine; ADMIT Family Medicine; ATTEND Family Medicine
DX: J96.21 Acute and chronic respiratory failure with hypoxia (principal); I50.33 Acute on chronic diastolic (congestive) heart failure; E43 Unspecified severe protein-calorie malnutrition; N39.0 Urinary tract infection, site not specified; F17.213 Nicotine dependence, cigarettes, with withdrawal; Z68.1 Body mass index [BMI] 19.9 or less, adult; I11.0 Hypertensive heart disease with heart failure; E78.5 Hyperlipidemia, unspecified; G35 Multiple sclerosis; I08.3 Combined rheumatic disorders of mitral, aortic and tricuspid valves; K21.9 Gastro-esophageal reflux disease without esophagitis; J43.9 Emphysema, unspecified; J20.9 Acute bronchitis, unspecified; I25.10 Atherosclerotic heart disease of native coronary artery without angina pectoris; I73.9 Peripheral vascular disease, unspecified

== ENCOUNTER → 2019-08-17 23:16 | Outpatient (CLI) | payer MEDICARE, OTHER ==
[2019-06-29 12:55] VITALS: BMI 16.0
[~2019-08-17 23:16] MED LIST changes: +LEVOFLOXACIN500 MG PO; +PREDNISONE10 MG PO
[2019-08-17 23:46] LABS: APPEARANCE CLEAR (CLEAR); BILIRUBIN NEGATIVE (NEGATIVE); COLOR YELLOW (YELLOW); GLUCOSE NEGATIVE (NEGATIVE); KETONE NEGATIVE (NEGATIVE); NITRITE NEGATIVE (NEGATIVE); PROTEIN NEGATIVE (NEGATIVE); SPECIFIC GRAVITY 1.005 (1.005-1.020); UROBILINOGEN NORMAL (NORMAL)
[2019-08-17 23:48] LABS: BACTERIA FEW /hpf (NEGATIVE); EPITHELIAL CELLS 0-5 /hpf (0-5); RED CELLS - URINE 0-5 /hpf (0-5); WHITE CELLS - URINE 0-5 /hpf (NEGATIVE)
== END | disposition home or self-care (01) ==
LOC: D.LABREF 23:16
PROVIDERS: ATTEND General Practice
DX: R30.0 Dysuria (principal)

== ENCOUNTER 2019-10-07 15:01 | Inpatient (IN) | payer MEDICARE, OTHER ==
[~2019-10-07] VITALS: Ht 167.6 cm; Wt 38.0 kg
--- NOTE | 2019-10-07 15:30 | NUR ---
PT REFUSING BLOOD GAS AT THIS TIME.
[2019-10-07 15:59] LABS: BASOPHILS 0.5 % (0-2); HEMATOCRIT 41.1 % (36.0-48.0); IMMATURE GRANULOCYTES 0.3 % (0-5); LYMPHOCYTES 7.7 % (15-50); MCHC 31.6 g/dL (31.0-37.0); MCV 91.7 fL (80.0-100.0); MEAN PLATELET VOLUME 10.8 fL (7.4-10.4); MONOCYTES 4.6 % (2-11); NEUTROPHILS 83.9 % (40-80); RBC 4.48 10x6/uL (4.00-5.40); WBC 9.9 10x3/uL (4.8-10.8)
[2019-10-07 16:01] LABS: PLATELET COUNT 261 10x3/uL (130-400)
[2019-10-07 16:13] LABS: APTT 28.5 SECONDS (22.8-39.4); INR 0.92 (0.85-1.17); PROTIME 12.3 SECONDS (11.6-15.0)
[2019-10-07 16:50] VITALS: BP 133/96
[2019-10-07 17:02] LABS: ALBUMIN 3.4 g/dL (3.4-5.0); ALKALINE PHOSPHATASE 101 U/L (30-120); ALT (SGPT) 17 U/L (10-68); BILIRUBIN - TOTAL 0.58 mg/dL (0.2-1.3); CALC OSMOLALITY 288 mosm/kg (275-300); CALCIUM 9.3 mg/dL (8.5-10.1); CARBON DIOXIDE 32.4 mmol/L (21.0-32.0); CHLORIDE - SERUM 106 mmol/L (98-107); CKMB 2.9 U/L (0.0-3.6); CREATINE KINASE 77 UL (21-215); CREATININE - SERUM 1.1 mg/dL (0.6-1.3); GLUCOSE 127 mg/dL (74-106); POTASSIUM - SERUM 4.7 mmol/L (3.5-5.1); PRO BNP 6494 pg/mL (0-450); PROTEIN - SERUM 6.9 g/dL (6.4-8.2); SODIUM 143 mmol/L (136-145); UREA NITROGEN 17 mg/dL (7-18); eGFR NON AFRICAN AMERICAN 50 mL/min (90-120)
--- NOTE | 2019-10-07 17:06 | NUR ---
ELEVATED TROPONIN REPORTED BY LAB - ER PROVIDER NOTIFIED.
--- NOTE | 2019-10-07 17:43 | NUR ---
KAYODE WHYTE AT BEDSIDE AT THIS TIME.
--- NOTE | 2019-10-07 18:35 | NUR ---
ROCEPHIN STOPPED AT 183
[2019-10-07 18:36] LABS: CKMB 2.6 U/L (0.0-3.6); CREATINE KINASE 63 UL (21-215)
--- NOTE | 2019-10-07 18:59 | NUR ---
AWAITING EVS AT THIS TIME FOR ROOM. WILL TRANSFER WHEN PT ROOM IS CLEAN
--- NOTE | 2019-10-07 19:15 | NUR ---
PT NOT TO FLOOR AT THIS TIME.
--- NOTE | 2019-10-07 19:19 | NUR ---
PT TRANSPORTED TO ROOM AT THIS TIME VIA STRETCHER
[2019-10-07 20:00] VITALS: BP 134/68
[2019-10-07 20:35] VITALS: BP 134/68; BMI 15.1
[2019-10-08] VITALS: BP 152/55
[2019-10-08 00:06] LABS: CKMB 2.7 U/L (0.0-3.6); CREATINE KINASE 86 UL (21-215)
[2019-10-08 00:08] LABS: TROPONIN-I 0.092 ng/mL (0.000-0.060)
[2019-10-08 04:00] VITALS: BP 133/58
[2019-10-08 06:19] LABS: BASOPHILS 0.5 % (0-2); EOSINOPHILS 6.5 % (0-7); HEMATOCRIT 36.3 % (36.0-48.0); HEMOGLOBIN 11.4 g/dL (12-16); IMMATURE GRANULOCYTES 0.3 % (0-5); LYMPHOCYTES 13.4 % (15-50); MCH 28.9 pg (26.0-34.0); MCHC 31.4 g/dL (31.0-37.0); MCV 92.1 fL (80.0-100.0); MEAN PLATELET VOLUME 10.8 fL (7.4-10.4); MONOCYTES 8.8 % (2-11); NEUTROPHILS 70.5 % (40-80); RBC 3.94 10x6/uL (4.00-5.40); RDW 15.1 % (11.5-14.5); WBC 7.9 10x3/uL (4.8-10.8)
[2019-10-08 06:22] LABS: APTT 25.2 SECONDS (22.8-39.4); INR 0.98 (0.85-1.17)
[2019-10-08 06:30] LABS: D-DIMER-QUANTITATIVE 2.33 ug/mLFEU (0.20-0.54)
[2019-10-08 06:40] LABS: CALC OSMOLALITY 291 mosm/kg (275-300); CALCIUM 8.8 mg/dL (8.5-10.1); CARBON DIOXIDE 31.4 mmol/L (21.0-32.0); CHLORIDE - SERUM 109 mmol/L (98-107); CKMB 1.8 U/L (0.0-3.6); CREATINE KINASE 59 UL (21-215); GLUCOSE 87 mg/dL (74-106); PHOSPHOROUS 3.9 mg/dL (2.5-4.9); SODIUM 146 mmol/L (136-145); UREA NITROGEN 17 mg/dL (7-18); eGFR NON AFRICAN AMERICAN 56 mL/min (90-120)
[2019-10-08 06:54] LABS: POTASSIUM - SERUM 3.8 mmol/L (3.5-5.1)
[2019-10-08 06:56] LABS: PLATELET COUNT 196 10x3/uL (130-400)
--- NOTE | 2019-10-08 07:30 | NUR ---
SITTING UP IN BED. SOB UPON EXERTION. ASSISTED TO BATHROOM. VOID X1. ASSISTED BACK TO BED. CALL LIGHT WITHIN REACH. BED IN LOWEST POSITION. DENIES NEEDS OR PAIN AT THIS TIME.
[2019-10-08 10:00] VITALS: BP 118/41
[2019-10-08 14:01] VITALS: Ht 167.6 cm; Wt 38.0 kg
[2019-10-08 14:04] VITALS: BP 142/55
[2019-10-08 16:15] LABS: BILIRUBIN NEGATIVE (NEGATIVE); GLUCOSE NEGATIVE (NEGATIVE); KETONE NEGATIVE (NEGATIVE); NITRITE NEGATIVE (NEGATIVE); SPECIFIC GRAVITY 1.015 (1.005-1.020); UROBILINOGEN NORMAL (NORMAL)
[2019-10-08 18:03] VITALS: BP 128/70
--- NOTE | 2019-10-08 19:55 | NUR ---
REPORT RECIEVED AND ROUNDING COMPLETE. PATIENT LAYING IN BED IN HIGH FOWLERS, SON AT BEDSIDE. PATIENT COMPLAINS OF IV HURTING, CHECKED BOTH RIGHT AND LEFT FOREARM/WRIST PIV BOTH INFILTRATED. PLACED 20 GAUGE, 1 STICK TO THE BACK OF THE LEFT FOREARM. REMOVED BOTH FOREARM PIV'S, CATHS INTACT AND PATIENT TAOLERATED WELL. PATIENT IS WEARING NASAL CANNULA WITH 02 AT 4L WHICH IS HER HOME DOSE. PATIENT SHOWS NO S/XS OF DISTRESS AT THIS TIME. CALL LIGHT WITHIN REACH AND BED IN LOWEST LOCKED POSITION.
[2019-10-08 20:30] VITALS: BP 136/50
[2019-10-09 00:30] VITALS: BP 112/44
[2019-10-09 04:30] VITALS: BP 114/47
[2019-10-09 05:31] LABS: BASOPHILS 0.3 % (0-2); EOSINOPHILS 0.1 % (0-7); HEMATOCRIT 34.8 % (36.0-48.0); IMMATURE GRANULOCYTES 0.1 % (0-5); LYMPHOCYTES 12.3 % (15-50); MCH 28.8 pg (26.0-34.0); MCHC 31.6 g/dL (31.0-37.0); MCV 91.1 fL (80.0-100.0); MEAN PLATELET VOLUME 10.6 fL (7.4-10.4); MONOCYTES 6.2 % (2-11); PLATELET COUNT 205 10x3/uL (130-400); RBC 3.82 10x6/uL (4.00-5.40); RDW 14.7 % (11.5-14.5); WBC 6.8 10x3/uL (4.8-10.8)
[2019-10-09 06:02] LABS: ANION GAP 9.5 mmol/L (8-16); CALCIUM 8.3 mg/dL (8.5-10.1); CARBON DIOXIDE 31.7 mmol/L (21.0-32.0); MAGNESIUM - SERUM 1.9 mg/dL (1.8-2.4); PHOSPHOROUS 4.1 mg/dL (2.5-4.9); POTASSIUM - SERUM 4.2 mmol/L (3.5-5.1)
--- NOTE | 2019-10-09 07:20 | NUR ---
ASSESSMENT DONE, HERMINIOIES ADRIA
[2019-10-09 10:46] VITALS: BP 152/46
--- NOTE | 2019-10-09 16:09 | NUR ---
I CONCUR WITH CNC SUPERVISOR ASSESSMENT OF THIS PATIENT
[2019-10-09 20:00] VITALS: BP 131/58
--- NOTE | 2019-10-09 20:00 | NUR ---
LAYING IN BED IN SUPINE POSITION, MERCEDES HAS EYES CLOSED BREATHING SHALLOW BUT EVEN, WEARNG NASAL CANNULA WITH O2 AT 4L. NO DISTRESS NOTED. PATIENT HAS A LEFT FOREARM PIV, PIV IS LEAKING. PATIENT AROUSED EASILY AND STATES THAT PIV IS PAINFUL AT THIS TIME. WILL RESITE PIV. STATES NO NEEDS AT THIS TIME. CALL LIGHT WITHIN REACH AND BED IN LOWEST LOCKED POSITION.
[2019-10-10] VITALS: BP 144/87
[2019-10-10 04:00] VITALS: BP 154/69
--- NOTE | 2019-10-10 04:14 | NUR ---
I have reviewed this patient and I concur with the Shift Assessment completed by the Licensed Practical Nurse today this shift.
[2019-10-10 06:12] LABS: BASOPHILS 0.1 % (0-2); EOSINOPHILS 0 % (0-7); HEMATOCRIT 38.8 % (36.0-48.0); HEMOGLOBIN 12.3 g/dL (12-16); IMMATURE GRANULOCYTES 0.2 % (0-5); LYMPHOCYTES 8.6 % (15-50); MCH 28.7 pg (26.0-34.0); MCHC 31.7 g/dL (31.0-37.0); MCV 90.4 fL (80.0-100.0); MEAN PLATELET VOLUME 10.7 fL (7.4-10.4); MONOCYTES 1.8 % (2-11); NEUTROPHILS 89.3 % (40-80); PLATELET COUNT 231 10x3/uL (130-400); RBC 4.29 10x6/uL (4.00-5.40); RDW 14.7 % (11.5-14.5); WBC 8.5 10x3/uL (4.8-10.8)
[2019-10-10 06:28] LABS: ANION GAP 10.1 mmol/L (8-16); CALCIUM 8.9 mg/dL (8.5-10.1); CARBON DIOXIDE 30.6 mmol/L (21.0-32.0); CREATININE - SERUM 0.9 mg/dL (0.6-1.3); MAGNESIUM - SERUM 1.9 mg/dL (1.8-2.4); PHOSPHOROUS 3.5 mg/dL (2.5-4.9); POTASSIUM - SERUM 4.7 mmol/L (3.5-5.1)
--- NOTE | 2019-10-10 07:13 | NUR ---
ASSESSMENT DONE. DENIES NEEDS
[2019-10-10 09:07] VITALS: BP 168/65
[2019-10-10 13:35] VITALS: BP 152/72
--- NOTE | 2019-10-10 17:22 | NUR ---
WITHOUT CHANGES OR DISTRESS NOTED AT THIS TIME DENIES NEEDS
--- NOTE | 2019-10-10 18:49 | NUR ---
I have reviewed this patient and I concur with the Shift Assessment completed by the Licensed Practical Nurse today this shift.
--- NOTE | 2019-10-10 19:30 | NUR ---
REPORT RECIEVED AND INITIAL ROUNDS COMPLETED. PT RESTING IN BED. C/O IV TO LFA LEAKING, DEMANDING IVF BE STOPPED. IV SITE ASSESSED. SITE IS WEEPING. IV DISCONTINUED AT THIS TIME.
[2019-10-10 20:00] VITALS: BP 128/65
[2019-10-11] VITALS: BP 143/53
--- NOTE | 2019-10-11 01:16 | NUR ---
RESTING IN BED WITH NO DISTRESS. NEW IV SITE TO RFA AND ABT INFUSING. CPOC.
[2019-10-11 04:00] VITALS: BP 134/43
[2019-10-11 05:48] LABS: BASOPHILS 0.2 % (0-2); EOSINOPHILS 0 % (0-7); HEMATOCRIT 43.3 % (36.0-48.0); HEMOGLOBIN 13.8 g/dL (12-16); IMMATURE GRANULOCYTES 0.3 % (0-5); LYMPHOCYTES 14.2 % (15-50); MCH 28.9 pg (26.0-34.0); MCHC 31.9 g/dL (31.0-37.0); MCV 90.8 fL (80.0-100.0); MONOCYTES 4.3 % (2-11); RBC 4.77 10x6/uL (4.00-5.40); RDW 14.6 % (11.5-14.5)
[2019-10-11 05:52] LABS: PLATELET COUNT 287 10x3/uL (130-400); WBC 12.2 10x3/uL (4.8-10.8)
[2019-10-11 06:05] LABS: ANION GAP 10.3 mmol/L (8-16); CALCIUM 9.2 mg/dL (8.5-10.1); CREATININE - SERUM 0.9 mg/dL (0.6-1.3); MAGNESIUM - SERUM 1.9 mg/dL (1.8-2.4); PHOSPHOROUS 3.9 mg/dL (2.5-4.9); POTASSIUM - SERUM 4.3 mmol/L (3.5-5.1)
--- NOTE | 2019-10-11 07:20 | NUR ---
RECIEVE REPORT. RESTING IN BED WITH EYES CLOSED. RESPIRATIONS NONLABORED. CONTINUE PLAN OF CARE AND SAFETY PRECAUTIONS.
[2019-10-11 07:30] VITALS: BP 173/53
[2019-10-11 11:30] VITALS: BP 157/46
[2019-10-11 15:30] VITALS: BP 161/53
--- NOTE | 2019-10-11 19:30 | NUR ---
RECEIVED REPORT, WILL ASSUME CARE OF PT, DENIES ANY NEEDS AT THIS TIME, BES IS LOW, SRX2, CALL LIGHT IN REACH, WILL CONTINUE PLAN OF CARE
[2019-10-11 20:00] VITALS: BP 144/58
[2019-10-12 00:01] VITALS: BP 124/58
[2019-10-12 07:04] LABS: BASOPHILS 0.3 % (0-2); EOSINOPHILS 0 % (0-7); HEMATOCRIT 38.2 % (36.0-48.0); HEMOGLOBIN 12.2 g/dL (12-16); IMMATURE GRANULOCYTES 0.4 % (0-5); MCH 28.5 pg (26.0-34.0); MCHC 31.9 g/dL (31.0-37.0); MCV 89.3 fL (80.0-100.0); MEAN PLATELET VOLUME 10.5 fL (7.4-10.4); MONOCYTES 5.1 % (2-11); NEUTROPHILS 78.2 % (40-80); PLATELET COUNT 276 10x3/uL (130-400); RBC 4.28 10x6/uL (4.00-5.40); RDW 14.6 % (11.5-14.5)
[2019-10-12 07:15] LABS: WBC 15.8 10x3/uL (4.8-10.8)
[2019-10-12 07:29] LABS: ANION GAP 12.2 mmol/L (8-16); CALCIUM 9.2 mg/dL (8.5-10.1); CARBON DIOXIDE 29.3 mmol/L (21.0-32.0); CREATININE - SERUM 1.1 mg/dL (0.6-1.3); MAGNESIUM - SERUM 1.9 mg/dL (1.8-2.4); PHOSPHOROUS 4.1 mg/dL (2.5-4.9); POTASSIUM - SERUM 4.5 mmol/L (3.5-5.1)
--- NOTE | 2019-10-12 07:30 | NUR ---
PT RECEIVED AWAKE AND ALERT, NEEDING ASSIST TO BATHROOM. VOIDING WITHOUT PROBLEMS. ASSIST BACK TO BED. ARMS WITH BRUISING THROUGHOUT.
[2019-10-12 09:52] VITALS: BP 142/49
[2019-10-12 13:58] VITALS: BP 161/79
--- NOTE | 2019-10-12 14:29 | NUR ---
Nutrition Follow-up: Pt sleeping soundly at time of visit this AM. Chart reviewed. Diet: Cardiac PO intake: 74% avg x 7 meals Wt: 100# (10/10); 93.4# (10/07) Labs noted: Glu 124 Meds noted: Solumedrol, Lasix, Protonix -Encourage PO intake and honor food preferences within diet restrictions. -Offer nutrition supplements with meals. -Monitor wt; noted daily wts ordered. -RD following.
[2019-10-12 17:40] VITALS: BP 151/77
--- NOTE | 2019-10-12 19:12 | NUR ---
EVENING ROUDNS COMPLETE. PT SITTING UP IN BED. NO SIGNS OF DISTRESS. PT DENIES ANY PAIN OR NEEDS AT THIS TIME. CL IN REACH, BED IN LOWEST POSITION.
--- NOTE | 2019-10-12 20:22 | NUR ---
OT NOTE: PT COMPLETED SUPINE TO SIT WITH SPV/SBA. PT COMPLETED SIT TO STAND WITH SBA. PT STATED SHE GETS DIZZY. PT COMPLETED UE AROM AXS. PT COOPERATIVE AND REQUIRED REST BREAKS. PT EDUCATED TO USE CALL LIGHT. [phone] THANK YOU,MARYAN AYALA
[2019-10-12 22:23] VITALS: BP 177/55
[2019-10-13 00:48] VITALS: BP 122/67
[2019-10-13 05:22] VITALS: BP 142/78
[2019-10-13 06:18] LABS: BASOPHILS 0.1 % (0-2); EOSINOPHILS 0 % (0-7); HEMATOCRIT 41.2 % (36.0-48.0); HEMOGLOBIN 13.4 g/dL (12-16); IMMATURE GRANULOCYTES 0.4 % (0-5); LYMPHOCYTES 12.3 % (15-50); MCH 28.6 pg (26.0-34.0); MCHC 32.5 g/dL (31.0-37.0); MCV 87.8 fL (80.0-100.0); MONOCYTES 3.2 % (2-11); PLATELET COUNT 316 10x3/uL (130-400); RBC 4.69 10x6/uL (4.00-5.40); RDW 14.6 % (11.5-14.5); WBC 14.9 10x3/uL (4.8-10.8)
[2019-10-13 06:47] LABS: ANION GAP 13.3 mmol/L (8-16); CALCIUM 9.1 mg/dL (8.5-10.1); CARBON DIOXIDE 28.9 mmol/L (21.0-32.0); CREATININE - SERUM 1.3 mg/dL (0.6-1.3); POTASSIUM - SERUM 4.2 mmol/L (3.5-5.1)
--- NOTE | 2019-10-13 08:24 | NUR ---
RIGHT UPPER ARM 22G IV INFILTRATED DC'D WITH CATH INTACT.
--- NOTE | 2019-10-13 08:38 | NUR ---
TOMY VASCULAR ACCESS NURSE INSERTED A 22G IV IN LEFT WRIST.
--- NOTE | 2019-10-13 10:11 | NUR ---
PT C/O IV PLACEMENT. DR. JOSEPH STATES TO ME TO SL PT AFTER SHE RECEIVED ABX. I VERBALIZED UNDERSTANDING.
[2019-10-13 11:02] VITALS: BP 100/52
[2019-10-13] MEDS ORDERED: PREDNISONE10 MG PO (13:49)
[2019-10-13] MEDS ORDERED: OMNICEF300 MG PO (13:50)
[2019-10-13] MEDS ORDERED: PROTONIX40 MG PO (13:50)
--- NOTE | 2019-10-13 14:14 | NUR ---
PT DEMANDING FOR IV TO BE TAKEN OUT. LEFT WRIST 20G IV DC'D WITH CATH INTACT. TELEMETRY DC'D PT HAS DC ORDERS
--- NOTE | 2019-10-13 15:55 | NUR ---
I have reviewed this patient and I concur with the Shift Assessment completed by the Licensed Practical Nurse today this shift.
--- NOTE | 2019-10-13 16:05 | NUR ---
DISCHARGE INSTRUCTIONS GIVEN AND EXPLAINED TO PT. PT HAS NO FURTHER QUESTIONS. CCHART COPY SIGNED. PT TAKEN DOWN VIA WC BY ELIS ND LEFT WITH SON IN PERSONAL VEHICLE.
--- NOTE | 2019-10-13 16:46 | MORECARE ---
CASE MANAGEMENT DISCHARGE SUMMARY PATIENT: RL SIU UNIT: [id number] ADM DATE: 10/07/19 AGE: 84 : 35 SEX: F ROOM/BED: D.2130 AUTHOR: MARIA ISABEL KAY PHYSICIAN: REFERRING PHYSICIAN: SRAVANI ANDERSEN MD DATE OF SERVICE: 10/13/19 Discharge Plan Patient Name: RL SIU Facility: [facility]:[place] : 1935 Planned Disposition: Home with Home Health Anticipated Discharge Date: 10/13/19 Discharge Date: 10/13/2019 Expected LOS: 6 Initial Reviewer: ROBIN Initial Review Date: 10/13/2019 Generated: 10/13/19 5:46 pm DCPIA - Discharge Planning Initial Assessment Updated by [email or web address]: Clint Curry on 10/13/19 4:42 pm * Is the patient Alert and Oriented? Yes * How many steps to enter\exit or inside your home? NONE * PCP DR JIMENEZ * Pharmacy [facility] * Preadmission Environment Home with Family * ADLs Independent * Equipment Cane Nebulizer Oxygen * Other Equipment HOME AND PORTABLE OXYGEN * List name and contact numbers for known caregivers / representatives who currently or will assist patient after discharge: KAREN SIU, SON, * Verbal permission to speak to the caregivers and representatives has been obtained from the patient. N/A * Community resources currently utilized Home Health * Please name any agencies selected above. [facility] * Additional services required to return to the preadmission environment? No * Can the patient safely return to the preadmission environment? Yes * Has this patient been hospitalized within the prior 30 days at any hospital? No External Providers External Provider: [facility] Next Contact Date: 10/13/2019 Service Request Date: Service Type: Resolution: Reviewer: Comments: Patient Name: RL SIU Page 46128 at 1646 All edits/amendments must be made on the electronic document DICTATION DATE: 10/13/19 1646 [employer] ARCHITECT: DIANELYS 10/13/196 RPT#: [id number] DC DATE:10/13/19 STATUS: DIS IN [facility] [address] [place] [address] END OF REPORT
--- NOTE | 2019-10-13 16:56 | MORECARE ---
CASE MANAGEMENT DISCHARGE SUMMARY PATIENT: RL SIU UNIT: [id number] ADM DATE: 10/07/19 AGE: 84 : 35 SEX: F ROOM/BED: D.2130 AUTHOR: ELIZA,DOC PHYSICIAN: REFERRING PHYSICIAN: SRAVANI ANDERSEN MD DATE OF SERVICE: 10/13/19 Discharge Plan Patient Name: RL SIU Facility: [facility]:[place] : 1935 Planned Disposition: Home with Home Health Anticipated Discharge Date: 10/13/19 Discharge Date: 10/13/2019 Expected LOS: 6 Initial Reviewer: [email or web address] Initial Review Date: 10/13/2019 Generated: 10/13/19 5:55 pm DCP- Discharge Planning Updated by [email or web address]: Clint Curry on 10/13/19 3:[address] Patient Name: RL SIU Admission Status: Elective Accout number: [id number] Admission Date: 10-07-2019 : 1935 Admission Diagnosis: Attending: SRAVANI BAER Current LOS: 6 Anticipated DC Date: 10-13-2019 Planned Disposition: Home with Home Health Primary Insurance: MEDICARE A & B PLANNED EXTERAL PROVIDER: [facility] Discharge Planning Comments: CM MET WITH PT IN ROOM TO DISCUSS DISCHARGE PLANNING AND NEEDS. PT REPORTS LIVING AT HOME INDEPENDENTLY WITH HER ADULT SON. PT HAS CANE, NEBLULIZER AND HOEM / PORTABLE OXYGEN FROM [facility]. PT HAS [facility]. CM DISCUSSED AVAILABILITY OF HOME HEALTH, REHAB SERVICES AND MEDICAL EQUIPMENT. PT DENIES DISCHARGE NEEDS OF REHAB OR OTHER MEDICAL EQUIPMENT. PT HAS CALLED HER SON TO PICK HER UP AND WANTS RESUMPTION OF HOME HEALTH. CHOICE SIGNED. IMPORTANT MESSAGE FROM MEDICARE PROVIDED AND EXPLAINED. CM CALLED [facility], , SPOKE TO LIZETH AND PROVIDED REFERRAL INFORMATION, FAXED REFERRAL AND DISCHARGE TO [facility] AT [phone]. DIRECTOR DERMATOLOGY NURSE AND PT NOTIFIED. PT NOTIFIED AND DENIES FURTHER DISCHARGE NEEDS. Barrel Endshake Adjuster: Clint Curry DCPIA - Discharge Planning Initial Assessment Updated by [email or web address]: Clint Curry on 10/13/19 4:42 pm * Is the patient Alert and Oriented? Yes * How many steps to enter\exit or inside your home? NONE * PCP DR JIMENEZ * Pharmacy [facility] * Preadmission Environment Home with Family * ADLs Independent * Equipment Cane Nebulizer Oxygen * Other Equipment HOME AND PORTABLE OXYGEN * List name and contact numbers for known caregivers / representatives who currently or will assist patient after discharge: KAREN SIU, SON, * Verbal permission to speak to the caregivers and representatives has been obtained from the patient. N/A * Community resources currently utilized Home Health * Please name any agencies selected above. [facility] * Additional services required to return to the preadmission environment? No * Can the patient safely return to the preadmission environment? Yes * Has this patient been hospitalized within the prior 30 days at any hospital? No Coverage Notice Reviewer: [id number] Curry Notice Issued Date-Time: 10/13/2019 15:00 Notice Type: IM Discharge Notice Notice Delivered To: Patient Relationship to Patient: Job Press Operator Name: Delivery Method: HAND - Hand Delivered Samra Days: Prior Verbal Notification: Recipient Understood Notice: Yes Recipient Signature: Yes Med Rec Note Co-signed by Attending: Coverage Notice Comment: Reviewer: [id number] Curry Notice Issued Date-Time: 10/13/2019 15:00 Notice Type: Patient Choice Letter Notice Delivered To: Patient Relationship to Patient: Job Press Operator Name: Delivery Method: HAND - Hand Delivered Samra Days: Prior Verbal Notification: Recipient Understood Notice: Yes Recipient Signature: Yes Med Rec Note Co-signed by Attending: Coverage Notice Comment: HOME HEALTH RESUMPTION Last DP export: 10/13/19 3:46 p Patient Name: RL SIU Page 85909 at 1656 All edits/amendments must be made on the electronic document DICTATION DATE: 10/13/191654 DATA ENTRY EMAIL PROCESSOR: DIANELYS 10/13/191654 RPT#: [id number] DC DATE:10/13/19 STATUS: DIS IN [facility] [address] [place] [address] END OF REPORT
== END 2019-10-13 16:17 | disposition home health service (06) | DRG 193 ==
LOC: D.ER 15:01 → D.M2 16:31
PROVIDERS: Emergency Medicine; Internal Medicine Nephrology; ADMIT Family Medicine; ATTEND Family Medicine
DX: J18.9 Pneumonia, unspecified organism (principal); J96.21 Acute and chronic respiratory failure with hypoxia; I50.33 Acute on chronic diastolic (congestive) heart failure; F17.213 Nicotine dependence, cigarettes, with withdrawal; I24.8 Other forms of acute ischemic heart disease; N17.9 Acute kidney failure, unspecified; I11.0 Hypertensive heart disease with heart failure; E78.5 Hyperlipidemia, unspecified; I73.9 Peripheral vascular disease, unspecified; J43.9 Emphysema, unspecified; I48.91 Unspecified atrial fibrillation; R04.0 Epistaxis; I25.10 Atherosclerotic heart disease of native coronary artery without angina pectoris; G35 Multiple sclerosis; I71.4 Abdominal aortic aneurysm, without rupture; M19.90 Unspecified osteoarthritis, unspecified site; K21.9 Gastro-esophageal reflux disease without esophagitis

== ENCOUNTER 2019-11-09 11:54 | Inpatient (IN) | payer MEDICARE, OTHER ==
[~2019-11-09] VITALS: Ht 167.6 cm; Wt 43.1 kg
--- NOTE | ~2019-11-09 | HEMODYNAMI ---
PATIENT:RL SIU MEDICAL RECORD: [id number] : 35 LOCATION:D.MS Paul2217 ADMISSION DATE: 11/09/19 Generatedon:11/10/201911:23 Patient name: RL SIU Patient #: [id number] SSN: [id number] : 1935 Date of study: Page: Of Hemodynamic Procedure Report Patient Data Patient Demographics Procedure consent was obtained First Name: RL Gender: Female Last Name: SALBADOR : 1935 Middle Initial: LUCIO Age: 84 year(s) Patient #: [id number] Race: SSN: [id number] Additional ID: [id number] Contact details Address: [address] [place] [address] State: [place] City: [place] Zip code: [address] Past Medical History Allergies Allergen Reaction Date Comments Reported Other allergy 02/04/2019 Contrast, PCN, ASA, Adhesives. Other allergy 11/10/2019 IODINATED CONTRAST- IV DYE Admission Admission Data Admission Date: 11/09/2019 Admission Time: 16:01 Room #: D.2217 [facility] #: [id number] Lab Results Lab Result Date: 11/10/2019 Lab Result Time: 0:00 Biochemistry Name Units Result Min Max BUN mg/dl 24 --(----)-* 7 18 Creatinine mg/dl 1.3 --(---*)-- 0.6 1.3 eGFR ml/min 41 *-(----)-- 90 120 NONAFRICAN CBC Name Units Result Min Max Hematocrit % 39 *-(----)-- 42 54 Hemoglobin g/dl 12.1 *-(----)-- 13.5 17.5 Procedure Procedure Types Cath Procedure Diagnostic Procedure LHC LHC w/Coronaries Procedure Description Procedure Staff Name Function Anderson Lopez MD Performing Physician Rita Fuller RT Ship Loader Vero Jacobson RT Monitor Gerri Montilla RT Scrub Mona Reyez RN Nurse Hemodynamics Rest Pre Cath Intra NCS Post Cath Procedure Log Time Note 10:58:18 Informed consent obtained and on chart 10:59:27 Procedure Status Urgent Heart Cath (IP). 10:59:28 Time tracking: Regular hours (M-F 7:00 - 5:00) 10:59:32 Plan of Care:Hemodynamics will remain stable., Cardiac rhythm will remain stable., Comfort level will be maintained., Respiratory function will remain adequate., Patient/ family verbilizes understanding of procedure., Procedure tolerated without complication., Recovers from procedure without complications.. 10:59:43 H&P Date Dictated: 11/10/2019 ER History on chart.. 11:00:09 Patient allergic to Other allergyIODINATED CONTRAST- IV DYE 11:01:26 Lab Result : BUN 24 mg/dl 11:21:55 Procedure delayed due to: PT HAS REFUSED PROCEDURE WHEN TECH AND NURSE WH=ENT TO GET HER. 11:22:00 PT HAS REFUSED HEART CATH PROCEDURE, DR LOPEZ NOTIFIED AND WILL CHART . Signature Audit [place] Stage Time Signature Unsigned Intra-Procedure 11/10/2019 Vero Jacobson 11:23:25 AM RT(R) Intra-Procedure 11/10/2019 Anderson Lopez MD 11:23:54 AM [facility] [address] [place] [address]
[~2019-11-09 11:54] MED LIST changes: +OMNICEF300 MG PO; +PROTONIX40 MG PO
[2019-11-09 13:02] LABS: CALC OSMOLALITY 279 mosm/kg (275-300); CALCIUM 8.6 mg/dL (8.5-10.1); CARBON DIOXIDE 34.8 mmol/L (21.0-32.0); CHLORIDE - SERUM 103 mmol/L (98-107); CREATININE - SERUM 1.2 mg/dL (0.6-1.3); GLUCOSE 111 mg/dL (74-106); POTASSIUM - SERUM 5.3 mmol/L (3.5-5.1); SODIUM 140 mmol/L (136-145); UREA NITROGEN 12 mg/dL (7-18); eGFR NON AFRICAN AMERICAN 45 mL/min (90-120)
[2019-11-09 13:03] LABS: APTT 26.2 SECONDS (22.8-39.4); INR 0.92 (0.85-1.17); PROTIME 12.4 SECONDS (11.6-15.0)
[2019-11-09 13:11] LABS: D-DIMER-QUANTITATIVE 16.33 ug/mLFEU (0.20-0.54)
[2019-11-09 13:33] LABS: ALBUMIN 3.1 g/dL (3.4-5.0); ALKALINE PHOSPHATASE 112 U/L (30-120); ALT (SGPT) 52 U/L (10-68); BILIRUBIN - TOTAL 0.39 mg/dL (0.2-1.3); C-REACTIVE PROTEIN 1.3 mg/dL (0.0-0.9); CKMB 6.9 U/L (0.0-3.6); CREATINE KINASE 111 UL (21-215); FERRITIN 133 ng/mL (3-244); MAGNESIUM - SERUM 1.8 mg/dL (1.8-2.4); PRO BNP 10261 pg/mL (0-450); PROTEIN - SERUM 6.9 g/dL (6.4-8.2)
[2019-11-09 13:38] LABS: TROPONIN-I 0.636 ng/mL (0.000-0.060)
[2019-11-09 14:00] VITALS: BP 136/46
[2019-11-09 15:00] VITALS: BP 133/53
[2019-11-09 15:09] LABS: BASOPHILS 0.6 % (0-2); EOSINOPHILS 0.4 % (0-7); HEMATOCRIT 42.7 % (36.0-48.0); HEMOGLOBIN 12.7 g/dL (12-16); IMMATURE GRANULOCYTES 0.2 % (0-5); LYMPHOCYTES 8.6 % (15-50); MCH 28.3 pg (26.0-34.0); MCHC 29.7 g/dL (31.0-37.0); MCV 95.3 fL (80.0-100.0); MEAN PLATELET VOLUME 10.5 fL (7.4-10.4); MONOCYTES 4.1 % (2-11); NEUTROPHILS 86.1 % (40-80); PLATELET COUNT 255 10x3/uL (130-400); RBC 4.48 10x6/uL (4.00-5.40); WBC 10.3 10x3/uL (4.8-10.8)
[2019-11-09 16:00] VITALS: BP 149/72
--- NOTE | 2019-11-09 17:00 | NUR ---
ATTEMPTED TO DRAW BLOOD, UNSUCCESSFUL.
[2019-11-09 17:09] VITALS: BP 148/57
--- NOTE | 2019-11-09 17:10 | NUR ---
REPORT TO CHRISTY HERR.
--- NOTE | 2019-11-09 17:30 | NUR ---
ATTEMPTED FOR BLOOD DRAW AGAIN WITH NO SUCCESS.
--- NOTE | 2019-11-09 17:33 | NUR ---
PT TO ROOM 2217 AT THIS TIME.
[2019-11-09 19:55] LABS: ERYTHROCYTE SEDIMENTATION RATE 10 mm/hr (0-30)
[2019-11-09 20:00] VITALS: BP 158/84
--- NOTE | 2019-11-09 20:00 | NUR ---
PT SITTING UP IN BED, RESPIRATIONS LABORED 26/MIN. AOX4. OCCASIONAL COUGH, STATES SHE IS NOT COUGHING ANYTHING UP. O2 88% ON 4L/NC. INCREASED TO 5L. CALLED RESP. PT NAUSEOUS, STATES SHE CANNOT EAT HER FOOD. EMESIS BAG GIVEN. COMPLAINTS OF LEFT UPPER ARM PAIN. COLD PACK APPLIED TO ARM. CALLED KAYODE ASKEW APN TO UPDATE ABOUT PT STATUS AND LACTIC 2.4 AND OTHER ABNORMAL LABS. KAYODE TO COME SEE PT. WILL CTM
--- NOTE | 2019-11-09 20:30 | NUR ---
ABGS AND LUNG PERFUSION SCAN ORDERED. ABGS OBTAINED BY STELLA, KAYODE WEAVERN NOTIFIED.
--- NOTE | 2019-11-09 21:00 | NUR ---
TELEMETRY PLACED ON PT. MONITORS CALLED STATING PT IS HAVING QRS CHANGED AND ST ELEVATION. CALLED [facility] HIGH TENSION TESTER, EKG ORDERED ONCE LUNG SCAN COMPLETE
--- NOTE | 2019-11-09 21:20 | NUR ---
PT TAKEN FOR LUNG SCAN AT THIS TIME
--- NOTE | 2019-11-09 21:40 | NUR ---
EKG OBTAINED. ABNORMAL RESULTS CALLED TO KAYODE ASKEW APN. KAYODE TO BEDSIDE TO READ EKG
--- NOTE | 2019-11-09 21:45 | NUR ---
KAYODE ASKEW APN READ EKG. STATES TO GET CARDIAC ENZYMES ORDERED AT 2200 AND CALL WITH RESULTS. CARDIOLOGY CONSULT ORDERED.
--- NOTE | 2019-11-09 22:00 | NUR ---
MEDS GIVEN AT THIS TIME WITHOUT DIFFICULTY. INFORMED PT WE NEED URINE SAMPLE, HAT PLACED IN BEDSIDE COMMODE. PT VERBALIZED UNDERSTANDING. CONTINUES TO BE SOB, STATES SHE IS NOT FEELING BETTER BUT NOT WORSE. DENIES CHEST PAIN. NO LEFT ARM PAIN AT THIS TIME. NO NAUSEA. WILL CTM
[2019-11-09 23:18] LABS: CKMB 367.1 U/L (0.0-3.6); CREATINE KINASE 2503 UL (21-215); TROPONIN-I 95.728 ng/mL (0.000-0.060)
--- NOTE | 2019-11-09 23:30 | NUR ---
CARDIAC LAB RESULTS CALLED TO KAYODE ASKEW APN. STATES TO CALL DR MARTEL AND UPDATE ON PT STATUS, LAB RESULTS, AND LUNG PERFUSION SCAN RESULTS.
--- NOTE | 2019-11-09 23:40 | NUR ---
SPOKE WITH DR MARTEL. ALL LAB AND TEST RESULTS STATED AND UPDATED ON PT STATUS AT THIS TIME. STATED TO GIVE LOVENOX IF NOT ALREADY GIVEN. 40MG LOVENOX WAS GIVEN AT 2200. STATES TO MONITOR PT CLOSELY AND IF RESP/CARDIAC STATUS CHANGES TO CALL BACK, IF NOT HE WOULD SEE PT IN AM.
--- NOTE | 2019-11-09 23:45 | NUR ---
KAYODE ASKEW APN CALLED ORDERING TO OBTAIN EKG AT MIDNIGHT. UPDATED ABOUT SPEAKING WITH DR MARTEL. NO OTHER ORDERS AT THIS TIME.
[2019-11-10] VITALS: BP 101/74
[2019-11-10 00:13] VITALS: BMI 15.3
--- NOTE | 2019-11-10 00:15 | NUR ---
EKG SHOWING ACUTE GA/STEMI. CALLED AND SPOKE WITH KAYODE ASKEW APN WHO THEN CAME TO LOOK AT EKG. ASPIRIN ORDERED AND GIVEN. KAYODE SPOKE WITH DR MARTEL AT THIS TIME. NO NEW ORDERS, CONT TO MONITOR PT STATUS AND CALL BACK IF PT HAS CHEST PAIN OR CONDITION WORSENS
--- NOTE | 2019-11-10 01:30 | NUR ---
PT STATES SHE IS FEELING A LITTLE BETTER AT THIS TIME. NO CHEST OR ARM PAIN. NO NAUSEA. DENIES NEEDS. CL IN REACH, WILL CTM
[2019-11-10] MEDS ORDERED: GABAPENTIN100 MG PO (02:43)
[2019-11-10] MEDS ORDERED: LOTENSIN 10 MG10 MG PO (02:44)
[2019-11-10 04:00] VITALS: BP 120/66
--- NOTE | 2019-11-10 04:00 | NUR ---
EKG DONE AT THIS TIME, PLACED ON CHART. PT STATES SHE IS FEELING SLIGHTLY BETTER. NO PAIN OR COMPLAINTS AT THIS TIME. CL IN REACH, WILL CTM
[2019-11-10 05:18] LABS: BASOPHILS 0.2 % (0-2); EOSINOPHILS 0 % (0-7); HEMOGLOBIN 12.1 g/dL (12-16); IMMATURE GRANULOCYTES 0.2 % (0-5); LYMPHOCYTES 15.6 % (15-50); MCH 28.4 pg (26.0-34.0); MEAN PLATELET VOLUME 10.8 fL (7.4-10.4); MONOCYTES 3.3 % (2-11); NEUTROPHILS 80.7 % (40-80); PLATELET COUNT 261 10x3/uL (130-400); RBC 4.26 10x6/uL (4.00-5.40); RDW 14.7 % (11.5-14.5)
--- NOTE | 2019-11-10 05:21 | NUR ---
ASSISTED PT TO BEDSIDE TO COMMODE AND BACK TO BED. PT SOB WITH EXERTION. NO PAIN. SLIGHTLY DIZZY UPON STANDING. URINE SAMPLE COLLECTED. WILL CTM
[2019-11-10 05:27] LABS: MCV 91.5 fL (80.0-100.0); WBC 6.5 10x3/uL (4.8-10.8)
[2019-11-10 06:06] LABS: BILIRUBIN NEGATIVE (NEGATIVE); GLUCOSE NEGATIVE (NEGATIVE); KETONE NEGATIVE (NEGATIVE); NITRITE NEGATIVE (NEGATIVE); SPECIFIC GRAVITY 1.015 (1.005-1.020); UROBILINOGEN NORMAL (NORMAL)
[2019-11-10 06:48] LABS: ALBUMIN 3.2 g/dL (3.4-5.0); ALKALINE PHOSPHATASE 107 U/L (30-120); BILIRUBIN - TOTAL 0.37 mg/dL (0.2-1.3); CALCIUM 8.8 mg/dL (8.5-10.1); CARBON DIOXIDE 31.7 mmol/L (21.0-32.0); CHLORIDE - SERUM 98 mmol/L (98-107); CREATININE - SERUM 1.3 mg/dL (0.6-1.3); MAGNESIUM - SERUM 1.8 mg/dL (1.8-2.4); PHOSPHOROUS 4.5 mg/dL (2.5-4.9); PROTEIN - SERUM 6.9 g/dL (6.4-8.2); SODIUM 136 mmol/L (136-145); eGFR NON AFRICAN AMERICAN 41 mL/min (90-120)
[2019-11-10 06:49] LABS: ALT (SGPT) 87 U/L (10-68); CALC OSMOLALITY 279 mosm/kg (275-300); CKMB 465.3 U/L (0.0-3.6); CREATINE KINASE 3259 UL (21-215); GLUCOSE 174 mg/dL (74-106); POTASSIUM - SERUM 4.3 mmol/L (3.5-5.1); UREA NITROGEN 24 mg/dL (7-18)
--- NOTE | 2019-11-10 07:41 | NUR ---
CALLED DR MARTEL ABOUT PATIENTS CARDIAC ENZYMES. WELL THE CONVERSATION THE PATIENT HAD WITH ME ABOUT NOT WANTING TO HAVE SURGERY, THAT SHE HAS 2 TIMES OFF OF ANESTHESIA, AND THAT SHE HASN'T HAD ANYTHING TO EAT SINCE SHE HAS BEEN HERE. WANTS TO LEAVE AND GO BACK HOME. WANTS HER SON INVOLVED IN HER TREATMENT. DR DENT ADVISED THAT HE WOULD BE OVER SOON AND THAT SHE DOES HAVE AORTIC STENOSIS.
[2019-11-10 07:47] VITALS: BP 131/81
[2019-11-10 10:11] VITALS: BMI 15.3
[2019-11-10 10:27] VITALS: Ht 167.6 cm; Wt 43.1 kg
[2019-11-10 10:48] LABS: CHOL - HDL RATIO 2.1 ratio (2.3-4.1); LDL-HDL RATIO 0.9 ratio (1.5-3.5)
--- NOTE | 2019-11-10 11:30 | NUR ---
PATIENT REFUSED HEART CATH. TAHMINA IN ROOM NOW.
[2019-11-10 11:45] LABS: CKMB 383.1 U/L (0.0-3.6); CREATINE KINASE 2648 UL (21-215)
[2019-11-10 12:13] VITALS: BP 107/74
[2019-11-10 16:14] VITALS: BP 136/80
--- NOTE | 2019-11-10 16:55 | NUR ---
TELEMETRY CALLED STATED PATIENT HAD A RUN OF 15 VTACH. CALLED MIRELA BRIDGES APN. SHE WANTED A K AND MAG DRAWN AND ADVISED TO START CORDARONE 200 MG BID.
[2019-11-10 17:35] LABS: MAGNESIUM - SERUM 1.8 mg/dL (1.8-2.4); POTASSIUM - SERUM 4.1 mmol/L (3.5-5.1)
--- NOTE | 2019-11-10 18:01 | NUR ---
PAGED Ruddy PEDERSEN APN ABOUT K AND MAG LEVELS.
--- NOTE | 2019-11-10 19:30 | NUR ---
PT SITTING UP IN BED, AOX4. RESP SLIGHTLY LABORED ON 5L/NC. VSS. IV LEFT AC SL. SKIN TEAR TO RIGHT WRIST COVERED IN TEGADERM. TELE IN PLACE. DENIES NEEDS AT THIS TIME. CL IN REACH, WILL CTM
[2019-11-10 21:55] VITALS: BP 136/68
--- NOTE | 2019-11-10 22:30 | NUR ---
IV LEFT AC INFILTRATED. REMOVED WITH CATHETER INTACT. 22G IV RESITED TO RIGHT FA X2 ATTEMPTS
[2019-11-11 00:55] VITALS: BP 106/62
[2019-11-11 05:25] LABS: BASOPHILS 0.1 % (0-2); EOSINOPHILS 0 % (0-7); HEMATOCRIT 39.3 % (36.0-48.0); HEMOGLOBIN 12.4 g/dL (12-16); IMMATURE GRANULOCYTES 0.1 % (0-5); LYMPHOCYTES 7.2 % (15-50); MCH 28.1 pg (26.0-34.0); MCHC 31.6 g/dL (31.0-37.0); MEAN PLATELET VOLUME 10.8 fL (7.4-10.4); MONOCYTES 2.1 % (2-11); NEUTROPHILS 90.5 % (40-80); PLATELET COUNT 256 10x3/uL (130-400); RBC 4.41 10x6/uL (4.00-5.40); RDW 14.8 % (11.5-14.5)
[2019-11-11 05:43] LABS: ALBUMIN 2.9 g/dL (3.4-5.0); ANION GAP 11.9 mmol/L (8-16); BILIRUBIN - TOTAL 0.36 mg/dL (0.2-1.3); CALCIUM 8.5 mg/dL (8.5-10.1); CREATININE - SERUM 1.4 mg/dL (0.6-1.3); MAGNESIUM - SERUM 1.8 mg/dL (1.8-2.4); PHOSPHOROUS 4.3 mg/dL (2.5-4.9); POTASSIUM - SERUM 3.9 mmol/L (3.5-5.1); PROTEIN - SERUM 6.3 g/dL (6.4-8.2)
[2019-11-11 05:46] LABS: MCV 89.1 fL (80.0-100.0); WBC 13.5 10x3/uL (4.8-10.8)
[2019-11-11 06:50] VITALS: BP 112/66
--- NOTE | 2019-11-11 08:00 | NUR ---
REPORT RECIEVED ASSUMED CARE. PATIENT IN BED WITH IV INTACT. NO COMPLAINTS OR SIGNS OF DISTRESS. CALL LIGHT WITHIN REACH.
[2019-11-11 08:59] VITALS: BP 117/60
[2019-11-11 13:41] VITALS: BP 108/59
[2019-11-11 18:29] VITALS: BP 124/57
--- NOTE | 2019-11-11 18:57 | NUR ---
PATIENT SITTING UP IN BED WITH NO COMPLAINTS AT THIS TIME. IV INTACT. TELE ON. CALL LIGHT WITHIN REACH.
[2019-11-11 21:49] VITALS: BP 111/57
[2019-11-12 01:49] VITALS: BP 114/50
--- NOTE | 2019-11-12 03:16 | NUR ---
PT RESTING IN BED. EYES CLOSED. NO SIGNS OF DISTRESS. BREATHING EVEN AND UNLABORED. 5LO2 NASAL CANNULA. IV SITE RT RA DRESSING CLEAN DRY AND INTACT. NO SIGNS OF INFECTION OR INFULTRATION. LUNG SOUNDS DIMINISHED. BOWEL SOUNDS ACTIVE. LT FA SKIN TEAR. DRESSING CLEAN DRY AND INTACT. WILL CONITNUE PLAN OF CARE. CALL LIGHT IN REACH. BED LOWERED AND LOCKED. BED RAILS UPX2.
--- NOTE | 2019-11-12 03:39 | NUR ---
I have reviewed this patient and I concur with the Shift Assessment completed by the Licensed Practical Nurse today this shift.
[2019-11-12 05:28] LABS: BASOPHILS 0 % (0-2); EOSINOPHILS 0 % (0-7); HEMATOCRIT 38.5 % (36.0-48.0); HEMOGLOBIN 12.1 g/dL (12-16); IMMATURE GRANULOCYTES 0.2 % (0-5); LYMPHOCYTES 5.3 % (15-50); MCH 27.9 pg (26.0-34.0); MCHC 31.4 g/dL (31.0-37.0); MCV 88.7 fL (80.0-100.0); MONOCYTES 1.8 % (2-11); NEUTROPHILS 92.7 % (40-80); PLATELET COUNT 273 10x3/uL (130-400); RBC 4.34 10x6/uL (4.00-5.40); RDW 14.5 % (11.5-14.5)
[2019-11-12 05:46] LABS: ALBUMIN 2.8 g/dL (3.4-5.0); ANION GAP 10.3 mmol/L (8-16); BILIRUBIN - TOTAL 0.34 mg/dL (0.2-1.3); CALCIUM 8.3 mg/dL (8.5-10.1); CARBON DIOXIDE 31.6 mmol/L (21.0-32.0); CREATININE - SERUM 1.5 mg/dL (0.6-1.3); MAGNESIUM - SERUM 1.7 mg/dL (1.8-2.4); PHOSPHOROUS 4.9 mg/dL (2.5-4.9); POTASSIUM - SERUM 3.9 mmol/L (3.5-5.1); PROTEIN - SERUM 6.1 g/dL (6.4-8.2)
[2019-11-12 06:01] VITALS: BP 110/62
--- NOTE | 2019-11-12 08:00 | NUR ---
ASSESSMENT PER FLOWSHEET. PATIENT IS WITHOUT DISTRESS.ISOLATION MAINTAINED
[2019-11-12 09:37] VITALS: BP 128/65
--- NOTE | 2019-11-12 12:55 | NUR ---
Nutrition Follow-up: Good/fair PO intake. Remains in droplet precautions: flu B +. Diet: Low Sodium, No Lactose PO intake: 50-80% yesterday No new wt; last wt: 95# (11/09) Labs noted: Na 135, Glu 161, Ca 8.3, Mg 1.7, Alb 2.8 Meds noted: Solumedrol, Pepcid, Lasix -Encourage PO intake and honor food preferences within diet restrictions. -Offer nutrition supplements. -Monitor wt; noted daily wts ordered. -RD following.
[2019-11-12 13:42] VITALS: BP 112/49
--- NOTE | 2019-11-12 14:11 | MORECARE ---
CASE MANAGEMENT DISCHARGE SUMMARY PATIENT: RL SIU UNIT: [id number] ADM DATE: 11/09/19 AGE: 84 : 35 SEX: F ROOM/BED: D.2217 AUTHOR: MARIA ISABEL KAY PHYSICIAN: REFERRING PHYSICIAN: BECKI YING MD DATE OF SERVICE: 11/12/19 Discharge Plan Patient Name: RL SIU Facility: [facility]:[place] : 1935 Planned Disposition: Home with Home Health Anticipated Discharge Date: 11/14/19 Discharge Date: Expected LOS: 5 Initial Reviewer: [email or web address] Initial Review Date: 11/12/2019 Generated: 11/12/19 3:10 pm Patient Name: RL SIU Page 10786 at 1411 All edits/amendments must be made on the electronic document DICTATION DATE: 11/12/19 1410 SULFUR CHLORIDE OPERATOR: DIANELYS 11/12/19 1410 RPT#: [id number] DC DATE: STATUS: ADM IN [facility] [address] [place] [address] END OF REPORT
--- NOTE | 2019-11-12 14:28 | MORECARE ---
CASE MANAGEMENT DISCHARGE SUMMARY PATIENT: RL SIU UNIT: [id number] ADM DATE: 11/09/19 AGE: 84 : 35 SEX: F ROOM/BED: D.2217 AUTHOR: MARIA ISABEL KAY PHYSICIAN: REFERRING PHYSICIAN: BECKI YING MD DATE OF SERVICE: 11/12/19 Discharge Plan Patient Name: RL SIU [facility] [facility] 1935 Planned Disposition: Home with Home Health Anticipated Discharge Date: 11/14/19 Discharge Date: Expected LOS: 5 Initial Reviewer: [email or web address] Initial Review Date: 11/12/2019 Generated: 11/12/19 3:27 pm DCPIA - Discharge Planning Initial Assessment Updated by [email or web address]: Yuridia Winchester on 11/12/19 2:25 pm * Is the patient Alert and Oriented? Yes * How many steps to enter\exit or inside your home? 0/0 * PCP Dr. Christianson * Pharmacy [facility] * Preadmission Environment Home with Family * ADLs Independent * Equipment Cane Nebulizer Oxygen * List name and contact numbers for known caregivers / representatives who currently or will assist patient after discharge: Juan Siu - [facility] - [phone] * Verbal permission to speak to the caregivers and representatives has been obtained from the patient. Yes * Community resources currently utilized Home Health * Please name any agencies selected above. [facility] is oxygen DME * Additional services required to return to the preadmission environment? No * Can the patient safely return to the preadmission environment? Yes * Has this patient been hospitalized within the prior 30 days at any hospital? Yes Last DP export: 11/12/19 1:11 pm Patient Name: RL SIU Page 27274 at 1428 All edits/amendments must be made on the electronic document DICTATION DATE: 11/12/191426 GAME TESTER: DIANELYS 11/12/191426 RPT#: [id number] DC DATE: STATUS: ADM IN [facility] [address] [place] [address] END OF REPORT
--- NOTE | 2019-11-12 14:36 | MORECARE ---
CASE MANAGEMENT DISCHARGE SUMMARY PATIENT: RL SIU UNIT: [id number] ADM DATE: 11/09/19 AGE: 84 : 35 SEX: F ROOM/BED: D.2217 AUTHOR: ELIZA,DOC PHYSICIAN: REFERRING PHYSICIAN: BECKI YING MD DATE OF SERVICE: 11/12/19 Discharge Plan Patient Name: RL SIU Facility: [facility]:[place] : 1935 Planned Disposition: Home with Home Health Anticipated Discharge Date: 11/14/19 Discharge Date: Expected LOS: 5 Initial Reviewer: [email or web address] Initial Review Date: 11/12/2019 Generated: 11/12/19 3:36 pm Comments DCP- Discharge Planning Updated by [email or web address]: Yuridia Winchester on 11/12/19 1:[address] Patient Name: RL SIU Admission Status: ER Accout number: [id number] Admission Date: 11-09-2019 : 1935 Admission Diagnosis:HYPERTENSIVE HEART DISEASE WITH HEART FAILURE Attending: BECKI YING Current LOS: 3 Anticipated DC Date: 11-14-2019 Planned Disposition: Home with Home Health Primary Insurance: MEDICARE A & B Discharge Planning Comments: CM met with patient to complete initial dc planning assessment. CM educated patient on the CM role and verbal consent given by patient to complete assessment. Patient lives at home with her son. At discharge patient plans to return and feels this is a safe discharge. States her son will pick her up for discharge. CM discussed availability of home health, rehab services, and medical equipment. Patient states she has [facility] and would like to continue this on discharge. I notified Lawrence with [facility] and clinical faxed. CM will continue to follow and will assist as needed with dc plans/needs. Job Analysis Manager: Yuridia Winchester DCPIA - Discharge Planning Initial Assessment Updated by [email or web address]: Yuridia Winchester on 11/12/19 2:25 pm * Is the patient Alert and Oriented? Yes * How many steps to enter\exit or inside your home? 0/0 * PCP Dr. Christianson * Pharmacy [facility] * Preadmission Environment Home with Family * ADLs Independent * Equipment Cane Nebulizer Oxygen * List name and contact numbers for known caregivers / representatives who currently or will assist patient after discharge: Juan Siu - [facility] - [phone] * Verbal permission to speak to the caregivers and representatives has been obtained from the patient. Yes * Community resources currently utilized Home Health * Please name any agencies selected above. [facility] is oxygen DME * Additional services required to return to the preadmission environment? No * Can the patient safely return to the preadmission environment? Yes * Has this patient been hospitalized within the prior 30 days at any hospital? Yes Coverage Notice Reviewer: [id number] Winchester Notice Issued Date-Time: 11/12/2019 14:28 Notice Type: IM Discharge Notice Notice Delivered To: Patient Relationship to Patient: Self Wagon Person Name: Delivery Method: HAND - Hand Delivered Samra Days: Prior Verbal Notification: Recipient Understood Notice: Yes Recipient Signature: Yes Med Rec Note Co-signed by Attending: Coverage Notice Comment: IMM explained, signed, given, copy placed in MR Reviewer: [id number] Winchester Notice Issued Date-Time: 11/12/2019 14:28 Notice Type: Patient Choice Letter Notice Delivered To: Patient Relationship to Patient: Self Wagon Person Name: Delivery Method: HAND - Hand Delivered Samra Days: Prior Verbal Notification: Recipient Understood Notice: Yes Recipient Signature: Yes Med Rec Note Co-signed by Attending: Coverage Notice Comment: TERESSA for [facility] Last DP export: 11/12/19 1:28 pm Patient Name: RL SIU Page 22216 at 1436 All edits/amendments must be made on the electronic document DICTATION DATE: 11/12/19 1436 INSPECTOR AUTOMATIC TYPEWRITER: DIANELYS 11/12/19 1436 RPT#: [id number] DC DATE: STATUS: ADM IN [facility] [address] [place] [address] END OF REPORT
--- NOTE | 2019-11-12 14:43 | MORECARE ---
CASE MANAGEMENT DISCHARGE SUMMARY PATIENT: RL SIU UNIT: [id number] ADM DATE: 11/09/19 AGE: 84 : 35 SEX: F ROOM/BED: D.2217 AUTHOR: ELIZA,DOC PHYSICIAN: REFERRING PHYSICIAN: BECKI YING MD DATE OF SERVICE: 11/12/19 Discharge Plan Patient Name: RL SIU Facility: [facility]:[place] : 1935 Planned Disposition: Home with Home Health Anticipated Discharge Date: 11/14/19 Discharge Date: Expected LOS: 5 Initial Reviewer: [email or web address] Initial Review Date: 11/12/2019 Generated: 11/12/19 3:43 pm Comments DCP- Discharge Planning Updated by [email or web address]: Yuridia Winchester on 11/12/19 1:[address] Patient Name: RL SIU Admission Status: ER Accout number: [id number] Admission Date: 11-09-2019 : 1935 Admission Diagnosis:HYPERTENSIVE HEART DISEASE WITH HEART FAILURE Attending: BECKI YING Current LOS: 3 Anticipated DC Date: 11-14-2019 Planned Disposition: Home with Home Health Primary Insurance: MEDICARE A & B Discharge Planning Comments: CM met with patient to complete initial dc planning assessment. CM educated patient on the CM role and verbal consent given by patient to complete assessment. Patient lives at home with her son. At discharge patient plans to return and feels this is a safe discharge. States her son will pick her up for discharge. CM discussed availability of home health, rehab services, and medical equipment. Patient states she has [facility] and would like to continue this on discharge. I notified Lawrence with [facility] and clinical faxed. CM will continue to follow and will assist as needed with dc plans/needs. Knit Tubing Dyer: Yuridia Winchester DCPIA - Discharge Planning Initial Assessment Updated by [email or web address]: Yuridia Winchester on 11/12/19 2:25 pm * Is the patient Alert and Oriented? Yes * How many steps to enter\exit or inside your home? 0/0 * PCP Dr. Christianson * Pharmacy [facility] * Preadmission Environment Home with Family * ADLs Independent * Equipment Cane Nebulizer Oxygen * List name and contact numbers for known caregivers / representatives who currently or will assist patient after discharge: Juan Siu - [facility] - [phone] * Verbal permission to speak to the caregivers and representatives has been obtained from the patient. Yes * Community resources currently utilized Home Health * Please name any agencies selected above. [facility] oxygen DME * Additional services required to return to the preadmission environment? No * Can the patient safely return to the preadmission environment? Yes * Has this patient been hospitalized within the prior 30 days at any hospital? Yes External Providers External Provider: [facility] Next Contact Date: Service Request Date: Service Type: Resolution: Reviewer: Comments: Coverage Notice Reviewer: [email or web address] Winchester Notice Issued Date-Time: 11/12/2019 14:28 Notice Type: IM Discharge Notice Notice Delivered To: Patient Relationship to Patient: Self Saturator Operator Name: Delivery Method: HAND - Hand Delivered Samra Days: Prior Verbal Notification: Recipient Understood Notice: Yes Recipient Signature: Yes Med Rec Note Co-signed by Attending: Coverage Notice Comment: IMM explained, signed, given, copy placed in MR Reviewer: [id number] Winchester Notice Issued Date-Time: 11/12/2019 14:28 Notice Type: Patient Choice Letter Notice Delivered To: Patient Relationship to Patient: Self Saturator Operator Name: Delivery Method: HAND - Hand Delivered Sarma Days: Prior Verbal Notification: Recipient Understood Notice: Yes Recipient Signature: Yes Med Rec Note Co-signed by Attending: Coverage Notice Comment: TERESSA for [facility] Last DP export: 11/12/19 1:36 pm Patient Name: RL SIU Page 27026 at 1443 All edits/amendments must be made on the electronic document DICTATION DATE: 11/12/19 1443 TECHNICAL SERVICES LIBRARIAN: DIANELYS 11/12/19 1443 RPT#: [id number] DC DATE: STATUS: ADM IN [facility] [address] [place] [address] END OF REPORT
[2019-11-12 17:16] VITALS: BP 121/62
[2019-11-12 20:00] VITALS: BP 104/42
[2019-11-13] VITALS: BP 105/40
--- NOTE | 2019-11-13 02:09 | NUR ---
PT RESTING IN BED. EYES CLOSED. NO SIGNS OF DISTRESS. BREATHING EVEN AND LABORED. 5LO2 NASAL CANNULA. LUNG SOUNDS DIMINISHED. BOWEL SOUNDS ACTIVEX4. LT FA SKIN TEAR DRESSING CLEAN DRY AND INTACT. RT FA IV SITE DRESSING CLEAN DRY AND INTACT. NO SIGNS OF INFECTION OR INFULTRATION. WILL CONTINUE PLAN OF CARE. CALL LIGHT IN REACH. BED LOWERED AND LOCKED. BED RAILS UPX2.
--- NOTE | 2019-11-13 03:52 | NUR ---
PT O2 DROPPED DOWN TO 82% ON 4LO2 NASAL CANNULA. CALLED RT. COME AND DID BREATHING TREATMENT. UP O2 TO 8LO2 HIGH FLOW. PT HOLDING AT 92%. WILL CONTINUE TO MONITOR. PT STATES NO NEEDS AT THIS TIME. CALL LIGHT IN REACH.
[2019-11-13 04:00] VITALS: BP 107/3
[2019-11-13 04:32] LABS: BASOPHILS 0 % (0-2); EOSINOPHILS 0 % (0-7); HEMATOCRIT 40.8 % (36.0-48.0); HEMOGLOBIN 12.7 g/dL (12-16); IMMATURE GRANULOCYTES 0.1 % (0-5); LYMPHOCYTES 4.7 % (15-50); MCHC 31.1 g/dL (31.0-37.0); MCV 89.9 fL (80.0-100.0); MEAN PLATELET VOLUME 11.3 fL (7.4-10.4); MONOCYTES 3.6 % (2-11); NEUTROPHILS 91.6 % (40-80); PLATELET COUNT 288 10x3/uL (130-400); RBC 4.54 10x6/uL (4.00-5.40); RDW 14.9 % (11.5-14.5); WBC 10.9 10x3/uL (4.8-10.8)
[2019-11-13 05:04] LABS: ALBUMIN 3.1 g/dL (3.4-5.0); ANION GAP 13.8 mmol/L (8-16); BILIRUBIN - TOTAL 0.43 mg/dL (0.2-1.3); CALCIUM 8.6 mg/dL (8.5-10.1); CARBON DIOXIDE 29.9 mmol/L (21.0-32.0); CREATININE - SERUM 1.7 mg/dL (0.6-1.3); MAGNESIUM - SERUM 1.8 mg/dL (1.8-2.4); PHOSPHOROUS 4.5 mg/dL (2.5-4.9); POTASSIUM - SERUM 3.7 mmol/L (3.5-5.1); PROTEIN - SERUM 6.4 g/dL (6.4-8.2)
--- NOTE | 2019-11-13 06:19 | NUR ---
I have reviewed this patient and I concur with the Shift Assessment completed by the Licensed Practical Nurse today this shift.
[2019-11-13 09:39] VITALS: BP 84/51
[2019-11-13 12:48] VITALS: BP 101/59
--- NOTE | 2019-11-13 13:30 | NUR ---
ASSSTED TO BSC. REDNESS NOTED TO BUTTOCKS AND COCCXY.INSTRUCTED TO TURN Q2H
[2019-11-13 15:47] VITALS: BP 110/47; BP 119/69
--- NOTE | 2019-11-13 16:10 | NUR ---
HIGH RISK OF IMPAIRED SKIN INTEGRITY -TURN/REPOSITION Q 2 HOURS (REPOSITION HOURLY IF UP IN CHAIR) -FLOAT HEELS -PERSONAL CARE DAILY AND NEEDED. APPLY CALMOSEPTINE IF REDNESS IS NOTED DUE TO INCONTINENCE/MOISTURE -DOCUMENT SKIN ASSESSMENT Q SHIFT -CONSULT WOUND CARE IF PRESSURE INJURIES ARE PRESENT AND/OR FOR NON-BLANCHABLE REDNESS OVER BONY PROMINENCES
--- NOTE | 2019-11-13 17:22 | NUR ---
LABS ORDERED. DR. MARTEL TO SEE PATIENT. WILL CALL LABS IF EVLEVATED, PER DR. MARTEL
[2019-11-13 18:22] LABS: CKMB 5.5 U/L (0.0-3.6); CREATINE KINASE 86 UL (21-215)
[2019-11-13 18:26] LABS: TROPONIN-I 36.896 ng/mL (0.000-0.060)
--- NOTE | 2019-11-13 18:59 | NUR ---
PATIENT STILL DENIES PAIN. SHE IS WITHOUT SHORTNESS OF BREATH AT PRESENT. EATING DINNER.CONT PLAN OF CARE
[2019-11-13 20:00] VITALS: BP 108/62
[2019-11-14] VITALS: BP 110/67
[2019-11-14 00:46] LABS: CKMB 4.1 U/L (0.0-3.6); CREATINE KINASE 74 UL (21-215)
[2019-11-14 00:48] LABS: TROPONIN-I 35.808 ng/mL (0.000-0.060)
--- NOTE | 2019-11-14 02:02 | NUR ---
RIGHT FOREARM IV INFILTRATED. REMOVED IV CATHETER INTACT. 3 NURSES INCLUDING A NURSE FROM ICU ATTEMPTED TO START IV AND WERE UNSUCCESSFUL. PT REFUSES TO HAVE ANYMORE ATTEMPTS TO START IV. SHE TOLD ICU NURSE,"THAT'S IT, NO MORE. I'M DONE." WILL PUT IN CONSULT FOR VASCULAR NURSE.
[2019-11-14 04:00] VITALS: BP 118/69
[2019-11-14 05:33] LABS: BASOPHILS 0 % (0-2); EOSINOPHILS 0 % (0-7); HEMOGLOBIN 12.4 g/dL (12-16); IMMATURE GRANULOCYTES 0.3 % (0-5); LYMPHOCYTES 8.3 % (15-50); MCH 28.2 pg (26.0-34.0); MCV 90.9 fL (80.0-100.0); MEAN PLATELET VOLUME 11.7 fL (7.4-10.4); MONOCYTES 8.2 % (2-11); NEUTROPHILS 83.2 % (40-80); PLATELET COUNT 234 10x3/uL (130-400)
[2019-11-14 06:11] LABS: ALBUMIN 2.7 g/dL (3.4-5.0); ALKALINE PHOSPHATASE 72 U/L (30-120); ALT (SGPT) 36 U/L (10-68); BILIRUBIN - TOTAL 0.31 mg/dL (0.2-1.3); CALC OSMOLALITY 291 mosm/kg (275-300); CALCIUM 8.4 mg/dL (8.5-10.1); CARBON DIOXIDE 30.7 mmol/L (21.0-32.0); CHLORIDE - SERUM 103 mmol/L (98-107); CKMB 3.8 U/L (0.0-3.6); CREATINE KINASE 71 UL (21-215); CREATININE - SERUM 1.5 mg/dL (0.6-1.3); GLUCOSE 107 mg/dL (74-106); MAGNESIUM - SERUM 1.9 mg/dL (1.8-2.4); PROTEIN - SERUM 5.9 g/dL (6.4-8.2); SODIUM 140 mmol/L (136-145); TROPONIN-I 33.528 ng/mL (0.000-0.060); UREA NITROGEN 48 mg/dL (7-18); eGFR NON AFRICAN AMERICAN 35 mL/min (90-120)
--- NOTE | 2019-11-14 07:30 | NUR ---
PT SITTING UP IN BED. RR EVEN AND ULABORED. DENIES NEEDS OR PAIN AT THIS TIME. NO IV CURRENTLY. DROPLET PRECAUTIONS INTACT. CALL LIGHT WITHIN REACH. BED IN LOWEST POSITION. WILL CONTINUE TO MONITOR.
[2019-11-14 09:00] VITALS: BP 121/49
--- NOTE | 2019-11-14 10:30 | NUR ---
20G IV SITED TO RIGHT FOREARM AFTER SEVERAL ATTEMPTS, SL. DENIES NEEDS OR PAIN AT THIS TIME.
--- NOTE | 2019-11-14 12:30 | NUR ---
SPOKE WITH PTs SON FOR APPROX. 15 MINUTES. UPDATED ON POC WITH PTs APPROVAL . VERBALIZED UNDERSTANDING. TRANSFERED TO PTs ROOM.
--- NOTE | 2019-11-14 13:02 | NUR ---
THE PATIENT REFUSED ABG. THE PATIENT STATED " ABSOLUTLEY NOT".
[2019-11-14 14:18] VITALS: BP 129/48
--- NOTE | 2019-11-14 14:20 | NUR ---
PT SITLIGIA GUP IN BED, EYES CLOSED. NO DISTRESS NOTED. CALL LIGHT WITHIN REACH. RR EVEN AND UNLABORED. WILL CONTINUET O MONIITOR.
--- NOTE | 2019-11-14 18:36 | NUR ---
I have reviewed this patient and I concur with the Shift Assessment completed by the Licensed Practical Nurse today this shift.
[2019-11-14 20:00] VITALS: BP 97/47
[2019-11-15] VITALS: BP 102/44
[2019-11-15 04:00] VITALS: BP 95/40
--- NOTE | 2019-11-15 07:10 | NUR ---
PT RESTING IN BED. NO SIGNS OF DISTRESS. IV TO RIGHT WRIST PATENT NO RENDESS OR TENDERNESS. ON 5L HIGHFLOW NC. ON DROPLET ISO. ON TELEMETRY [address] DENIES ANY FURTHER NEED AT THIS TIME. CALL LIGHT IN REACH. BED LOW POSITION. NO FAMILY AT BEDSIDE AT THIS TIME.
[2019-11-15 07:21] LABS: BASOPHILS 0 % (0-2); EOSINOPHILS 0 % (0-7); HEMATOCRIT 45.3 % (36.0-48.0); HEMOGLOBIN 14.1 g/dL (12-16); IMMATURE GRANULOCYTES 0.1 % (0-5); LYMPHOCYTES 7.1 % (15-50); MCH 28.4 pg (26.0-34.0); MCHC 31.1 g/dL (31.0-37.0); MCV 91.1 fL (80.0-100.0); MEAN PLATELET VOLUME 11.5 fL (7.4-10.4); MONOCYTES 2.3 % (2-11); NEUTROPHILS 90.5 % (40-80); PLATELET COUNT 230 10x3/uL (130-400); RBC 4.97 10x6/uL (4.00-5.40); RDW 14.8 % (11.5-14.5)
[2019-11-15 07:24] LABS: ANION GAP 12.5 mmol/L (8-16); CALCIUM 8.7 mg/dL (8.5-10.1); CREATININE - SERUM 1.6 mg/dL (0.6-1.3); POTASSIUM - SERUM 4.5 mmol/L (3.5-5.1)
[2019-11-15 07:29] LABS: WBC 9.7 10x3/uL (4.8-10.8)
[2019-11-15 10:42] VITALS: BP 104/42
[2019-11-15 17:50] VITALS: BP 110/60
--- NOTE | 2019-11-15 18:16 | NUR ---
I have reviewed this patient and I concur with the Shift Assessment completed by the Licensed Practical Nurse today this shift.
[2019-11-15 22:30] VITALS: BP 97/46
[2019-11-16 01:25] VITALS: BP 98/49
[2019-11-16 04:13] VITALS: BP 104/43
[2019-11-16 04:52] LABS: BASOPHILS 0 % (0-2); EOSINOPHILS 0 % (0-7); HEMATOCRIT 40.5 % (36.0-48.0); HEMOGLOBIN 12.4 g/dL (12-16); IMMATURE GRANULOCYTES 0.2 % (0-5); LYMPHOCYTES 9.9 % (15-50); MCH 27.6 pg (26.0-34.0); MCHC 30.6 g/dL (31.0-37.0); MEAN PLATELET VOLUME 11.6 fL (7.4-10.4); MONOCYTES 6.1 % (2-11); NEUTROPHILS 83.8 % (40-80); PLATELET COUNT 222 10x3/uL (130-400); RDW 14.5 % (11.5-14.5)
--- NOTE | 2019-11-16 05:00 | NUR ---
RIGHT FOREARM IV NO LONGER PATENT. REMOVED CATHETER INTACT. IV RESITED TO LEFT HAND BY DUSTIN MCCAIN. NO OTHER NEEDS. WILL CONTINUE TO MONITOR.
[2019-11-16 05:25] LABS: ANION GAP 9.8 mmol/L (8-16); CALCIUM 8.3 mg/dL (8.5-10.1); CARBON DIOXIDE 31.4 mmol/L (21.0-32.0); CREATININE - SERUM 1.5 mg/dL (0.6-1.3); POTASSIUM - SERUM 4.2 mmol/L (3.5-5.1)
--- NOTE | 2019-11-16 07:35 | NUR ---
AWAKE AND ALERT. ORIENTED X3. C/O NOT HAVING AN APPETITE AFTER UD. WILL DISCUSS WITH RT. LUNGS HAVE FAINT CRACKLES AND DIMINISHED THROUGHOUT. OCCASSIONAL DRY COUGH NOTED. SKIN IS INTACT WITHOUT REDNESS. SL TO LEFT HAND IS PATENT WITHOUT REDNESS AT INSERTION SITE. DENIES OTHER NEEDS.
--- NOTE | 2019-11-16 09:00 | NUR ---
ATE ALL OF BREAKFAST. DENIES NEEDS.
[2019-11-16 09:27] VITALS: BP 109/48
--- NOTE | 2019-11-16 10:00 | NUR ---
AMBULATED IN [facility] WITH PT USING RW. TOOK AM MEDS WITHOUT DIFFICULTY. DENIES NEEDS.
--- NOTE | 2019-11-16 10:13 | NUR ---
Removed from Droplet Isolation, afebile post Flu+
--- NOTE | 2019-11-16 12:30 | NUR ---
LUNCH SERVED IN ROOM. FEEDS SELF WITHOUT ASSISTANCE. DENIES NEEDS.
[2019-11-16 13:19] VITALS: BP 111/40
--- NOTE | 2019-11-16 17:17 | NUR ---
PATIENT IS WITHOUT DISTRESS.CALL LIGHT IN REACH
[2019-11-16 17:47] VITALS: BP 105/37
--- NOTE | 2019-11-16 18:49 | NUR ---
AMBULATING IN HALLS,WITHOUT DISTRESS.CONT PLAN OF CARE
[2019-11-16 20:00] VITALS: BP 102/49
--- NOTE | 2019-11-16 20:38 | NUR ---
SITTING UP IN BED. ALERT AND ORIENTED X4. RESP IRREG. O2 @5L/HFC. NONPROD COUGH NOTED. BRUISES NOTED TO BUE. TELEMETRY SHOWS SR WITH RATE OF 64. SALINE LOCK NOTED TO LT HAND. DENIES PAIN. SR ELEVATED X2. CL IN REACH.
--- NOTE | 2019-11-16 23:35 | NUR ---
LYING IN BED WITH EYES CLOSED. RESP NONLABORED. O2 @ 5L/HFC. NO DISTRESS. CL IN REACH.
[2019-11-17] VITALS (7 sets, daily range): BP systolic 98–115; BP diastolic 42–64
--- NOTE | 2019-11-17 04:20 | NUR ---
LAB IN ROOM. CHEST XRAY DONE. SITTING UP IN BED, DROWSY. DENIES NEEDS. CL IN REACH.
[2019-11-17 05:20] LABS: ANION GAP 11.1 mmol/L (8-16); CALCIUM 8.2 mg/dL (8.5-10.1); CARBON DIOXIDE 30.4 mmol/L (21.0-32.0); CREATININE - SERUM 1.5 mg/dL (0.6-1.3); POTASSIUM - SERUM 4.5 mmol/L (3.5-5.1)
[2019-11-17 05:28] LABS: HEMATOCRIT 40.3 % (36.0-48.0); HEMOGLOBIN 12.8 g/dL (12-16); LYMPHOCYTES 11.2 % (15-50); MCH 28.1 pg (26.0-34.0); MCHC 31.8 g/dL (31.0-37.0); MCV 88.6 fL (80.0-100.0); MEAN PLATELET VOLUME 13.3 fL (7.4-10.4); NEUTROPHILS 80.7 % (40-80); RBC 4.55 10x6/uL (4.00-5.40); RDW 14.7 % (11.5-14.5)
[2019-11-17 05:34] LABS: PLATELET COUNT 111 10x3/uL (130-400)
--- NOTE | 2019-11-17 07:34 | NUR ---
ALERT AND ORIENTED. LUNGS DIMINISHED BILATERALLY. HEART SOUNDS S1 AND S2 HEARD IN ALL BLUM. BOWEL SOUNDS ACTIVE X 4. SKIN INTACT WITHOUT REDNESS. IV TO LEFT HAND SL PATENT WITHOUT REDNESS. DENIES NEEDS. BED LOW. CALL [place] AND PERSONAL ITEMS IN REACH. WILL CONTINUE TO MONITOR.
--- NOTE | 2019-11-17 09:01 | NUR ---
PATIENT REQUESTED AND SIGNED BED ALARM REFUSAL
--- NOTE | 2019-11-17 09:31 | NUR ---
Nutrition follow-up: Diet: low sodium PO intake ~75% average of last 3 meals Labs reviewed; BUN/Cr elevated Wt: 94# +BM PO intake has improved RDN following.
--- NOTE | 2019-11-17 09:34 | NUR ---
SPOKE WITH PATO GEORGE ABOUT PATIENT BP 109/57 AND GETTING BLOOD PRESSURE MEDICATION. STATES BP HAS BEEN STAYING LOW AND OK TO GIVE.
--- NOTE | 2019-11-17 12:34 | NUR ---
SITTING IN BED EATING LUNCH. DENIES NEEDS. WILL CONTINUE TO MONITOR.
--- NOTE | 2019-11-17 13:39 | NUR ---
WALK TEST PERFORMED FOR HOME O2 USE. PATIENT SAT 97% IN BED ON 4L O2 HF NC. DESAT TO 91% IN BED WITHOUT O2. PATIENT DESAT TO 85% WITHOUT O2 WHEN WALKING. SAT 91% ON 4L WHEN WALKING.
--- NOTE | 2019-11-17 20:58 | NUR ---
PT REFUSES TO WEAR BIPAP
[2019-11-18 01:08] VITALS: BP 101/48
--- NOTE | 2019-11-18 03:53 | NUR ---
1900)REC'D CHGE OF SHIFT WALKING ROUNDS IN BED EYES CLOSED RESP. DEEP AND EVEN.02 2L NC NO RESP DISTRESS OBSERVED.WILL CONTINUE TO MONITOR FOR ANY CHGES AND FOLLOW CURRENT PLAN OF CARE.
[2019-11-18 05:38] VITALS: BP 93/49
[2019-11-18 05:58] LABS: BASOPHILS 0 % (0-2); EOSINOPHILS 0.1 % (0-7); HEMATOCRIT 41.7 % (36.0-48.0); HEMOGLOBIN 12.8 g/dL (12-16); IMMATURE GRANULOCYTES 0.3 % (0-5); LYMPHOCYTES 9.5 % (15-50); MCHC 30.7 g/dL (31.0-37.0); MEAN PLATELET VOLUME 12.6 fL (7.4-10.4); MONOCYTES 7.4 % (2-11); NEUTROPHILS 82.7 % (40-80); RBC 4.57 10x6/uL (4.00-5.40); RDW 14.6 % (11.5-14.5); WBC 15.6 10x3/uL (4.8-10.8)
--- NOTE | 2019-11-18 06:00 | NUR ---
I have reviewed this patient and I concur with the Shift Assessment completed by the Licensed Practical Nurse today this shift.
[2019-11-18 06:07] LABS: MCV 91.2 fL (80.0-100.0); PLATELET COUNT 231 10x3/uL (130-400)
[2019-11-18 06:30] LABS: ANION GAP 5.6 mmol/L (8-16); CALCIUM 8.7 mg/dL (8.5-10.1); CARBON DIOXIDE 36.5 mmol/L (21.0-32.0); POTASSIUM - SERUM 4.1 mmol/L (3.5-5.1)
[2019-11-18 06:42] LABS: CREATININE - SERUM 1.1 mg/dL (0.6-1.3)
[2019-11-18 09:57] VITALS: BP 105/45
--- NOTE | 2019-11-18 10:27 | NUR ---
PER D/C ORDERS TO SEE IF PATIENT HAD LIGHTS ON, I CALLED DMITRY SIU (SON) AND HE STATES THAT POWER CAME ON THIS AM. I CALLED PATO RAMIREZ FOR HOME MEDS TO BE PUT INTO THE SYSTEM. AWAITING THIS FOR COMPLETEION OF DISCHARGE.
[2019-11-18] MEDS ORDERED: IPRAT-ALBUT 0.5-3 ML INH (10:29)
[2019-11-18] MEDS ORDERED: BROVANA15 MCG/2 M INH (10:29)
[2019-11-18] MEDS ORDERED: ALBUTEROL2.5 MG/3 M INH (10:29)
[2019-11-18] MEDS ORDERED: LASIX40 MG PO (10:30)
[2019-11-18] MEDS ORDERED: PULMICORT0.5 MG/21 UPD (10:30)
[2019-11-18] MEDS ORDERED: TESSALON PERLE100 MG PO (10:30)
[2019-11-18] MEDS ORDERED: AMIODARONE HCL200 MG PO (10:30)
[2019-11-18] MEDS ORDERED: CALMOSEPTINE OI71 GM TOPICAL (10:31)
[2019-11-18] MEDS ORDERED: PREDNISONE10 MG PO (10:32)
--- NOTE | 2019-11-18 11:53 | MORECARE ---
CASE MANAGEMENT DISCHARGE SUMMARY PATIENT: RL SIU UNIT: [id number] ADM DATE: 11/09/19 AGE: 84 : 35 SEX: F ROOM/BED: D.2217 AUTHOR: ELIZA,DOC PHYSICIAN: REFERRING PHYSICIAN: BECKI YING MD DATE OF SERVICE: 11/18/19 Discharge Plan Patient Name: RL SIU Facility: [facility]:[place] : 1935 Planned Disposition: Home with Home Health Anticipated Discharge Date: 11/14/19 Discharge Date: Expected LOS: 5 Initial Reviewer: [email or web address] Initial Review Date: 11/12/2019 Generated: 11/18/19 12:52 pm Comments DCP- Discharge Planning Updated by [email or web address]: Melonie German on 11/18/19 10:[address] Patient is discharging home today with [facility]. IMM served and explained. Peytonvikram Adams spoke with son to verify that there is power. Patient states she has home and portable O2. CM will continue to assist as needed DCP- Discharge Planning Updated by [id number]: Yuridia Winchester on 11/12/19 1:[address] Patient Name: RL SIU Admission Status: ER Accout number: [id number] Admission Date: 11-09-2019 : 1935 Admission Diagnosis:HYPERTENSIVE HEART DISEASE WITH HEART FAILURE Attending: BECKI YING Current LOS: 3 Anticipated DC Date: 11-14-2019 Planned Disposition: Home with Home Health Primary Insurance: MEDICARE A & B Discharge Planning Comments: CM met with patient to complete initial dc planning assessment. CM educated patient on the CM role and verbal consent given by patient to complete assessment. Patient lives at home with her son. At discharge patient plans to return and feels this is a safe discharge. States her son will pick her up for discharge. CM discussed availability of home health, rehab services, and medical equipment. Patient states she has [facility] and would like to continue this on discharge. I notified Lawrence with [facility] and clinical faxed. CM will continue to follow and will assist as needed with dc plans/needs. Baby Nurse: Yuridia Winchester DCPIA - Discharge Planning Initial Assessment Updated by [email or web address]: Yuridia Winchester on 11/12/19 2:25 pm * Is the patient Alert and Oriented? Yes * How many steps to enter\exit or inside your home? 0/0 * PCP Dr. Christianson * Pharmacy [facility] * Preadmission Environment Home with Family * ADLs Independent * Equipment Cane Nebulizer Oxygen * List name and contact numbers for known caregivers / representatives who currently or will assist patient after discharge: Juan Siu - [facility] - [phone] * Verbal permission to speak to the caregivers and representatives has been obtained from the patient. Yes * Community resources currently utilized Home Health * Please name any agencies selected above. [facility] is oxygen DME * Additional services required to return to the preadmission environment? No * Can the patient safely return to the preadmission environment? Yes * Has this patient been hospitalized within the prior 30 days at any hospital? Yes Coverage Notice Reviewer: [id number] Italo Winchester Notice Issued Date-Time: 11/12/2019 14:28 Notice Type: IM Discharge Notice Notice Delivered To: Patient Relationship to Patient: Self Warp Tier Name: Delivery Method: HAND - Hand Delivered Samra Days: Prior Verbal Notification: Recipient Understood Notice: Yes Recipient Signature: Yes Med Rec Note Co-signed by Attending: Coverage Notice Comment: IMM explained, signed, given, copy placed in MR Reviewer: [id number] Italo Winchester Notice Issued Date-Time: 11/12/2019 14:28 Notice Type: Patient Choice Letter Notice Delivered To: Patient Relationship to Patient: Self Warp Tier Name: Delivery Method: HAND - Hand Delivered Samra Days: Prior Verbal Notification: Recipient Understood Notice: Yes Recipient Signature: Yes Med Rec Note Co-signed by Attending: Coverage Notice Comment: TERESSA for [facility] [employer] Reviewer: [id number] Italo German Notice Issued Date-Time: 11/18/2019 11:45 Notice Type: IM Discharge Notice Notice Delivered To: Patient Relationship to Patient: Warp Tier Name: Delivery Method: HAND - Hand Delivered Samra Days: Prior Verbal Notification: Recipient Understood Notice: Yes Recipient Signature: Yes Med Rec Note Co-signed by Attending: Coverage Notice Comment: Last DP export: 11/12/19 1:43 pm Patient Name: RL SIU Page 33522 at 1153 All edits/amendments must be made on the electronic document DICTATION DATE: 11/18/191151 PICTURE FRAMES INSPECTOR: DIANELYS 11/18/191151 RPT#: [id number] DC DATE: STATUS: ADM IN [facility] [address] [place] [address] END OF REPORT
--- NOTE | 2019-11-18 12:41 | NUR ---
WENT OVER PT DC PAPERS WELL FOLLOW UP APPOINTMENTS. ALL QUESTIONS ANSWERED IV DC WITH CATHETER INTACT. NO OTHER NEEDS VOICED
--- NOTE | 2019-11-18 15:08 | NUR ---
PT STILL WAITING FOR SON TO COME PICK HER UP, CALLED NUMBER AND NO ANSWER WILL CONTINUE TO WAIT FOR SON. EXPLAINED TO PT THAT SON STATED HE WILL CALL WHEN HE ARRIVES
--- NOTE | 2019-11-18 15:38 | NUR ---
I have reviewed this patient and I concur with the Shift Assessment completed by the Licensed Practical Nurse today this shift.
--- NOTE | 2019-11-19 09:06 | MORECARE ---
CASE MANAGEMENT DISCHARGE SUMMARY PATIENT: RL SIU UNIT: [id number] ADM DATE: 11/09/19 AGE: 84 : 35 SEX: F ROOM/BED: D.2217 AUTHOR: ELIZADOC PHYSICIAN: REFERRING PHYSICIAN: BECKI YING MD DATE OF SERVICE: 11/19/19 Discharge Plan Patient Name: RL SIU Facility: [facility]:[place] : 1935 Planned Disposition: Home with Home Health Anticipated Discharge Date: 11/14/19 Discharge Date: 11/18/2019 Expected LOS: 5 Initial Reviewer: [id number] Initial Review Date: 11/12/2019 Generated: 11/19/19 10:05 am Comments DCP- Discharge Planning Updated by [email or web address]: Melonie German on 11/18/19 10:[address] Patient is discharging home today with [facility]. IMM served and explained. Peytonvikram Adams spoke with son to verify that there is power. Patient states she has home and portable O2. CM will continue to assist as needed DCP- Discharge Planning Updated by [id number]: Yuridia Winchester on 11/12/19 1:[address] Patient Name: RL SIU Admission Status: ER Accout number: [id number] Admission Date: 11-09-2019 : 1935 Admission Diagnosis:HYPERTENSIVE HEART DISEASE WITH HEART FAILURE Attending: BECKI YING Current LOS: 3 Anticipated DC Date: 11-14-2019 Planned Disposition: Home with Home Health Primary Insurance: MEDICARE A & B Discharge Planning Comments: CM met with patient to complete initial dc planning assessment. CM educated patient on the CM role and verbal consent given by patient to complete assessment. Patient lives at home with her son. At discharge patient plans to return and feels this is a safe discharge. States her son will pick her up for discharge. CM discussed availability of home health, rehab services, and medical equipment. Patient states she has [facility] and would like to continue this on discharge. I notified Lawrence with [facility] and clinical faxed. CM will continue to follow and will assist as needed with dc plans/needs. Delivery Man: Yuridia Winchester DCPIA - Discharge Planning Initial Assessment Updated by [id number]: Yuridia Winchester on 11/12/19 2:25 pm * Is the patient Alert and Oriented? Yes * How many steps to enter\exit or inside your home? 0/0 * PCP Dr. Christianson * Pharmacy [facility] * Preadmission Environment Home with Family * ADLs Independent * Equipment [employer]ane Nebul[employer] Oxygen * List name and contact numbers for known caregivers / representatives who currently or will assist patient after discharge: Juan Siu - jaci - [phone] * Verbal permission to speak to the caregivers and representatives has been obtained from the patient. Yes * Community resources currently utilized Home Health * Please name any agencies selected above. [facility] oxygen DME * Additional services required to return to the preadmission environment? No * Can the patient safely return to the preadmission environment? Yes * Has this patient been hospitalized within the prior 30 days at any hospital? Yes Coverage Notice Reviewer: [id number] Italo Winchester Notice Issued Date-Time: 11/12/2019 14:28 Notice Type: Patient Choice Letter Notice Delivered To: Patient Relationship to Patient: [employer] Education Director Name: Delivery Method: HAND - Hand Delivered Samra Days: Prior Verbal Notification: Recipient Understood Notice: Yes Recipient Signature: Yes Med Rec Note Co-signed by Attending: Coverage Notice Comment: TERESSA for [facility] and [employer] Reviewer: [id number] Italo Winchester Notice Issued Date-Time: 11/12/2019 14:28 Notice Type: IM Discharge Notice Notice Delivered To: Patient Relationship to Patient: [employer] Education Director Name: Delivery Method: HAND - Hand Delivered Samra Days: Prior Verbal Notification: Recipient Understood Notice: Yes Recipient Signature: Yes Med Rec Note Co-signed by Attending: Coverage Notice Comment: IMM explained, signed, given, copy placed in MR Reviewer: [id number] Italo German Notice Issued Date-Time: 11/18/2019 11:45 Notice Type: IM Discharge Notice Notice Delivered To: Patient Relationship to Patient: Academy Education Director Name: Delivery Method: HAND - Hand Delivered Samra Days: Prior Verbal Notification: Recipient Understood Notice: Yes Recipient Signature: Yes Med Rec Note Co-signed by Attending: Coverage Notice Comment: Last DP export: 11/18/19 10:53 a Patient Name: RL SIU Page [id number] at 0906 All edits/amendments must be made on the electronic document DICTATION DATE: 11/19/19904 VISITOR SERVICES ASSISTANT: DIANELYS 11/19/19904 RPT#: [id number] DC DATE:11/18/19 STATUS: DIS IN [facility] [address] [place] [address] END OF REPORT
== END 2019-11-18 17:06 | disposition home health service (06) | DRG 280 ==
LOC: D.ER 11:54 → D.MS 16:01
PROVIDERS: Family Medicine; Internal Medicine Cardiovascular Disease; ADMIT Internal Medicine Nephrology; ATTEND Internal Medicine Nephrology
DX: I11.0 Hypertensive heart disease with heart failure (principal); J11.00 Influenza due to unidentified influenza virus with unspecified type of pneumonia; I21.4 Non-ST elevation (NSTEMI) myocardial infarction; J96.21 Acute and chronic respiratory failure with hypoxia; F17.203 Nicotine dependence unspecified, with withdrawal; N17.9 Acute kidney failure, unspecified; I50.33 Acute on chronic diastolic (congestive) heart failure; J43.9 Emphysema, unspecified; E78.5 Hyperlipidemia, unspecified; I73.9 Peripheral vascular disease, unspecified; M19.90 Unspecified osteoarthritis, unspecified site; I35.0 Nonrheumatic aortic (valve) stenosis; G35 Multiple sclerosis; I70.0 Atherosclerosis of aorta; I25.10 Atherosclerotic heart disease of native coronary artery without angina pectoris

== ENCOUNTER 2019-12-08 00:28 | Inpatient (IN) | payer MEDICARE, OTHER ==
[~2019-12-08] VITALS: Ht 167.6 cm; Wt 50.2 kg
[2019-12-08] VITALS (8 sets, daily range): BP systolic 83–101; BP diastolic 32–39; BMI 16.2
[~2019-12-08 00:28] MED LIST changes: +ALBUTEROL2.5 MG/3 M INH; +AMIODARONE HCL200 MG PO; +BROVANA15 MCG/2 M INH; +CALMOSEPTINE OI71 GM TOPICAL; +GABAPENTIN100 MG PO; +IPRAT-ALBUT 0.5-3 ML INH; +LASIX40 MG PO; +PULMICORT0.5 MG/21 UPD; +TESSALON PERLE100 MG PO
[2019-12-08 01:14] LABS: BASOPHILS 0.1 % (0-2); EOSINOPHILS 0 % (0-7); HEMATOCRIT 31.3 % (36.0-48.0); IMMATURE GRANULOCYTES 0.3 % (0-5); LYMPHOCYTES 4.9 % (15-50); MCH 27.9 pg (26.0-34.0); MCHC 31.9 g/dL (31.0-37.0); MCV 87.2 fL (80.0-100.0); MEAN PLATELET VOLUME 11.2 fL (7.4-10.4); MONOCYTES 6.2 % (2-11); NEUTROPHILS 88.5 % (40-80); PLATELET COUNT 226 10x3/uL (130-400); RBC 3.59 10x6/uL (4.00-5.40); RDW 15.6 % (11.5-14.5); WBC 18.3 10x3/uL (4.8-10.8)
[2019-12-08 01:22] LABS: CALC OSMOLALITY 278 mosm/kg (275-300); CALCIUM 7.9 mg/dL (8.5-10.1); CARBON DIOXIDE 25.6 mmol/L (21.0-32.0); CHLORIDE - SERUM 103 mmol/L (98-107); CREATININE - SERUM 1.5 mg/dL (0.6-1.3); GLUCOSE 114 mg/dL (74-106); POTASSIUM - SERUM 3.5 mmol/L (3.5-5.1); SODIUM 137 mmol/L (136-145); UREA NITROGEN 24 mg/dL (7-18); eGFR NON AFRICAN AMERICAN 35 mL/min (90-120)
[2019-12-08 01:28] LABS: BILIRUBIN NEGATIVE (NEGATIVE); GLUCOSE NEGATIVE (NEGATIVE); KETONE NEGATIVE (NEGATIVE); NITRITE NEGATIVE (NEGATIVE); UROBILINOGEN NORMAL (NORMAL)
[2019-12-08 01:43] LABS: ALBUMIN 2.2 g/dL (3.4-5.0); ALKALINE PHOSPHATASE 52 U/L (30-120); ALT (SGPT) 18 U/L (10-68); AMYLASE - SERUM 42 U/L (25-115); BILIRUBIN - TOTAL 0.68 mg/dL (0.2-1.3); CKMB 8.7 U/L (0.0-3.6); CREATINE KINASE 246 UL (21-215); PROTEIN - SERUM 5.3 g/dL (6.4-8.2)
[2019-12-08 01:51] LABS: LIPASE 26 U/L (73-393); TROPONIN-I 0.093 ng/mL (0.000-0.060)
--- NOTE | 2019-12-08 02:45 | NUR ---
PT RESTING RIGHT SIDE LYING, DENIES NEEDS. NC AT 4L/MIN CONTINUOUS FLOW FROM 5L. NO SIGNS DISTRESS NOTED. WILL CONTINUE TO MONITOR.
--- NOTE | 2019-12-08 04:27 | NUR ---
EDP VERBAL ORDER FOR 500ML NS BOLUS AT THIS TIME.
[2019-12-08] MEDS ORDERED: CARAFATE1 G PO (06:06)
[2019-12-08] MEDS ORDERED: REMERON30 MG PO (06:07)
--- NOTE | 2019-12-08 06:41 | NUR ---
PT ARRIVED ON UNIT AT 0604 VIA STRETCHER ESCORTED BY ER NURSE. TRANSFERRED TO BED AND POSITIONED FOR COMFORT. 2 PILLOWS UNDER HEAD, AND BRIDGED HEELS WITH ANOTHER PILLOW. SCD'S PLACED ON BLE PER ORDER. TELEMETRY NOT AVAILABLE AT THIS TIME PER COMMUNICATIONS BILLING ANALYST...PT PLACED ON WAIT LIST. COCCYX RED AND NON BLANCHABLE..WILL START TURN SCHEDULE.
--- NOTE | 2019-12-08 07:32 | NUR ---
GONE FOR A TEST VIA BED, O2.
--- NOTE | 2019-12-08 09:30 | NUR ---
SHE IS VERY UNSTEADY ON HER FEET. HER COCCYX IS RED, I APPLIED A MEPILEX TO HER BOTTOM. THE LEFT HEEL HAS A DRY BLISTER ON IT. I APPLIED MEPILEX TO BOTH HEELS.
--- NOTE | 2019-12-08 12:48 | NUR ---
PT REFUSES ABG
--- NOTE | 2019-12-08 13:14 | NUR ---
SHE REFUSED TO HAVE HER ABG'S DONE.
[2019-12-09 00:23] VITALS: BP 86/39
[2019-12-09 04:33] LABS: BASOPHILS 0 % (0-2); EOSINOPHILS 0 % (0-7); HEMATOCRIT 30.2 % (36.0-48.0); HEMOGLOBIN 9.2 g/dL (12-16); IMMATURE GRANULOCYTES 0.2 % (0-5); LYMPHOCYTES 3.8 % (15-50); MCH 27.1 pg (26.0-34.0); MCHC 30.5 g/dL (31.0-37.0); MCV 89.1 fL (80.0-100.0); MEAN PLATELET VOLUME 11.8 fL (7.4-10.4); MONOCYTES 4.1 % (2-11); NEUTROPHILS 91.9 % (40-80); PLATELET COUNT 188 10x3/uL (130-400); RBC 3.39 10x6/uL (4.00-5.40); RDW 15.8 % (11.5-14.5)
[2019-12-09 04:43] LABS: WBC 12.8 10x3/uL (4.8-10.8)
[2019-12-09 04:57] LABS: ALBUMIN 1.8 g/dL (3.4-5.0); ANION GAP 13.9 mmol/L (8-16); BILIRUBIN - TOTAL 0.52 mg/dL (0.2-1.3); CALCIUM 7.3 mg/dL (8.5-10.1); CREATININE - SERUM 1.4 mg/dL (0.6-1.3); POTASSIUM - SERUM 3.9 mmol/L (3.5-5.1); PROTEIN - SERUM 4.9 g/dL (6.4-8.2)
[2019-12-09 06:04] VITALS: BP 93/36
--- NOTE | 2019-12-09 07:27 | NUR ---
RECEIVED PT FROM SENIOR PRINCIPAL SOFTWARE ENGINEER. PT ALERT AND ORIENTED SITTING UPRIGHT IN BED UPON ENTERING. PT IS HARD OF HEARING. PT HAS A CT WITH CONTRAST SCHEDULED THIS MORNING FOR POSSIBLE PE. PT HAS BEEN PRE-MEDICATED. PT IS A DAILY WEIGHT, HAS A MEPILEX ON COCCYX, UP WITH ASSIST. PT HAS A LEFT WRIST IV WITH NS @ 100 AND HUMIDIFIED O2 4.5L NC. PT NEEDS A STOOL AND UA SAMPLE. NEEDS FAMILY CONTACTED IN RELATION TO PT CODE STATUS. DENIES ANY NEEDS. BED IN LOWEST POSITION, BED RAILS X2, CALL LIGHT WITHIN REACH. WILL CONTINUE TO MONITOR.
--- NOTE | 2019-12-09 07:30 | NUR ---
CT WITH BE HERE IN 10-15 MINUTES TO GET PT FOR CT.
--- NOTE | 2019-12-09 10:57 | NUR ---
PT RESTING COMFORTABLY IN BED DR. JOSEPH HAS PT NPO, WANTS BRONCHOSCHOPY & BAL TODAY. DENIES ANY NEEDS. WILL CONTINUE TO MONITOR.
--- NOTE | 2019-12-09 11:09 | NUR ---
HUNG NEW BAG OF IV FLUIDS.
--- NOTE | 2019-12-09 12:55 | NUR ---
ASSISTED PT TO BEDSIDE COMMODE. COLLECTED URINE SPECIMEN. WILL TRANSPORT TO THE LAB. PT IS RESTING COMFORTABLY IN BED AT THIS TIME. BED IN LOWEST POSITION, BED RAILS X2, CALL LIGHT WITHIN REACH. WILL CONTINUE TO MONITOR.
[2019-12-09 13:17] VITALS: BP 119/56
--- NOTE | 2019-12-09 14:09 | NUR ---
Pt admitted with nonblanchable redness noted on coccyx (stage 1 pressure injury ) Mepilex was applied for protection. Left heel is dry and cracking. It is being floated while in bed. Wound care continues to monitor.
[2019-12-09 16:01] LABS: BILIRUBIN NEGATIVE (NEGATIVE); GLUCOSE NEGATIVE (NEGATIVE); KETONE NEGATIVE (NEGATIVE); NITRITE NEGATIVE (NEGATIVE); SPECIFIC GRAVITY 1.015 (1.005-1.020); UROBILINOGEN NORMAL (NORMAL)
--- NOTE | 2019-12-09 16:24 | NUR ---
PT RESTING COMFORTABLY IN BED WITH EYES CLOSED. NO S/S OF DISTRESS NOTED AT THIS TIME. WILL CONTINUE TO MONITOR.
[2019-12-09 17:29] VITALS: BP 113/51
--- NOTE | 2019-12-09 18:23 | NUR ---
ATTEMPTED TO CALL POA TO GET A CODE STATUS 3 TIMES. NO ANSWER FROM POA (SON) OR THE DAUGHTER.
--- NOTE | 2019-12-09 18:31 | NUR ---
I have reviewed this patient and I concur with the Shift Assessment completed by the Licensed Practical Nurse today this shift.
[2019-12-09 20:00] VITALS: BP 112/56
[2019-12-10] VITALS: BP 120/67
--- NOTE | 2019-12-10 02:49 | NUR ---
I have reviewed this patient and I concur with the Shift Assessment completed by the Licensed Practical Nurse today this shift.
[2019-12-10 04:00] VITALS: BP 143/85
[2019-12-10 04:52] LABS: ANION GAP 24.7 mmol/L (8-16); CALCIUM 8.3 mg/dL (8.5-10.1); CARBON DIOXIDE 14.5 mmol/L (21.0-32.0); CREATININE - SERUM 1.9 mg/dL (0.6-1.3); POTASSIUM - SERUM 5.2 mmol/L (3.5-5.1)
--- NOTE | 2019-12-10 07:00 | NUR ---
WENT INTO THE ROOM TO WRITE MY NAME ON HER BOARD. SHE IS BREATHING SWALLOW, HER O2 SAT IS 71% ON 4 LITERS NC. SHE IS COOL TO THE TOUCH. RT CALLED, INCREASED HER O2 TO 6 LITERS NC. A RR WAS CALLED SHORTLY AFTER AND SHE WAS MOVED TO THE ICU UNIT.
[2019-12-10 09:39] VITALS: Ht 167.6 cm; Wt 50.2 kg
--- NOTE | 2019-12-10 09:56 | NUR ---
PT WAS RAPID RESPONSE THIS AM FOR BEING LATHARGIC. PT WAS BROUGHT BY RAPID RESPONSE TEAM TO THE UNIT. PT WAS PLACED ON ICU MONITORS AND PLACED ON A BIPAP TO MAINTAIN O2 LEVELS. PT HR WAS 24 WHEN ALARM NOTIFIED RUSHED INTO THE ROOM THE PT WAS INB PEA RHYTHM. CPR WAS STARTED CODE BLUE WAS STARTED AT 0820. TIME OF WAS CALLED AT 0856. FAMILY HAS BEEN CALLED SEVERAL TIMES WITH NO RESPONSE OR CONTACT. TRAVEL COTA WAS NOTIFIED DUE TO NO FAMILY RESPONSE.
[2019-12-10 16:20] LABS: NEUT - BF 18 %
[2019-12-10 16:21] LABS: MACROPHAGES BF 47 %; MESOTHELIALS BF 1 %
--- NOTE | 2019-12-10 19:15 | MORECARE ---
CASE MANAGEMENT DISCHARGE SUMMARY PATIENT: RL SIU UNIT: [id number] ADM DATE: 12/08/19 AGE: 84 : 35 SEX: F ROOM/BED: D.2308 AUTHOR: MARIA ISABEL KAY PHYSICIAN: REFERRING PHYSICIAN: BECKI YING MD DATE OF SERVICE: 12/10/19 Discharge Plan Patient Name: RL SIU [facility] [facility] 1935 Planned Disposition: Anticipated Discharge Date: Discharge Date: 12/10/2019 Expected LOS: Initial Reviewer: [email or web address] Initial Review Date: 12/08/2019 Generated: 12/10/19 8:14 pm Patient Name: RL SIU Page [id number] at 1915 All edits/amendments must be made on the electronic document DICTATION DATE: 12/10/191913 MARINA SALES AND SERVICE SUPERVISOR: DIANELYS 12/10/191913 RPT#: [id number] DC DATE:12/10/19 STATUS: DIS IN [facility] [address] [facility] [place] [address] END OF REPORT
[2019-12-11 11:09] LABS: FUNGUS STAIN Final report (())
[2019-12-11 15:10] LABS: ACID FAST SMEAR Negative (()); AFB SPECIMEN PROCESSING Concentration (())
[2019-12-14 13:09] LABS: FUNGUS CULTURE RESULT 1 Candida albicans (()); FUNGUS MYCOLOGY CULTURE Preliminary report (()); FUNGUS STAIN RESULT 1 Yeast observed (())
== END 2019-12-10 15:14 | DRG 871 ==
LOC: D.ER 00:28 → D.ICU 03:41 → D.MS 03:41 → D.ICU 12-10 07:48
PROVIDERS: Family Medicine; Internal Medicine Pulmonary Disease; ADMIT Internal Medicine Nephrology; ATTEND Internal Medicine Nephrology
PROC: 0B9F8ZX Drainage of Right Lower Lung Lobe, Via Natural or Artificial Opening Endoscopic, Diagnostic (ICD-10-PCS; principal; 2019-12-09 19:32)
PROC: 0BH17EZ Insertion of Endotracheal Airway into Trachea, Via Natural or Artificial Opening (ICD-10-PCS; 2019-12-10)
PROC: 5A12012 Performance of Cardiac Output, Single, Manual (ICD-10-PCS; 2019-12-10)
DX: A41.9 Sepsis, unspecified organism (principal); J96.21 Acute and chronic respiratory failure with hypoxia; I26.99 Other pulmonary embolism without acute cor pulmonale; I50.33 Acute on chronic diastolic (congestive) heart failure; E43 Unspecified severe protein-calorie malnutrition; J18.9 Pneumonia, unspecified organism; I13.0 Hypertensive heart and chronic kidney disease with heart failure and stage 1 through stage 4 chronic kidney disease, or unspecified chronic kidney disease; N17.9 Acute kidney failure, unspecified; Z68.1 Body mass index [BMI] 19.9 or less, adult; F17.203 Nicotine dependence unspecified, with withdrawal; J98.11 Atelectasis; N18.9 Chronic kidney disease, unspecified; I08.3 Combined rheumatic disorders of mitral, aortic and tricuspid valves; D50.9 Iron deficiency anemia, unspecified; D63.1 Anemia in chronic kidney disease; E78.5 Hyperlipidemia, unspecified; K21.9 Gastro-esophageal reflux disease without esophagitis; J43.9 Emphysema, unspecified